=== PATIENT | female | born 1940 | race Caucasian/White ===

== ENCOUNTER 2019-01-02 16:22 | Emergency (ER) | payer MEDICARE ==
--- OUTSIDE RECORDS SUMMARY | 2019-01-02 17:22 | XMS REPORT | Continuity of Care Document ---
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 Onset: 07/09/2011 Cobalamin deficiency Levi Bliss M.D. Onset: 07/09/2011 Acute upper respiratory infection, Levi Bliss M.D. Onset: 09/17/2016 unspecified Anxiety state Levi Bliss M.D. Onset: 09/17/2016 Cataract Levi Bliss M.D. Onset: 12/29/2013 Injury of hip region Levi Bliss M.D. Onset: 10/17/2011 Social History Type Date Description Comments Sex Unknown Tobacco Use Start: Unknown Nonsmoker Tobacco Use Start: Unknown Nonsmoker Smoking Status Reviewed: 12/29/18 Nonsmoker Allergies, Adverse Reactions, Alerts Active Allergies Reaction Severity Comments Date Penicillin Medications Active Medications SIG Qnty Indications Ordering Provider Date Doxycycline 100 mg twice a 21caps S30.861A Beau Zaragoza, 12/29/2018 Monohydrate day for 21 days M.D. 100mg Capsules Ondansetron HCL take one by mouth 20tabs R11.0 Beau Zaragoza, 12/29/2018 4mg every 6 hours as M.D. Tablets needed for vomiting Doxycycline 100 mg twice a 3caps S30.861A Beau Zaragoza, 12/29/2018 Monohydrate day for 7 days. M.D. 100mg Extra pills to Capsules complete 21 day course Flonase Allergy instill 2 sprays 16units Lisa 12/20/2016 Relief in each nostril HUMPHREY Vasquez 50mcg/Act daily as needed Suspension Travatan Z instill one drop Unknown 0.004% into both eyes Solution daily Lisinopril 1 by mouth every 90tabs Levi Hollingsworth 5mg day Kellie Bliss Tablets Ranitidine 150 1 by mouth every Unknown Maximum Strength day 150mg Tablets History Medications Zestril Take 1 Tablet By 30tabs Levi Hollingsworth 04/22/2017 - 5mg Tablets Mouth Every Day Kellie Bliss 04/21/2018 Azithromycin 2 by mouth every 6tabs Christine 10/01/2016 - 250mg Tablets day x1 then 1 by Melinda, 10/06/2016 mouth every day Afnp-C x 4 more days Guaifenesin-Codeine 1-2 teaspoon 120ml Mary Gonzalez 09/27/2016 - every at bedtime HUMPHREY Vasquez 07/20/2017 100-10mg/5ML Syrup as needed for cough Benzonatate 1 by mouth three 45caps Mary Gonzalez 09/27/2016 - 100mg Capsules times a day as HUMPHREY Vasquez 11/19/2016 needed coughing Proair HFA 2 puffs every 4 1units Mary Gonzalez 09/27/2016 - 108(90Base) mcg/Act hours as needed HUMPHREY Vasquez 07/20/2017 Aerosol Prednisone 3 x 3 days 2 x 3 18tabs Levi Hollingsworth 11/16/2015 - 20mg Tablets days 1 x 3 days Kellie Bliss 01/24/2016 Flonase instill 2 sprays 16units Levi Hollingsworth 06/27/2015 - 50mcg/Act Suspension in each nostril Kellie Bliss 12/20/2016 daily as needed Doxycycline Hyclate 1 po bid 20caps Christine 09/08/2013 - 100mg [place], 09/18/2013 Capsules Afnp-C Zostavax in ject sq 1units Linda Guillermo 06/27/2012 - 49700Pcc/0.65ML Kellie Husain 11/19/2012 Solution Rec pune Lisinopril take 1 tablet by 30tabs Lisa 10/20/2011 - 5mg Tablets mouth every day HUMPHREY Vasquez 04/22/2017 Physical Therapy needs PT to jose Hollingsworth 10/17/2011 - hip Kellie Bliss 11/06/2011 Physical Therapy treatment and Levi Hollingsworth 03/08/2010 - evaluation low Kellie Bliss 10/17/2011 back pain Omeprazole 1-2 po qd 60caps 536.8 Maryam Irene 02/09/2010 - 20mg Capsules DR YIN 11/16/2015 Amrix 1 po qd 21caps 726.19 Beau Singh 12/13/2008 - 15mg Caps ER 24HR Kellie Zaragoza 12/20/2008 Physical Therapy treatment and 726.19 Beau Singh 12/13/2008 - evaluation ascencion Zaragoza M.D. 12/25/2008 shoulder pain Hydrochlorothiazide Take 1 Tablet 90tabs Levi Hollingsworth 08/12/2006 - 25mg Daily Kellie Bliss 10/17/2011 Tablets Hydrochlorothiazide 1 po qd 30caps Levi Hollingsworth 01/18/2006 - 12.5mg Kellie Bliss 08/12/2006 Capsules Tessalon Pearls 1 po tid prn 30units Sussy Mart, 03/17/2004 - 100mg Afnp-C 01/18/2006 Zithromax 2 Tabs Day 1 6units Sussy Mart, 03/17/2004 - 250mg Afnp-C 03/22/2004 1 Tab qd Days 2 Thru 5 Nasacort Aq 2 sprays q 1units Levi Hollingsworth 12/04/2002 - nostril qd Kellie Bliss 06/27/2015 Z-Pack Levi Hollingsworth 09/24/2000 - Kellie Bliss 12/04/2002 Keflex 1 PO tid 28units [facility] 04/07/1999 - 250mg [facility] 05/14/2000 [place] Zithromax 2 Tabs Day 1 6units Bacilio Guerrero, 03/13/1999 - 250mg Kellie 04/07/1999 1 Tab qd Days 2 Thru 5 Joslyn 1 bid 30units Levi Hollingsworth 05/15/1997 - 60mg Kellie Bliss 03/13/1999 Robitussin ac 1-2 tsp po q4h 4Oz Christine 05/07/1997 - prn cough [place], 09/15/2013 Afnp-C Medrol as Directed 1unqi Bansal 05/07/1997 - Kellie Mcwilliams 05/14/1997 Vancenase 0unqi Bansal 05/07/1997 - Kellie Mcwilliams 12/04/2002 Prempro 1 PO qd 0unqi Bansal 05/07/1997 - 0.625/2.5 Kellie Mcwilliams 01/18/2006 Zantac take 1 tablet by Unknown - 150mg Tablets mouth twice a 12/27/2018 day Mucinex DM 1 tablet 2 x a Unknown - 30-600mg Tablets ER day as needed 07/20/2017 12HR for cough Joslyn Allergy once daily Unknown - 60mg Tablets 11/19/2016 Patanase 2 sprays each Unknown - 0.6% Solution nare once daily 07/20/2017 Patanase 2 spray ea Unknown - 0.6% Solution nostril qd for 06/27/2015 allergies Timolol Maleate 1 gtt each eye Unknown - 0.25% Solution qd 06/27/2015 Travatan Z instill 1 drop Unknown - 0.004% Solution into both eyes 01/24/2016 daily Vitamin C 2 po qd Unknown - 1000mg Tablets 12/27/2018 Claritin 1 po qd 10tabs Unknown - 10mg Tablets 06/27/2015 Co Enzymne Q10 Unknown - 07/20/2017 Red Yeast Rice Unknown - 07/20/2017 Mucinex DM Unknown - 06/27/2015 Claritin-D 12 Hour Unknown - Tablets ER 11/21/2011 12HR Calcium W/ Vit D Unknown - 07/20/2017 Mmulti Vitamin Unknown - 07/20/2017 Lisinopril Unknown - Tablets 10/20/2011 Prevacid 1 po qd 30caps Unknown - 15mg Capsules 02/09/2010 Medications Administered in Office Medication SIG Qnty Indications Ordering Provider Date Injection Subcutaneous Or Levi Bliss M.D. 07/20/2017 Intramuscular Injection H1N1 MDCR vaccine any route Levi Bliss M.D. 07/20/2009 Injection Immunizations CPT Code Status Date Vaccine Lot # [id number] Given 06/09/2018 Pneumococcal Immunization 07970 Given 04/10/2018 High-Dose, Influenza Virus Vacccine-fluzone 65 and older 22077 Given 05/16/2015 High-Dose, Influenza Virus Vacccine-fluzone 65 and older 32607 Given 05/18/2013 DO Not Use Split Influenza Virus Vaccine 12848 Given 07/17/2012 Zostivax 37592 Given 05/14/2011 DO Not Use Split Influenza Virus Vaccine 73005 Given 02/10/2008 Tetanus And Diptheria Adult Preservative Free [id number] >7Yrs Vital Signs Date Vital Result Comment 12/30/2018 9:09am BP Systolic 122 mmHg BP Diastolic 62 mmHg Heart Rate 66 /min Body Temperature 97.2 F 12/29/2018 8:34am BP Systolic 128 mmHg BP Diastolic 60 mmHg Heart Rate 78 /min Body Temperature 97.5 F Weight 132.00 lb 12/27/2018 11:23am BP Systolic 140 mmHg BP Diastolic 62 mmHg Heart Rate 86 /min Body Temperature 97.7 F Weight 130.00 lb 03/12/2018 1:51pm BP Systolic 128 mmHg BP Diastolic 62 mmHg Heart Rate 68 /min Body Temperature 98.3 F Respiratory Rate 16 /min Height 62.5 inches 5'2.50" Weight 131.00 lb BMI (Body Mass Index) 23.6 kg/m2 07/20/2017 11:02am BP Systolic 142 mmHg BP Diastolic 80 mmHg Heart Rate 60 /min Body Temperature 97.9 F Respiratory Rate 16 /min Height 62.5 inches 5'2.50" Weight 131.00 lb BMI (Body Mass Index) 23.6 kg/m2 10/01/2016 9:51am BP Systolic 136 mmHg BP Diastolic 52 mmHg Heart Rate 88 /min Body Temperature 97.5 F Respiratory Rate 20 /min O2 % BldC Oximetry 97 % Height 62.5 inches 5'2.50" Weight 127.25 lb BMI (Body Mass Index) 22.9 kg/m2 09/27/2016 8:27am BP Systolic 144 mmHg BP Diastolic 54 mmHg Heart Rate 88 /min Body Temperature 98.9 F Respiratory Rate 18 /min Height 62.5 inches 5'2.50" Weight 134.12 lb BMI (Body Mass Index) 24.1 kg/m2 09/17/2016 9:26am BP Systolic 138 mmHg BP Diastolic 74 mmHg Heart Rate 68 /min Body Temperature 97.7 F Respiratory Rate 16 /min Height 62.5 inches 5'2.50" Weight 127.00 lb BMI (Body Mass Index) 22.9 kg/m2 02/02/2016 1:05pm BP Systolic 150 mmHg BP Diastolic 70 mmHg Heart Rate 78 /min Body Temperature 98.0 F Height 62.5 inches 5'2.50" Weight 136.38 lb BMI (Body Mass Index) 24.5 kg/m2 01/24/2016 2:33pm BP Systolic 130 mmHg BP Diastolic 58 mmHg Heart Rate 76 /min Body Temperature 98.1 F Respiratory Rate 16 /min Height 62.5 inches 5'2.50" Weight 137.00 lb BMI (Body Mass Index) 24.7 kg/m2 11/16/2015 9:19am BP Systolic 140 mmHg BP Diastolic 62 mmHg Heart Rate 72 /min Body Temperature 98.1 F Height 62.5 inches 5'2.50" Weight 134.00 lb BMI (Body Mass Index) 24.1 kg/m2 10/17/2015 3:18pm BP Systolic 124 mmHg BP Diastolic 80 mmHg Heart Rate 72 /min Body Temperature 97.9 F Respiratory Rate 20 /min O2 % BldC Oximetry 97 % Height 62.5 inches 5'2.50" Weight 134.00 lb BMI (Body Mass Index) 24.1 kg/m2 06/27/2015 1:38pm BP Systolic 126 mmHg BP Diastolic 70 mmHg Heart Rate 62 /min Body Temperature 97.4 F Respiratory Rate 16 /min Height 62.5 inches 5'2.50" Weight 132.00 lb BMI (Body Mass Index) 23.8 kg/m2 12/29/2013 1:45pm BP Systolic 134 mmHg BP Diastolic 70 mmHg Heart Rate 80 /min Body Temperature 98.6 F Respiratory Rate 16 /min Height 62.5 inches 5'2.50" Weight 135.12 lb BMI (Body Mass Index) 24.3 kg/m2 09/08/2013 10:39am BP Systolic 146 mmHg BP Diastolic 90 mmHg Heart Rate 66 /min Body Temperature 98.9 F Respiratory Rate 18 /min Height 62.5 inches 5'2.50" Weight 136.00 lb BMI (Body Mass Index) 24.5 kg/m2 11/19/2012 12:09pm BP Systolic 136 mmHg BP Diastolic 72 mmHg Heart Rate 48 /min Body Temperature 98.9 F Respiratory Rate 16 /min Height 62.5 inches 5'2.50" Weight 134.25 lb BMI (Body Mass Index) 24.2 kg/m2 11/21/2011 9:16am BP Systolic 102 mmHg BP Diastolic 62 mmHg Heart Rate 72 /min Body Temperature 98.6 F Height 62.5 inches 5'2.50" Weight 130.00 lb BMI (Body Mass Index) 23.4 kg/m2 11/06/2011 9:07am BP Systolic 138 mmHg BP Diastolic 62 mmHg Heart Rate 66 /min Body Temperature 99.0 F Height 62.5 inches 5'2.50" Weight 132.00 lb BMI (Body Mass Index) 23.8 kg/m2 10/17/2011 5:10pm BP Systolic 150 mmHg BP Diastolic 82 mmHg Heart Rate 72 /min Body Temperature 98.2 F Height 62.5 inches 5'2.50" Weight 135.00 lb BMI (Body Mass Index) 24.3 kg/m2 03/08/2010 1:42pm BP Systolic 144 mmHg BP Diastolic 70 mmHg Heart Rate 78 /min Height 62.5 inches 5'2.50" Weight 128.00 lb BMI (Body Mass Index) 23.0 kg/m2 02/09/2010 9:38am BP Systolic 148 mmHg BP Diastolic 74 mmHg Heart Rate 66 /min Body Temperature 98.5 F Height 62.5 inches 5'2.50" Weight 128.00 lb BMI (Body Mass Index) 23.0 kg/m2 02/01/2010 7:56am BP Systolic 140 mmHg BP Diastolic 70 mmHg Heart Rate 72 /min Body Temperature 97.2 F Height 62.5 inches 5'2.50" Weight 131.00 lb BMI (Body Mass Index) 23.6 kg/m2 02/16/2009 4:05pm BP Systolic 156 mmHg BP Diastolic 64 mmHg Heart Rate 68 /min Weight 129.00 lb 12/13/2008 11:42am BP Systolic 140 mmHg BP Diastolic 68 mmHg Heart Rate 72 /min Body Temperature 98.8 F Respiratory Rate 16 /min Height 62.5 inches 5'2.50" Weight 130.00 lb BMI (Body Mass Index) 23.4 kg/m2 08/24/2008 1:04pm BP Systolic 124 mmHg BP Diastolic 70 mmHg Heart Rate 72 /min Height 62.5 inches 5'2.50" Weight 126.00 lb BMI (Body Mass Index) 22.7 kg/m2 10/08/2006 9:03am BP Systolic 136 mmHg BP Diastolic 70 mmHg Heart Rate 72 /min Height 62.5 inches 5'2.50" Weight 132.00 lb BMI (Body Mass Index) 23.8 kg/m2 08/12/2006 1:21pm BP Systolic 154 mmHg BP Diastolic 80 mmHg Heart Rate 74 /min Height 62.5 inches 5'2.50" Weight 136.00 lb BMI (Body Mass Index) 24.5 kg/m2 01/18/2006 9:09am BP Systolic 144 mmHg BP Diastolic 70 mmHg Heart Rate 72 /min Height 62.5 inches 5'2.50" Weight 135.00 lb BMI (Body Mass Index) 24.3 kg/m2 03/17/2004 1:59pm BP Systolic 128 mmHg BP Diastolic 72 mmHg Heart Rate 64 /min Body Temperature 97.8 F Height 62.5 inches 5'2.50" Weight 130.00 lb BMI (Body Mass Index) 23.4 kg/m2 01/26/2003 1:50pm BP Systolic 118 mmHg BP Diastolic 60 mmHg Heart Rate 60 /min Height 62.5 inches 5'2.50" 12/29/2002 10:29am BP Systolic 124 mmHg BP Diastolic 56 mmHg Heart Rate 68 /min Body Temperature 99.5 F Height 62.5 inches 5'2.50" Weight 134.00 lb BMI (Body Mass Index) 24.1 kg/m2 12/04/2002 11:37am BP Systolic 148 mmHg BP Diastolic 68 mmHg Heart Rate 74 /min Body Temperature 98.6 F Height 62 inches 5'2" Weight 135.00 lb BMI (Body Mass Index) 24.7 kg/m2 09/10/2000 1:32pm BP Systolic 120 mmHg BP Diastolic 78 mmHg Heart Rate 80 /min Body Temperature 98.3 F Height 62 inches 5'2" Weight 139.00 lb BMI (Body Mass Index) 25.4 kg/m2 05/14/2000 9:30am BP Systolic 126 mmHg LA SM Cuff BP Diastolic 70 mmHg LA SM Cuff Heart Rate 68 /min Height 62 inches 5'2" Weight 138.00 lb BMI (Body Mass Index) 25.2 kg/m2 04/07/1999 2:11pm Body Temperature 98.4 F 03/13/1999 11:02am Body Temperature 98.2 F Weight 140.00 lb 05/07/1997 12:00am BP Systolic 104 mmHg BP Diastolic 60 mmHg Body Temperature 98.3 F Weight 135.50 lb 135 lbs. 8 ozs. Down 4.5 LBS 04/15/1997 12:00am Body Temperature 98.1 F Weight 140.00 lb Results Test Date Facility Test Result H/L Range Note CBC Electronic a 12/29/2018 Charlie Pappas([facility]) WBC 4.4 x10^3/UL 4.0- 10.0 RBC 3.81 x10^6/UL Low 3.93-6.00 HGB 11.4 g/dL Low 12.0-17.0 HCT 34 % Low 35-50 MCV 90.0 fL 80.0-95.0 MCH 29.9 pg 25.6-32.2 MCHC 33.2 g/dL 32.2-36.0 RDW-CV 11.9 % 11.6-14.4 PLT 125 x10^3/UL Low 163-400 MPV 10.4 fL 9.4-12.4 Erin# 3.80 x10^3/UL 1.56-6.13 Lymph# 0.33 x10^3/UL Low 1.18-3.74 [place]# 0.19 x10^3/UL Low 0.24-0.82 Eos # 0.0 x10^3/UL 0.0-0.5 Baso # 0.01 x10^3/UL 0.01-0.08 Erin% 86.4 % High 34.0-70.0 Lymph % 7.5 % Low 20.0-52.0 [place]% 4.3 % Low 5.0-12.0 Eos% 0.9 % 0.7-7.0 Baso% 0.2 % 0.1-1.2 Comprehensive Metabolic 03/13/2018 Charlie Elyse(a) Sodium 134 mEq/L 134-149 Prof Potassium 4.7 mEq/L 3.6-5.5 Chloride 103 mEq/L 94-112 Carbon Dioxide 24 mEq/L 21-32 Glucose 97 mg/dL 70-105 BUN 20 mg/dL 6-26 Creatinine 0.9 mg/dL 0.6-1.4 BUN/Creat Ratio 22.2 CALC 8.0-36.0 Calcium 9.2 mg/dL 8.6-10.2 Total Protein 6.4 g/dL 6.4-8.3 Albumin 4.3 g/dL 3.8-5.5 Globulin 2.1 g/dL 2.0-4.8 A/G Ratio 2.0 CALC 0.6-2.3 Alk. Phosphatase 58 U/L 30-110 Alt (SGPT) 12 U/L 7-35 Ast (Sgot) 15 U/L 5-34 Total Bilirubin 0.7 mg/dL 0.2-1.3 GFR Non- >60 ml/min/1.73m^ >=60 GFR >60 ml/min/1.73m^ >=60 Lipid Profile 03/13/2018 Charlie Elyse(a) Cholesterol 200 mg/dL 120- 200 Triglycerides 77 mg/dL 30-200 HDL Cholesterol 59 mg/dL 30-85 LDL (Calculated) 126 CALC 0-129 VLDL Cholesterol 15 mg/dL 0-50 HDL Risk Factor 3.4 CALC 0.0-4.4 CBC Electronic Fma 03/13/2018 Charlie Elyse([facility]) WBC 6.7 x10^3/UL 4.0- 10.0 RBC 3.77 x10^6/UL Low 3.93-6.00 HGB 11.5 g/dL Low 12.0-17.0 1 HCT 34 % Low 35-50 2 MCV 89.9 fL 80.0-95.0 MCH 30.5 pg 25.6-32.2 MCHC 33.9 g/dL 32.2-36.0 RDW-CV 11.7 % 11.6-14.4 PLT 190 x10^3/UL 163-400 MPV 9.5 fL 9.4-12.4 Erin# 3.47 x10^3/UL 1.56-6.13 Lymph# 2.23 x10^3/UL 1.18-3.74 [place]# 0.53 x10^3/UL 0.24-0.82 Eos # 0.4 x10^3/UL 0.0-0.5 Baso # 0.03 x10^3/UL 0.01-0.08 Erin% 51.8 % 34.0-70.0 Lymph % 33.2 % 20.0-52.0 [place]% 7.9 % 5.0-12.0 Eos% 6.6 % 0.7-7.0 Baso% 0.4 % 0.1-1.2 CBC Auto Diff 09/18/2016 [facility] [place] White Blood Count 10.8 10^3/uL N 3.5-10.8 Red Blood Count 4.09 10^6/uL N 4.0-5.4 Hemoglobin 12.5 g/dL N 12.0-16.0 Hematocrit 36 % N 35-47 Mean Corpuscular Volume 88 fL N 80-97 Mean Corpuscular Hemoglobin 31 pg N 27-31 Mean Corpuscular HGB Conc 35 g/dL N 31-36 Red Cell Distribution Width 13 % N 10.5-15 Platelet Count 256 10^3/uL N 150-450 Mean Platelet Volume 7 um3 Low 7.4-10.4 Abs Neutrophils 7.3 10^3/uL N 1.5-7.7 Abs Lymphocytes 2.3 10^3/uL N 1.0-4.8 Abs Monocytes 0.7 10^3/uL N 0-0.8 Abs Eosinophils 0.4 10^3/uL N 0-0.6 Abs Basophils 0.1 10^3/uL N 0-0.2 Abs Nucleated RBC 0.01 10^3/uL N Granulocyte % 67.5 % N 38-83 Lymphocyte % 21.2 % Low 25-47 Monocyte % 6.9 % N 1-9 Eosinophil % 3.8 % N 0-6 Basophil % 0.6 % N 0-2 Nucleated Red Blood Cells % 0.1 N Comp Metabolic Panel 09/18/2016 [facility] Sodium 128 mmol/L Low 133-145 Potassium 4.9 mmol/L N 3.5-5.0 Chloride 96 mmol/L Low 101-111 Co2 Carbon Dioxide 28 mmol/L N 22-32 Anion Gap 4 mmol/L N 2-11 Glucose 95 mg/dL N 70-100 Blood Urea Nitrogen 11 mg/dL N 6-24 Creatinine 0.82 mg/dL N 0.51-0.95 BUN/Creatinine Ratio 13.4 N 8-20 Calcium 9.7 mg/dL N 8.6-10.3 Total Protein 6.7 g/dL N 6.4-8.9 Albumin 4.5 g/dL N 3.2-5.2 Globulin 2.2 g/dL N 2-4 Albumin/Globulin Ratio 2.0 N 1-3 Total Bilirubin 0.80 mg/dL N 0.2-1.0 Alkaline Phosphatase 69 U/L N 34-104 Alt 18 U/L N 7-52 Ast 15 U/L N 13-39 Egfr Non- 68.1 N >60 Egfr 87.6 N >60 3 Lipid Profile (Trig/Chol/HDL) 09/18/2016 [facility] [place] Triglycerides 127 mg/dL N 4 Cholesterol 175 mg/dL N 5 HDL Cholesterol 48.5 mg/dL N 6 LDL Cholesterol 101 mg/dL N 7 Laboratory test 11/16/2015 [facility] Sedimentation Rate 10mm finding (607)- - Complete Blood 11/16/2015 Guerra Elyse([facility]) WBC 6.9 3.6-9.6 Count x10^3/UL RBC 4.17 x10^6/UL 3.90-5.70 HGB 13.1 g/dL 12.1-17.2 HCT 38 % 36-50 MCV 90.0 fL 82.2-97.4 MCH 31.3 pg 27.6-33.3 MCHC 34.7 g/dL 33.0-35.5 RDW 12.7 % 11.6-13.7 PLT 236 x10^3/UL 150-400 MPV 7.7 fL 7.4-10.4 Gran # 5.1 x10^3/UL 1.5-7.2 Lymph# 1.4 x10^3/UL 0.7-4.9 [place]# 0.4 x10^3/UL 0.1-0.9 Gran % 72.7 % 42.2-75.2 Lymph % 21.5 % 20.5-51.1 [place]% 5.8 % 1.7-9.3 Laboratory test 11/16/2015 [facility] Immunoglobulin E, 258 IU/mL High 0- 100 8 finding [address] [place] [address] (607)- - Comprehensive 06/29/2015 Charlie Elyse([facility]) Sodium 132 mEq/L Low 134- 149 9 Metabolic Prof Potassium 4.4 mEq/L 3.6-5.5 Chloride 95 mEq/L 94-112 Carbon Dioxide 25 mEq/L 21-32 Glucose 106 mg/dL High 70-105 10 BUN 20 mg/dL 6-26 Creatinine 0.8 mg/dL 0.6-1.4 BUN/Creat Ratio 25.0 CALC 8.0-36.0 Calcium 10.0 mg/dL 8.6-10.2 Total Protein 7.5 g/dL 6.4-8.3 Albumin 4.8 g/dL 3.8-5.5 Globulin 2.7 g/dL 2.0-4.8 A/G Ratio 1.8 CALC 0.6-2.3 Alk. Phosphatase 59 U/L 30-110 Alt (SGPT) 18 U/L 7-35 Ast (Sgot) 26 U/L 5-34 Total Bilirubin 0.8 mg/dL 0.2-1.3 GFR Non- >60 ml/min/1.73m^ >=60 GFR >60 ml/min/1.73m^ >=60 Lipid Profile 06/29/2015 Charlie Elyse([facility]) Cholesterol 226 mg/dL High 120-200 Triglycerides 92 mg/dL 30-200 HDL Cholesterol 65 mg/dL 30-85 LDL (Calculated) 143 CALC High 0-129 VLDL Cholesterol 18 mg/dL 0-50 HDL Risk Factor 3.5 CALC 0.0-4.4 Complete Blood Count 06/29/2015 Charlie Elyse(a) WBC 7.2 x10^3/UL 3.6 -9.6 RBC 4.05 x10^6/UL 3.90-5.70 HGB 12.6 g/dL 12.1-17.2 HCT 37 % 36-50 MCV 91.0 fL 82.2-97.4 MCH 31.0 pg 27.6-33.3 MCHC 33.9 g/dL 33.0-35.5 RDW 12.4 % 11.6-13.7 PLT 243 x10^3/UL 150-400 MPV 7.6 fL 7.4-10.4 Gran # 4.5 x10^3/UL 1.5-7.2 Lymph# 2.4 x10^3/UL 0.7-4.9 [place]# 0.3 x10^3/UL 0.1-0.9 Gran % 60.0 % 42.2-75.2 Lymph % 34.5 % 20.5-51.1 [place]% 5.5 % 1.7-9.3 Comprehensive Metabolic 11/27/2012 Charlie Pappas([facility]) Albumin 4.7 g/dL 3.8-5.5 Prof Alk. Phos. 69 U/L 30-110 Alt (SGPT) 17 U/L 7-35 Ast (Sgot) 18 U/L 5-34 BUN 15 mg/dL 6-26 Calcium 9.4 mg/dL 8.6-10.2 Chloride 98 mEq/L 94-112 Creatinine 0.9 mg/dL 0.6-1.4 Carbon Dioxide 25 mEq/L 21-32 Glucose 99 mg/dL 70-105 Sodium 134 mEq/L 134-149 Total Bilirubin 0.8 mg/dL 0.2-1.3 Total Protein 6.7 g/dL 6.3-8.1 Potassium 4.8 mEq/L 3.6-5.5 Globulin 2.0 g/dL 2.0-4.8 A/G Ratio 2.3 Calc 0.6-2.3 BUN/Creat Ratio 16.3 Calc 8.0-36.0 Lipid Profile 11/27/2012 Guerra Elyse([facility]) Cholesterol 222 mg/dL High 120-200 HDL 57 mg/dL 30-85 Triglycerides 81 mg/dL 30-200 HDL Risk Factor 3.9 CALC 0.0-4.4 LDL (Calculated) 149 CALC High 0-129 VLDL (Calculated) 16 mg/dL 0-50 Laboratory test 11/06/2011 [facility] Hematocrit 40 % 36.1 - finding (607)- - (Fma/CMC/CTX) 50.3 Comprehensive 05/18/2011 Guerra Elyse([facility]) Albumin 4.7 g/dL 3.8-5.5 Metabolic Prof Alk. Phos. 77 U/L 30-110 Alt (SGPT) 19 U/L 7-35 Ast (Sgot) 21 U/L 5-34 BUN 16 mg/dL 6-26 Calcium 9.3 mg/dL 8.6-10.2 Chloride 104 mEq/L 94-112 Creatinine 0.7 mg/dL 0.6-1.4 Carbon Dioxide 22 mEq/L 21-32 Glucose 94 mg/dL 70-105 Sodium 135 mEq/L 134-149 Total Bilirubin 0.6 mg/dL 0.2-1.3 Total Protein 6.9 g/dL 6.3-8.1 Potassium 3.8 mEq/L 3.6-5.5 Globulin 2.2 g/dL 2.0-4.8 A/G Ratio 2.1 Calc 0.6-2.2 BUN/Creat Ratio 23.4 Calc 8.0-36.0 Lipid Profile 05/18/2011 Guerra Elyse([facility]) Cholesterol 232 mg/dL High 120-200 HDL 64 mg/dL 30-85 Triglycerides 78 mg/dL 30-200 HDL Risk Factor 3.6 CALC 0.0-4.0 LDL (Calculated) 152 CALC High 0-129 VLDL (Calculated) 16 mg/dL 0-50 Laboratory test finding 05/18/2011 Guerra Elyse([facility]) B12 659 pg/mL 230 -1050 Comprehensive Metabolic 03/13/2010 Guerra Elyse([facility]) Albumin 4.5 g/dL 3.8-5.5 Prof Alk. Phos. 64 U/L 30-110 Alt (SGPT) 24 U/L 7-35 Ast (Sgot) 34 U/L 5-34 BUN 19 mg/dL 6-26 Calcium 10.2 mg/dL 8.6-10.2 Chloride 88 mEq/L Low 94-112 11 Creatinine 0.8 mg/dL 0.6-1.4 Carbon Dioxide 29 mEq/L 21-32 Glucose 97 mg/dL 70-105 Sodium 129 mEq/L Low 134-149 12 Total Bilirubin 0.9 mg/dL 0.2-1.3 Total Protein 6.7 g/dL 6.3-8.1 Potassium 4.0 mEq/L 3.6-5.5 Globulin 2.2 g/dL 2.0-4.8 A/G Ratio 2.1 Calc 0.6-2.2 BUN/Creat Ratio 24.0 Calc 8.0-36.0 Lipid Profile 03/13/2010 Guerra Elyse([facility]) Cholesterol 225 mg/dL High 120-200 HDL 53 mg/dL 30-85 Triglycerides 121 mg/dL 30-200 HDL Risk Factor 4.2 CALC 4.2-7.0 LDL (Calculated) 147 CALC High 0-129 VLDL (Calculated) 24 mg/dL 0-50 CBC ([facility]) 03/13/2010 [facility] Medicine WBC 8.7 3.6-9.6 (607)- - RBC 4.43 3.90-5.70 Hemoglobin (Fma/CMC/CTX) 13.3 g/dL 12.1 - 17.2 Hematocrit (Fma/CMC/CTX) 39.3 % 36.1 - 50.3 Mean Corpuscular Vol 88.7 82.2-97.4 Mean Corpuscular Hemaglobin 30.0 27.6-33.3 Mean Corpuscular Hemo Concen 33.8 33.0-36.0 Platelets 228 10^3/ul 150-400 Lymph% 20.8 20.5-51.1 Mixed% 6.0 Neutrophils % 73.2 RDW 11.6 11.6-13.7 Mean Platelet Volume 11.3 High 7.4-10.4 Comprehensive Metabolic 02/23/2009 [place]([facility]) Albumin 4.6 g/dL 3.8-5.5 13 Prof Alk. Phos. 71 U/L 30-110 Alt (SGPT) 19 U/L 7-35 Ast (Sgot) 21 U/L 5-34 BUN 16 mg/dL 6-26 Calcium 9.9 mg/dL 8.6-10.2 Chloride 97 mEq/L 94-112 Creatinine 0.8 mg/dL 0.6-1.4 Carbon Dioxide 27 mEq/L 21-32 Glucose 100 mg/dL 70-105 Sodium 138 mEq/L 134-149 Total Bilirubin 1.0 mg/dL 0.2-1.3 Total Protein 7.3 g/dL 6.3-8.1 Potassium 4.6 mEq/L 3.6-5.5 Globulin 2.8 g/dL 2.0-4.8 A/G Ratio 1.6 Calc 0.6-2.2 BUN/Creat Ratio 20.7 Calc 8.0-36.0 Lipid Profile 02/23/2009 [place](a) Cholesterol 222 mg/dL High 120-200 HDL 74 mg/dL 30-85 Triglycerides 120 mg/dL 30-200 HDL Risk Factor 3.0 CALC Low 4.2-7.0 LDL (Calculated) 124 CALC 0-129 VLDL (Calculated) 24 mg/dL 0-50 Complete Blood Count 02/23/2009 [facility] [place](a) WBC 6.9 x10^3/uL 3.6 -9.6 Gran# 4.9 x10^3/uL 1.5-7.2 Gran% 71.4 % 42.2-75.2 HCT 42 % 36-50 HGB 14.3 g/dL 12.1-17.2 Lymph# 1.7 x10^3/uL 0.7-4.9 Lymph% 24.8 % 20.5-51.1 MCH 30.1 pg 27.6-33.3 MCV 89.4 fL 82.2-97.4 MCHC 33.7 g/dL 33.0-35.5 Mo# 0.3 x10^3/uL 0.1-0.9 Mo% 3.8 % 1.7-9.3 MPV 7.5 fL 7.4-10.4 PLT 257 x10^3/uL 150-400 RBC 4.74 x10^6/uL 3.90-5.70 RDW 11.6 % 11.6-13.7 Laboratory test 02/23/2009 [facility](a) TSH 1.37 mIU/L 0.50-6.00 finding Comprehensive 02/10/2008 Charlie Pappas([facility]) Albumin 4.4 g/dL 3.8-5.5 Metabolic Prof Alk. Phos. 75 U/L 30-110 Alt (SGPT) 29 U/L 7-35 Ast (Sgot) 25 U/L 5-34 BUN 14 mg/dL 6-26 Calcium 9.8 mg/dL 8.6-10.2 Chloride 94 mEq/L 94-112 Creatinine 0.9 mg/dL 0.6-1.4 Carbon Dioxide 28 mEq/L 21-32 Glucose 101 mg/dL 70-105 Sodium 131 mEq/L Low 134-149 14 Total Bilirubin 0.8 mg/dL 0.2-1.3 Total Protein 6.8 g/dL 6.3-8.1 Potassium 4.2 mEq/L 3.6-5.5 Globulin 2.4 g/dL 2.0-4.8 A/G Ratio 1.8 Calc 0.6-2.2 BUN/Creat Ratio 15.0 Calc 8.0-36.0 Lipid Profile 02/10/2008 Charlie Pappas([facility]) Cholesterol 202 mg/dL High 120-200 15 HDL 59 mg/dL 30-85 Triglycerides 66 mg/dL 30-200 16 HDL Risk Factor 3.4 CALC Low 4.2-7.0 LDL (Calculated) 130 CALC High 0-129 VLDL (Calculated) 13 mg/dL 0-50 Complete Blood Count 02/10/2008 Charlie Pappas([facility]) WBC 5.3 x10^3/u 3.6- 9.6 Gran# 3.5 x10^3/u 1.5-7.2 Gran% 66.7 % 42.2-75.2 HCT 40 % 36-50 HGB 13.7 g/dL 12.1-17.2 Lymph# 1.5 x10^3/u 0.7-4.9 Lymph% 27.8 % 20.5-51.1 MCH 30.7 pg 27.6-33.3 MCV 89.3 fL 82.2-97.4 MCHC 34.4 g/dL 33.0-35.5 Mo# 0.3 x10^3/u 0.1-0.9 Mo% 5.5 % 1.7-9.3 MPV 8.3 fL 7.4-10.4 PLT 260 x10^3/u 150-400 RBC 4.47 x10^6/u 3.90-5.70 RDW 11.8 % 11.6-13.7 Lipid 10/08/2006 [facility] Cholesterol 236 mg/dL High 120-200 Panel-ALL Lab (607)- - (Fma/CMC/[facility]) Companies HDL-Chol 56 mg/dL 30-85 Triglyceride 125 mg/dL 30-200 LDL/HDL Chol. Ratio (F/C/CTX) - Chol./HDL Ratio (Fma/CMC/CTX) - Low 30-85 LDL, Calculated ([facility]) 155 mg/dL High 0-129 HDL Risk Factor (Fma) 4.2 CALC 4.2-7.0 Lipid Profile 01/18/2006 [facility] Cholesterol 250 mg/dL High 120- 200 (a) Female (607)- - (Fma/CMC/[facility]) Triglyceride 115 mg/dL 30-200 HDL-Chol 58 mg/dL 30-85 LDL, Calculated (Fma/CMC) 168 CALC High 0-129 VLDL 23 0-50 HDL Risk Factor (Fma) 4.3 CALC 4.2-7.0 Comp Metabolic 01/18/2006 [facility] Glucose, Serum 102 mg/dL 70- 105 (a) Female (607)- - (Fma/CMC/CTX) BUN (Fma/CMC/[facility]) 15 mg/dL 6-26 Creatinine, Serum 0.8 mg/dL 0.6-1.4 BUN/Creatinin Ratio 18.0 8.0-36 Sodium 139 134-149 Potassium 4.4 3.6-5.5 Chloride 98 mEq/L 94-112 Co2 26 21-32 Calcium (Fma/CMC/[facility]) 9.9 mg/dL 8.6-10.2 Total Protein 7.5 g/dL 6.3-8.1 Albumin (Fma/CMCC/[facility]) 4.9 3.8-5.5 Globulin 2.6 2.0-4.8 A/G Ratio (A/G Ratio) 1.9 0.6-2.2 Alkaline Phosphatase (F/C/CTX) 88 U/L 30-110 Alt (SGPT) Female (Fma) 20 7-35 Ast Sgot 19 U/L 5-34 Bilirubin, Total 0.8 mg/dL 0.2-1.3 CBC Electronic ([facility]) 01/02/2005 [facility] WBC 6.1 3.6-9.6 (607)- - Lymphocytes 27.2 % 20.5 - 51.1 Monocytes 5.1 % 1.7-9.3 Granulocytes 67.7 % 42.2 - 75.2 Lymphocytes 1.7 10^3/uL 0.7 - 4.9 Monocytes 0.3 10^3/uL 0.1 - 0.9 Granulocytes 4.1 10^3/uL 1.5 - 7.2 RBC 4.34 3.90-5.70 Hemoglobin (Fma/CMC/CTX) 13.3 g/dL 12.1 - 17.2 Hematocrit (a/CMC/CTX) 39.0 % 36.1 - 50.3 Mean Corpuscular Vol 89.8 82.2-97.4 Mean Corpuscular Hemaglobin 30.5 27.6-33.3 Mean Corpuscular Hemo Concen 34.0 33.0-36.0 RDW 11.9 11.6-13.7 Platelets 226. 10^3/ul 150-400 Mean Platelet Volume 7.5 7.4-10.4 Lipid Profile ([facility]) 01/02/2005 [facility] Cholesterol 224 mg/dL High 120-200 Female (607)- - Triglyceride 70 mg/dL 30-200 HDL-Chol 55 mg/dL 30-85 LDL, Calculated ([facility]/CMC) 154 CALC High 0-129 LDL, Direct - mg/dL 0-130 VLDL 14 0-50 HDL Risk Factor ([facility]) 4.0 CALC Low 4.2-7.0 Comp Metabolic 01/02/2005 [facility] Glucose, Serum 94 mg/dL 70- 105 ([facility]) Female (607)- - (Fma/CMC/CTX) BUN (a/CMC/[facility]) 18 mg/dL 6-26 Creatinine, Serum 0.7 mg/dL 0.6-1.4 BUN/Creatinin Ratio 24.1 8.0-36 Sodium 143 134-149 Potassium 4.7 3.6-5.5 Chloride 103 mEq/L 94-112 Co2 28 21-32 Calcium (a/CMC/[facility]) 9.8 mg/dL 8.6-10.2 Total Protein 7.0 g/dL 6.3-8.1 Albumin (a/CMCC/[facility]) 4.3 3.8-5.5 Globulin 2.6 2.0-4.8 A/G Ratio (A/G Ratio) 1.6 0.6-2.2 Alkaline Phosphatase (F/C/CTX) 74 U/L 22-95 Alt (SGPT) (a/CMC/[facility]) 19 7-35 Ast (Sgot) (a/CMC/[facility]) 20 U/mL 5-34 Bilirubin, Total 1.0 mg/dL 0.2-1.3 Lipid Profile ([facility]) 12/11/2002 [facility] Cholesterol 187 mg/dL 120 -200 (607)- - Triglyceride 360 mg/dL High 30-200 HDL-Chol 45 30-85 LDL-Calculated ([facility]) INVALID CALC 0-129 VLDL 72 High 0-50 HDL Risk Factor ([facility]) 4.1 CALC Low 4.2-7.0 Laboratory test finding 12/11/2002 [facility] LDL, Direct 81 mg/dL 0-130 (607)- - TSH 1.71 uIU/ml 0.5-6.0 Comp Metabolic 12/11/2002 [facility] Glucose, Serum 110 mg/dL 70- 118 (a) (607)- - (Fma/CMC/CTX) BUN (a/CMC/[facility]) 18 mg/dL 7-26 Creatinine (a/CMC/CTX) 0.7 mg/dL 0.6-1.4 BUN/Creatinin Ratio 24.6 8.0-36 Sodium 145 134-149 Potassium 4.2 3.6-5.5 Chloride 106 mEq/L 94-112 Co2 24 21-32 Calcium (a/CMC/[facility]) 9.6 mg/dL 8.6-10.0 Total Protein 6.9 g/dL 6.3-8.1 Albumin (a/CMCC/[facility]) 4.3 3.8-5.5 Globulin 2.6 2.0-4.8 A/G Ratio (Fma/CMC/[facility]) 1.7 0.6-2.2 Alkaline Phosphatase (F/C/CTX) 68 U/L 30-110 Alt (SGPT) 17 10-40 Ast (Sgot) (Fma/CMC/[facility]) 19 U/mL 5-34 Bilirubin, Total 0.6 mg/dL 0.2-1.3 CBC Electronic ([facility]) 12/11/2002 [facility] WBC 6.6 3.6-9.6 (607)- - Lymphocytes 24.0 % 20.5 - 51.1 Monocytes 5.3 % 1.7-9.3 Granulocytes 70.7 % 42.2 - 75.2 Lymphocytes 1.6 10^3/uL 0.7 - 4.9 Monocytes 0.3 10^3/uL 0.1 - 0.9 Granulocytes 4.7 10^3/uL 1.5 - 7.2 RBC 4.48 3.90-5.70 Hemoglobin (a/CMC/CTX) 13.9 g/dL 12.1 - 17.2 Hematocrit ([facility]/CTX) 41.1 % 36.1 - 50.3 Mean Corpuscular Vol 91.7 82.2-97.4 Mean Corpuscular Hemaglobin 31.0 27.6-33.3 Mean Corpuscular Hemo Concen 33.8 33.0-34.8 RDW 11.5 Low 11.6-13.7 Platelets 195. 10^3/ul 150-400 Mean Platelet Volume 8.3 7.4-10.4 Occult Blood (3) 06/11/2000 [facility] Occult Blood #1 NEG (607)- - Occult Blood #2 NEG 05/21/00 Occult Blood #3 NEG 05/25/00 Lipid Panel [facility] 04/19/1999 Triglyceride 170 mg/dL <200 Cholesterol 185 mg/dL <200 HDL-Chol 51 mg/dL >34 LDL-Calculated 100 mg/dL 0-130 Cholesterol / HDL Ratio 3.63 (CALC) <4.45 Comp Metabolic ([facility]) 04/19/1999 Glucose 100 mg/dL 70-115 BUN 10 mg/dL 7-25 Creatinine 0.9 mg/dL 0.5-1.4 BUN/Creatinin Ratio 11 (CALC) 6-25 Sodium 141 mEq/L 135-146 Potassium 4.4 mEq/L 3.5-5.3 Chloride 106 mEq/L 95-108 Co2 31 mEq/L 20-32 Calcium 9.3 mg/dL 8.5-10.3 Protein 6.6 g/dL 6.0-8.5 Albumin 4.1 g/dL 3.2-5.0 Globulin 2.5 g/dL 2.2-4.2 Albumin / Globulin Ratio 1.6 (CALC) 0.8-2.0 Bilirubin, Total 0.7 mg/dL 0.0-1.3 Alkaline Phosphatase 43 U/L 20-125 Ast (Sgot) 16 U/L 0-42 CBC With Diff ([facility]) 04/19/1999 WBC 6.1 thous/L 3.8-10.8 RBC 4.15 mill/L 3.9-5.20 Hemoglobin 13.1 g/dL 12.0-15.6 Hematocrit 39.7 % 35-46 Mean Corpuscular Vol 95.6 FL 80.0-100.0 Mean Corpuscular Hemaglobin 31.7 pg 27.0-33.0 Mean Corpuscular Hemo Concen 33.2 g/dL 32.0-36.0 RDW 13.0 % 9.0-15.0 Platelets 183 thous/L 130-400 Abs Neutrophils 3782 thous/L 5891-5852 Neutrophils 62 % Abs Lymphs 1830 cells/L 850-4100 Lymphocytes 30 % Abs Mononuclear 305 cells/L 200-1100 Abs Eosinophils 183 cells/L 50-550 Eosinophil 3 % Abs Basophils 0 cells/L 0-200 Basophil% 0 % Laboratory test finding 04/19/1999 TSH 2.8 IU/mL 0.4-5.5 1 RESULTS VERIFIED BY REPEAT ANALYSIS 2 RESULTS VERIFIED BY REPEAT ANALYSIS 3 Because ethnic data is not always readily available, this report includes an eGFR for both -Americans and non- Americans. The National Kidney Disease Education Program (NKDEP) does not endorse the use of the MDRD equation for patients that are not between the ages of 18 and 70, are , have extremes of body size, muscle mass, or nutritional status, or are non- or non-. According to the National Kidney Foundation, irrespective of diagnosis, the stage of the disease is based on the level of kidney function: Stage Description GFR(mL/min/1.73 m(2)) 1 Kidney damage with normal or decreased GFR 90 2 Kidney damage with mild decrease in GFR 60-89 3 Moderate decrease in GFR 30-59 4 Severe decrease in GFR 15-29 5 Kidney failure <15 (or dialysis) 4 Desirable <150 Borderline high 150-199 High 200-499 Very High >500 5 Desirable <200 Borderline high 200-239 High >239 6 Low <40 Desirable: 40-60 High: >60 7 Desirable: <100 mg/dL Near Optimal: 100-129 mg/dL Borderline High: 130-159 mg/dL High: 160-189 mg/dL Very High: >189 mg/dL 8 1 sst 9 RESULTS VERIFIED BY REPEAT ANALYSIS 10 RESULTS VERIFIED BY REPEAT ANALYSIS 11 RESULT RECKD' 12 RESULT FRANCINE'D 13 FASTING 14 RESULT FRANCINE'D 15 RESULT FRANCINE'D 16 RESULT FRANCINE'D Procedures Date Code Description Status 02/26/2018 [id number] Mammogram Completed 07/20/2017 84618 Injection Subcutaneous Or Intramuscular Completed 02/06/2017 [id number] Mammogram Completed 10/01/2016 08061 Pulse Oximetry Completed 09/27/2016 77896 Nebulizer Treatment Completed 02/01/2016 [id number] Mammogram Completed 10/17/2015 87532 Pulse Oximetry Completed 10/17/2015 07946 Cintia flow vital capacity, total (seperate procedure) Completed 10/19/2014 [id number] Mammogram Completed 06/18/2012 [id number] Mammogram Completed 11/06/2011 12200 Finger Or Heel Stick Completed 06/13/2011 [id number] Mammogram Completed 06/12/2010 [id number] Mammogram Completed 02/09/2010 35951 Electrocardiogram Complete Completed 06/08/2009 [id number] Mammogram Completed 08/24/2008 94780 Electrocardiogram Complete Completed 06/07/2008 [id number] Mammogram Completed 06/04/2007 [id number] Mammogram Completed 11/19/2006 [id number] Colonoscopy Completed 11/12/2006 [id number] Bone Mineral Density Test Completed 04/19/2006 [id number] Mammogram Completed 05/14/2000 37737 Electrocardiogram Complete Completed Encounters Type Date Location Provider Dx Diagnosis Office Visit 12/27/2018 11:15a [facility] HUMPHREY Nunez R05 Cough R51 Headache J30.2 Other seasonal allergic rhinitis Office Visit 03/12/2018 1:40p [facility] Levi Hollingsworth I1Katherine Essential ( primary) Kellie Bliss hypertension F41.9 Anxiety disorder, unspecified R06.02 Shortness of breath Office Visit 07/20/2017 11:00a [facility] Levi Hollingsworth M25.511 Pain in right Kellie Bliss shoulder Office Visit 10/01/2016 9:45a [facility] Christine J06.9 Acute upper [place]dor[place], respiratory Afnp-C infection, unspecified J18.8 Other pneumonia, unspecified organism Office Visit 09/27/2016 8:15a [facility] HUMPHREY Nunez R05 Cough J20.9 Acute bronchitis, unspecified Office Visit 09/17/2016 9:20a [facility] Levi Hollingsworth I1Katherine Essential ( primary) Kellie Bliss hypertension J06.9 Acute upper respiratory infection, unspecified F41.9 Anxiety disorder, unspecified Office Visit 02/02/2016 1:00p [facility] Sussy Blackwelligne, N63 Unspecified lump Afnp-C in breast N64.59 Other signs and symptoms in breast Office Visit 01/24/2016 2:30p [facility] Sussy Mart, N63 Unspecified lump Afnp-C in breast Office Visit 11/16/2015 9:10a [facility] Levi Hollingsworth R05 Cough Kellie Bliss Office Visit 10/17/2015 3:00p [facility] Office Levi Hollingsworth R06.02 Shortness of Kellie Bliss breath Office Visit 06/27/2015 1:40p [facility] Levi Chauhan Essential Kellie Bliss (primary) hypertension Office Visit 12/29/2013 1:40p [facility] Levi Hollingsworth 366.9 Cataract Unspec Kellie Bliss 401.9 Hypertension Unspec V72.83 Examination Preoperative Other Spec Office Visit 09/08/2013 10:30a [facility] Christine 465.9 URI Upper [place]dor[place], Afnp-C Respiratory Infections Acute Unspec Sites 473.9 Sinusitis Chronic Unspec Office Visit 11/19/2012 12:00p [facility] Levi Hollingsworth 401.9 Hypertension Kellie Bliss Unspec Office Visit 11/21/2011 9:20a [facility] Levi Hollingsworth 959.6 Injury Hip & Thigh Kellie Bliss Other & Unspec Office Visit 11/06/2011 9:10a [facility] Levi Hollingsworth 959.6 Injury Hip & Thigh Kellie Bliss Other & Unspec Office Visit 10/17/2011 5:10p [facility] Office Levi Hollingsworth 959.6 Injury Hip & Thigh Kellie Bliss Other & Unspec Office Visit 03/08/2010 1:40p [facility] Levi Hollingsworth 536.8 Stomach Dyspepsia Kellie Bliss & Other Spec Disorders Of Function 401.9 Hypertension Unspec 719.46 Pain Joint Lower Leg 724.5 Backache Unspec Office Visit 02/09/2010 9:30a [facility] Maryam Irene 536.8 Stomach Dyspepsia [employer] & Other Spec Disorders Of Function Office Visit 02/01/2010 8:00a [facility] Office Renzo Singh 729.5 Pain In Limb Kellie Deluna Office Visit 02/16/2009 4:00p [facility] Office Levi Hollingsworth 401.9 Hypertension Kellie Bliss Unspec 536.8 Stomach Dyspepsia & Other Spec Disorders Of Function 272.4 Hyperlipidemia Other Unspec Office Visit 12/13/2008 11:30a [facility] Office Beau Singh 726.19 Shoulder Disorders Kellie Zaragoza Other Spec Office Visit 08/24/2008 1:00p [facility] Office Levi Hollingsworth 536.8 Stomach Dyspepsia Kellie Bliss & Other Spec Disorders Of Function Office Visit 02/10/2008 8:00a [facility] Office Levi Hollingsworth 401.9 Hypertension Kellie Bliss Unspec V06.5 Tetanus Diphtheria (DT) Office Visit 10/08/2006 9:00a [facility] Office Levi Hollingsworth 401.9 Hypertension Kellie Bliss Unspec 272.4 Hyperlipidemia Other Unspec Office Visit 08/12/2006 1:00p [facility] Levi Hollingsworth 401.9 Hypertension Unspec Kellie Bliss 272.4 Hyperlipidemia Other Unspec Office Visit 01/18/2006 9:10a [facility] Levi Hollingsworth 401.9 Hypertension Unspec Kellie Bliss 272.4 Hyperlipidemia Other Unspec 780.79 Malaise And Fatigue Other Office Visit 01/02/2005 8:00a [facility] Levi Hollingsworth 780.79 Malaise And Kellie Bliss Fatigue Other V17.3 History Family Ischemic Heart Disease V77.91 Screening For Lipoid Disorders Office Visit 03/17/2004 2:00p [facility] Office Sussy Brittny, 466.0 Bronchitis Acute Afnp-C Office Visit 01/26/2003 1:40p [facility] Office Levi Hollingsworth 611.72 Lump Or Mass Dago Bliss. Breast Office Visit 12/29/2002 10:20a [facility] Office Levi Hollingsworth V70.0 Examination Kellie Bliss General Medical Routine AT Health Care Facility Office Visit 12/04/2002 11:30a [facility] Office Sussy Mart, V65.5 Person W/ Feared Afnp-C Complaint In Whom No Diagnosis Was Made Office Visit 09/10/2000 1:20p [facility] Office Levi Bliss M.D. Office Visit 05/14/2000 9:20a [facility] Levi Bliss M.D. Plan of Treatment 12/30/2018 - Jacque Vazquez, PAS30.861A Insect bite (nonvenomous) of abdominal wall, initial encountComments:See Kleber/ Gurwinder today for emergent eval of her expanding rash. Follow up here pending upon Derm f/u. Continue Joslyn or Claritin as well as Zofran until nausea has subsided.AllComments:PCMHMedication Management Patient Understands medications he's taking? Yes Are there Barriers to Adherence? No Has the patient been asked about herbal supplements and therapies, and OTC meds? Yes Care Plan1. Patient has been queried about patient's goals/preferences and functional/lifestyle goals at relevant visits. Yes If relevant, describe: N/A2. Treatment goals as explained to the patient: above3. Are there barriers to meeting treatment goals ? No If Yes, please describe:4. Self-Management goals as described to the patient: Yes As always, we strongly encourage a healthy diet and making physical activity a part of your every day life. If you have questions about how or where to start, please contact the office.
--- OUTSIDE RECORDS SUMMARY | 2019-01-02 17:22 | XMS REPORT | Continuity of Care Document ---
:1940 External Reference #:[id number] Author Name MARIBELL Bowman Address [address] [facility] [place] [address] Care Team Providers Name Role Phone Levi Bliss MD Care Team Information Guidance Services Coordinator Unavailable Levi Bliss MD Primary Care Physician Unavailable Payers Date Identification Numbers Payment Provider Subscriber Effective: 2007 Policy Number: [id number] [place] PayID: [id number] [address] [place] [address] Effective: 2007 Policy Number: [id number] [place]ider Expires: 2018 PayID: [id number] [address] [place] [address] Effective: 2012 Policy Number: [id number] [facility] Amber Haider Options PayID: [id number] [address] [place] [address] Problems Active Problems Provider Date Essential hypertension [...] 250mg Tablets day x1 then 1 by Melinda 10/06/2016 mouth every day Afnp-C x 4 more days Guaifenesin-Codeine 1-2 teaspoon 120ml Mary Gonzalez 09/27/2016 - every at bedtime HUMPHREY Vasquez 07/20/2017 100-10mg/5ML Syrup as needed for cough Benzonatate 1 by mouth three 45caps Mary Gonzalez 09/27/2016 - 100mg Capsules times a day as HUMPHREY Vasquez 11/19/2016 needed coughing Proair HFA 2 puffs every 4 1units Mary oGnzalez 09/27/2016 - 108(90Base) mcg/Act hours as needed [...] ject sq 1units Linda Guillermo 06/27/2012 - 98768Xus/0.65ML Kellie Husain 11/19/2012 Solution Rec pune Lisinopril take 1 tablet by 30tabs Lisa 10/20/2011 - 5mg Tablets mouth every day HUMPHREY Vasquez 04/22/2017 Physical Therapy needs PT to jose Hollingsworth 10/17/2011 - hip Kellie Bliss 11/06/2011 Physical Therapy treatment and Levi Hollingsworth 03/08/2010 - evaluation low Kellie Bliss 10/17/2011 back pain Omeprazole 1-2 po qd 60caps 536.8 Maryam Irene, 02/09/2010 - 20mg Capsules DR YIN 11/16/2015 [...] Medicine 04/07/1999 - 250mg [facility] 05/14/2000 [place] Zithromax 2 Tabs Day 1 6units Bacilio Guerrero, 03/13/1999 - 250mg Kellie 04/07/1999 1 Tab qd Days 2 Thru 5 Joslyn 1 bid 30units Levi Hollingsworth 05/15/1997 - 60mg Kellie Bliss 03/13/1999 Robitussin ac 1-2 tsp po q4h 4Oz Christine 05/07/1997 [facility] Afnp-C Medrol as Directed 1unqi Bansal [...] CPT Code Status Date Vaccine Lot # [id number] Given 06/09/2018 Pneumococcal Immunization 57331 Given 04/10/2018 High-Dose, Influenza Virus Vacccine-fluzone 65 and older 47167 Given 05/16/2015 High-Dose, Influenza Virus Vacccine-fluzone 65 and older 73959 Given 05/18/2013 DO Not Use Split Influenza Virus Vaccine 76177 Given 07/17/2012 Zostivax 65807 Given 05/14/2011 DO Not Use Split Influenza Virus Vaccine 43908 Given 02/10/2008 Tetanus And Diptheria Adult Preservative Free [id number] >7Yrs Vital Signs Date Vital Result Comment 12/31/2018 2:05pm BP Systolic 116 mmHg BP Diastolic 52 mmHg Heart Rate 64 /min Body Temperature 97.7 F 12/30/2018 9:09am BP Systolic 122 mmHg BP [...] Date Facility Test Result H/L Range Note Laboratory test 12/31/2018 [facility] Sedimentation Rate <pending> finding (607)- - Laboratory test 12/31/2018 [facility] C-Reactive Protein, <pending> finding [address] [place] [address] (607)- - Lyme Antibody, 12/29/2018 [facility] IgG P93 Ab. Absent 1 Line Blot, Serum [address] [place] [address] (504)- - IgG P66 Ab. Absent IgG P58 Ab. Absent IgG P45 Ab. Present Abnormal IgG P41 Ab. Present Abnormal IgG P39 Ab. Absent IgG P30 Ab. Absent IgG P28 Ab. Absent IgG P23 Ab. Absent IgG P18 Ab. Absent Lyme IgG WB Interp. Negative 2 IgM P41 Ab. Present Abnormal IgM P39 Ab. Absent IgM P23 Ab. Absent Lyme IgM WB Interp. Negative 3 CBC Electronic a 12/29/2018 Charlie Pappas([facility]) WBC 4.4 x10^3/UL 4.0- 10.0 RBC 3.81 x10^6/UL Low 3.93-6.00 HGB 11.4 g/dL Low 12.0-17.0 HCT 34 % Low 35-50 MCV 90.0 fL 80.0-95.0 MCH 29.9 pg 25.6-32.2 MCHC 33.2 g/dL 32.2-36.0 RDW-CV 11.9 % 11.6-14.4 PLT 125 x10^3/UL Low 163-400 MPV 10.4 fL 9.4-12.4 Erin# 3.80 x10^3/UL 1.56-6.13 Lymph# 0.33 x10^3/UL Low 1.18-3.74 [place]# 0.19 x10^3/UL Low 0.24-0.82 Eos # 0.0 x10^3/UL 0.0-0.5 Baso # 0.01 x10^3/UL 0.01-0.08 Erin% 86.4 % High 34.0-70.0 Lymph % 7.5 % Low 20.0-52.0 [place]% 4.3 % Low 5.0-12.0 Eos% 0.9 % 0.7-7.0 Baso% 0.2 % 0.1-1.2 Comprehensive Metabolic 03/13/2018 Charlie Pappas([facility]) Sodium 134 mEq/L 134-149 Prof Potassium 4.7 [...] >60 ml/min/1.73m^ >=60 Lipid Profile 03/13/2018 Charlie Pappas([facility]) Cholesterol 200 mg/dL 120- 200 Triglycerides 77 mg/dL 30-200 HDL Cholesterol 59 mg/dL 30-85 LDL (Calculated) 126 CALC 0-129 VLDL Cholesterol 15 mg/dL 0-50 HDL Risk Factor 3.4 CALC 0.0-4.4 CBC Electronic a 03/13/2018 Charlie Pappas([facility]) WBC 6.7 x10^3/UL 4.0- 10.0 RBC 3.77 x10^6/UL Low 3.93-6.00 HGB 11.5 g/dL Low 12.0-17.0 4 HCT 34 % Low 35-50 5 MCV 89.9 fL 80.0-95.0 MCH 30.5 pg 25.6-32.2 MCHC 33.9 g/dL 32.2-36.0 RDW-CV 11.7 % 11.6-14.4 PLT 190 x10^3/UL 163-400 MPV 9.5 fL 9.4-12.4 Erin# 3.47 x10^3/UL 1.56-6.13 Lymph# 2.23 x10^3/UL 1.18-3.74 [place]# 0.53 x10^3/UL 0.24-0.82 Eos # 0.4 x10^3/UL 0.0-0.5 Baso # 0.03 x10^3/UL 0.01-0.08 Erin% 51.8 % 34.0-70.0 Lymph % 33.2 % 20.0-52.0 [place]% 7.9 % 5.0-12.0 Eos% 6.6 % 0.7-7.0 [...] % 0.1 N Comp Metabolic Panel 09/18/2016 [facility] Sodium 128 mmol/L Low 133-145 Potassium 4.9 [...] 68.1 N >60 Egfr 87.6 N >60 6 Lipid Profile (Trig/Chol/HDL) 09/18/2016 [facility] Triglycerides 127 mg/dL N 7 Cholesterol 175 mg/dL N 8 HDL Cholesterol 48.5 mg/dL N 9 LDL Cholesterol 101 mg/dL N 10 Laboratory test 11/16/2015 [facility] Sedimentation Rate 10mm finding (607)- - Complete Blood 11/16/2015 Charlie Pappas(fma) WBC 6.9 3.6-9.6 Count x10^3/UL RBC 4.17 x10^6/UL 3.90-5.70 HGB 13.1 g/dL 12.1-17.2 HCT 38 % 36-50 MCV 90.0 fL 82.2-97.4 MCH 31.3 pg 27.6-33.3 MCHC 34.7 g/dL 33.0-35.5 RDW 12.7 % 11.6-13.7 PLT 236 x10^3/UL 150-400 MPV 7.7 fL 7.4-10.4 Gran # 5.1 x10^3/UL 1.5-7.2 Lymph# 1.4 x10^3/UL 0.7-4.9 [place]# 0.4 x10^3/UL 0.1-0.9 Gran % 72.7 % 42.2-75.2 Lymph % 21.5 % 20.5-51.1 [place]% 5.8 % 1.7-9.3 Laboratory test 11/16/2015 [facility] Immunoglobulin E, 258 High 0-[address] [facility] Total IU/[place] [address] (607)- - Comprehensive 06/29/2015 Charlie Pappas(fma) Sodium 132 Low 134-149 12 Metabolic Prof mEq/L Potassium 4.4 mEq/L 3.6-5.5 Chloride 95 mEq/L 94-112 Carbon Dioxide 25 mEq/L 21-32 Glucose 106 mg/dL High 70-105 13 BUN 20 mg/dL 6-26 Creatinine 0.8 mg/dL [...] >60 ml/min/1.73m^ >=60 Lipid Profile 06/29/2015 Charlie Pappas([facility]) Cholesterol 226 mg/dL High 120-200 Triglycerides 92 mg/dL 30-200 HDL Cholesterol 65 mg/dL 30-85 LDL (Calculated) 143 CALC High 0-129 VLDL Cholesterol 18 mg/dL 0-50 HDL Risk Factor 3.5 CALC 0.0-4.4 Complete Blood Count 06/29/2015 Charlie Pappas([facility]) WBC 7.2 x10^3/UL 3.6 -9.6 RBC 4.05 x10^6/UL 3.90-5.70 HGB 12.6 g/dL 12.1-17.2 HCT 37 % 36-50 MCV 91.0 fL 82.2-97.4 MCH 31.0 pg 27.6-33.3 MCHC 33.9 g/dL 33.0-35.5 RDW 12.4 % 11.6-13.7 PLT 243 x10^3/UL 150-400 MPV 7.6 fL 7.4-10.4 Gran # 4.5 x10^3/UL 1.5-7.2 Lymph# 2.4 x10^3/UL 0.7-4.9 [place]# 0.3 x10^3/UL 0.1-0.9 Gran % 60.0 % 42.2-75.2 Lymph % 34.5 % 20.5-51.1 [place]% 5.5 % 1.7-9.3 Comprehensive Metabolic 11/27/2012 Guerra Elyse(fma) Albumin 4.7 g/dL 3.8-5.5 Prof Alk. Phos. [...] (Calculated) 16 mg/dL 0-50 Laboratory test 11/06/2011 [facility] Medicine Hematocrit 40 % 36.1 - finding [...] 23.4 Calc 8.0-36.0 Lipid Profile 05/18/2011 Guerra Elyse([facility]) Cholesterol 232 mg/dL High 120-200 HDL 64 mg/dL 30-85 Triglycerides 78 mg/dL 30-200 HDL Risk Factor 3.6 CALC 0.0-4.0 LDL (Calculated) 152 CALC High 0-129 VLDL (Calculated) 16 mg/dL 0-50 Laboratory test finding 05/18/2011 Guerra Elyse([facility]) B12 659 pg/mL 230 -1050 Comprehensive Metabolic 03/13/2010 Charlie Elyse([facility]) Albumin 4.5 g/dL 3.8-5.5 Prof Alk. Phos. 64 U/L 30-110 Alt (SGPT) 24 U/L 7-35 Ast (Sgot) 34 U/L 5-34 BUN 19 mg/dL 6-26 Calcium 10.2 mg/dL 8.6-10.2 Chloride 88 mEq/L Low 94-112 14 Creatinine 0.8 mg/dL 0.6-1.4 Carbon Dioxide 29 mEq/L 21-32 Glucose 97 mg/dL 70-105 Sodium 129 mEq/L Low 134-149 15 Total Bilirubin 0.9 mg/dL 0.2-1.3 Total Protein 6.7 g/dL 6.3-8.1 Potassium 4.0 mEq/L 3.6-5.5 Globulin 2.2 g/dL 2.0-4.8 A/G Ratio 2.1 Calc 0.6-2.2 BUN/Creat Ratio 24.0 Calc 8.0-36.0 Lipid Profile 03/13/2010 Guerra Elyse(a) Cholesterol 225 mg/dL High 120-200 HDL 53 mg/dL 30-85 Triglycerides 121 mg/dL 30-200 HDL Risk Factor 4.2 CALC 4.2-7.0 LDL (Calculated) 147 CALC High 0-129 VLDL (Calculated) 24 mg/dL 0-50 CBC (a) 03/13/2010 [facility] WBC 8.7 3.6-9.6 (607)- - RBC 4.43 3.90-5.70 Hemoglobin (Fma/CMC/CTX) 13.3 g/dL 12.1 - 17.2 Hematocrit (Fma/CMC/CTX) 39.3 % 36.1 - 50.3 Mean Corpuscular Vol 88.7 82.2-97.4 Mean Corpuscular Hemaglobin 30.0 27.6-33.3 Mean Corpuscular Hemo Concen 33.8 33.0-36.0 Platelets 228 10^3/ul 150-400 Lymph% 20.8 20.5-51.1 Mixed% 6.0 Neutrophils % 73.2 RDW 11.6 11.6-13.7 Mean Platelet Volume 11.3 High 7.4-10.4 Comprehensive Metabolic 02/23/2009 Charlie Pappas([facility]) Albumin 4.6 g/dL 3.8-5.5 16 Prof Alk. Phos. 71 U/L 30-110 Alt [...] Ratio 20.7 Calc 8.0-36.0 Lipid Profile 02/23/2009 Charlie Pappas([facility]) Cholesterol 222 mg/dL High 120-200 HDL 74 mg/dL 30-85 Triglycerides 120 mg/dL 30-200 HDL Risk Factor 3.0 CALC Low 4.2-7.0 LDL (Calculated) 124 CALC 0-129 VLDL (Calculated) 24 mg/dL 0-50 Complete Blood Count 02/23/2009 Charlie Pappas(fma) WBC 6.9 x10^3/uL 3.6 -9.6 Gran# 4.9 [...] 11.6 % 11.6-13.7 Laboratory test 02/23/2009 Charlie Pappas([facility]) TSH 1.37 mIU/L 0.50-6.00 finding Comprehensive 02/10/2008 Charlie Elyse([facility]) Albumin 4.4 g/dL 3.8-5.5 Metabolic Prof Alk. Phos. 75 U/L 30-110 Alt (SGPT) 29 U/L 7-35 Ast (Sgot) 25 U/L 5-34 BUN 14 mg/dL 6-26 Calcium 9.8 mg/dL 8.6-10.2 Chloride 94 mEq/L 94-112 Creatinine 0.9 mg/dL 0.6-1.4 Carbon Dioxide 28 mEq/L 21-32 Glucose 101 mg/dL 70-105 Sodium 131 mEq/L Low 134-149 17 Total Bilirubin 0.8 mg/dL 0.2-1.3 Total Protein 6.8 g/dL 6.3-8.1 Potassium 4.2 mEq/L 3.6-5.5 Globulin 2.4 g/dL 2.0-4.8 A/G Ratio 1.8 Calc 0.6-2.2 BUN/Creat Ratio 15.0 Calc 8.0-36.0 Lipid Profile 02/10/2008 Charlie Pappas([facility]) Cholesterol 202 mg/dL High 120-200 18 HDL 59 mg/dL 30-85 Triglycerides 66 mg/dL 30-200 19 HDL Risk Factor 3.4 CALC Low 4.2-7.0 LDL (Calculated) 130 CALC High 0-129 VLDL (Calculated) 13 mg/dL 0-50 Complete Blood Count 02/10/2008 Guerra Elyse([facility]) WBC 5.3 x10^3/u 3.6- 9.6 Gran# 3.5 [...] 3.90-5.70 RDW 11.8 % 11.6-13.7 Lipid 10/08/2006 [facility] Cholesterol 236 mg/dL High 120-200 Panel-ALL Lab (607)- - (Fma/CMC/[facility]) Companies HDL-Chol 56 mg/dL 30-85 Triglyceride 125 mg/dL 30-200 LDL/HDL Chol. Ratio (F/C/CTX) - Chol./HDL Ratio (Fma/CMC/CTX) - Low 30-85 LDL, Calculated ([facility]) 155 mg/dL High 0-129 HDL Risk Factor (a) 4.2 CALC 4.2-7.0 Comp Metabolic 01/18/2006 [facility] Medicine Glucose, Serum 102 mg/dL 70- 105 ([facility]) Female (607)- - (Fma/CMC/CTX) BUN (Fma/CMC/Centrex) 15 mg/dL 6-26 Creatinine, Serum 0.8 mg/dL 0.6-1.4 BUN/Creatinin Ratio 18.0 8.0-36 Sodium 139 134-149 Potassium 4.4 3.6-5.5 Chloride 98 mEq/L 94-112 Co2 26 21-32 Calcium (Fma/CMC/[facility]rex) 9.9 mg/dL 8.6-10.2 Total Protein 7.5 g/dL 6.3-8.1 Albumin (Fma/CMCC/[facility]rex) 4.9 3.8-5.5 Globulin 2.6 2.0-4.8 A/G Ratio (A/G Ratio) 1.9 0.6-2.2 Alkaline Phosphatase (F/C/CTX) 88 U/L 30-110 Alt (SGPT) Female ([facility]) 20 7-35 Ast Sgot 19 U/L 5-34 Bilirubin, Total 0.8 mg/dL 0.2-1.3 Lipid Profile 01/18/2006 [facility] Cholesterol 250 mg/dL High 120- 200 ([facility]) Female (607)- - (Fma/CMC/[facility]) Triglyceride 115 mg/dL 30-200 HDL-Chol 58 mg/dL 30-85 LDL, Calculated (a/CMC) 168 CALC High 0-129 VLDL 23 0-50 HDL Risk Factor ([facility]) 4.3 CALC 4.2-7.0 Comp Metabolic 01/02/2005 [facility] Glucose, Serum 94 mg/dL 70- 105 ([facility]) Female (607)- - (Fma/CMC/CTX) BUN (a/CMC/[facility]) 18 mg/dL 6-26 Creatinine, Serum 0.7 mg/dL 0.6-1.4 BUN/Creatinin Ratio 24.1 8.0-36 Sodium 143 134-149 Potassium 4.7 3.6-5.5 Chloride 103 mEq/L 94-112 Co2 28 21-32 Calcium (Fma/CMC/[facility]) 9.8 mg/dL 8.6-10.2 Total Protein 7.0 g/dL 6.3-8.1 Albumin (Fma/CMCC/[facility]rex) 4.3 3.8-5.5 Globulin 2.6 2.0-4.8 A/G Ratio (A/G Ratio) 1.6 0.6-2.2 Alkaline Phosphatase (F/C/CTX) 74 U/L 22-95 Alt (SGPT) (Fma/CMC/[facility]) 19 7-35 Ast (Sgot) (a/[facility]) 20 U/mL 5-34 Bilirubin, Total 1.0 mg/dL 0.2-1.3 Lipid Profile ([facility]) 01/02/2005 Family [facility] Cholesterol 224 mg/dL High 120-200 Female (607)- - Triglyceride 70 mg/dL 30-200 HDL-Chol 55 mg/dL 30-85 LDL, Calculated ([facility]) 154 CALC High 0-129 LDL, Direct - mg/dL 0-130 VLDL 14 0-50 HDL Risk Factor (a) 4.0 CALC Low 4.2-7.0 CBC Electronic ([facility]) 01/02/2005 [facility] WBC 6.1 3.6-9.6 (607)- - Lymphocytes 27.2 % 20.5 - 51.1 Monocytes 5.1 % 1.7-9.3 Granulocytes 67.7 % 42.2 - 75.2 Lymphocytes 1.7 10^3/uL 0.7 - 4.9 Monocytes 0.3 10^3/uL 0.1 - 0.9 Granulocytes 4.1 10^3/uL 1.5 - 7.2 RBC 4.34 3.90-5.70 Hemoglobin (a/[facility]/CTX) 13.3 g/dL 12.1 - 17.2 Hematocrit (a/[facility]/CTX) 39.0 % 36.1 - 50.3 Mean Corpuscular Vol 89.8 82.2-97.4 Mean Corpuscular Hemaglobin 30.5 27.6-33.3 Mean Corpuscular Hemo Concen 34.0 33.0-36.0 RDW 11.9 11.6-13.7 Platelets 226. 10^3/ul 150-400 Mean Platelet Volume 7.5 7.4-10.4 Laboratory test finding 12/11/2002 [facility] LDL, Direct 81 mg/dL 0-130 (607)- - TSH 1.71 uIU/ml 0.5-6.0 Lipid Profile ([facility]) 12/11/2002 [facility] Cholesterol 187 mg/dL 120 -200 (607)- - Triglyceride 360 mg/dL High 30-200 HDL-Chol 45 30-85 LDL-Calculated ([facility]) INVALID CALC 0-129 VLDL 72 High 0-50 HDL Risk Factor ([facility]) 4.1 CALC Low 4.2-7.0 Comp Metabolic 12/11/2002 [facility] Glucose, Serum 110 mg/dL 70- 118 ([facility]) (607)- - (Fma/CMC/CTX) BUN (a/CMC/[facility]) 18 mg/dL 7-26 Creatinine (a/CMC/CTX) 0.7 mg/dL 0.6-1.4 BUN/Creatinin Ratio 24.6 8.0-36 Sodium 145 134-149 Potassium 4.2 3.6-5.5 Chloride 106 mEq/L 94-112 Co2 24 21-32 Calcium (a/CMC/[facility]) 9.6 mg/dL 8.6-10.0 Total Protein 6.9 g/dL 6.3-8.1 Albumin (a/[facility]CC/[facility]) 4.3 3.8-5.5 Globulin 2.6 2.0-4.8 A/G Ratio (a/CMC/[facility]) 1.7 0.6-2.2 Alkaline Phosphatase (F/C/CTX) 68 U/L 30-110 Alt (SGPT) 17 10-40 Ast (Sgot) (a/CMC/[facility]) 19 U/mL 5-34 Bilirubin, Total 0.6 mg/dL 0.2-1.3 CBC Electronic ([facility]) 12/11/2002 [facility] WBC 6.6 3.6-9.6 (607)- - Lymphocytes 24.0 % 20.5 - 51.1 Monocytes 5.3 % 1.7-9.3 Granulocytes 70.7 % 42.2 - 75.2 Lymphocytes 1.6 10^3/uL 0.7 - 4.9 Monocytes 0.3 10^3/uL 0.1 - 0.9 Granulocytes 4.7 10^3/uL 1.5 - 7.2 RBC 4.48 3.90-5.70 Hemoglobin (a/CMC/CTX) 13.9 g/dL 12.1 - 17.2 Hematocrit (Fma/CMC/CTX) 41.1 % 36.1 - 50.3 Mean Corpuscular Vol 91.7 82.2-97.4 Mean Corpuscular Hemaglobin 31.0 27.6-33.3 Mean Corpuscular Hemo Concen 33.8 33.0-34.8 RDW 11.5 Low 11.6-13.7 Platelets 195. 10^3/ul 150-400 Mean Platelet Volume 8.3 7.4-10.4 Occult Blood (3) 06/11/2000 [facility] Occult Blood #1 NEG (607)- - Occult Blood #2 NEG 05/21/00 Occult Blood #3 NEG 05/25/00 Laboratory test finding 04/19/1999 TSH 2.8 IU/mL 0.4-5.5 CBC With Diff ([facility]) 04/19/1999 WBC 6.1 thous/L 3.8-10.8 RBC 4.15 mill/L 3.9-5.20 Hemoglobin 13.1 g/dL 12.0-15.6 Hematocrit 39.7 % 35-46 Mean Corpuscular Vol 95.6 FL 80.0-100.0 Mean Corpuscular Hemaglobin 31.7 pg 27.0-33.0 Mean Corpuscular Hemo Concen 33.2 g/dL 32.0-36.0 RDW 13.0 % 9.0-15.0 Platelets 183 thous/L 130-400 Abs Neutrophils 3782 thous/L 4347-0463 Neutrophils 62 % Abs Lymphs 1830 cells/L 850-4100 Lymphocytes 30 % Abs Mononuclear 305 cells/L 200-1100 Abs Eosinophils 183 cells/L 50-550 Eosinophil 3 % Abs Basophils 0 cells/L 0-200 Basophil% 0 % Comp Metabolic ([facility]) 04/19/1999 Glucose 100 mg/dL 70-115 BUN 10 [...] U/L 20-125 Ast (Sgot) 16 U/L 0-42 Lipid Panel [facility] 04/19/1999 Triglyceride 170 mg/dL <200 Cholesterol 185 mg/dL <200 HDL-Chol 51 mg/dL >34 LDL-Calculated 100 mg/dL 0-130 Cholesterol / HDL Ratio 3.63 (CALC) <4.45 1 2 sst 2 Positive: 5 of the following Borrelia-specific bands: 18,23,28,30,39,41,45,58, 66, and 93. Negative: No bands or banding patterns which do not meet positive criteria. 3 Note: An equivocal or positive EIA result followed by a negative Western Blot result is considered NEGATIVE. An equivocal or positive EIA result followed by a positive Western Blot is considered POSITIVE by the CDC. Positive: 2 of the following bands: 23,39 or 41 Negative: No bands or banding patterns which do not meet positive criteria. Criteria for positivity are those recommended by CDC/ASTPHLD. p23=Osp C, c53=dwvturrqj Note: Sera from individuals with the following may cross react in the Lyme Western Blot assays: other spirochetal diseases (periodontal disease, leptospirosis, relapsing fever, yaws, and pinta); connective autoimmune (Rheumatoid Arthritis and Systemic Lupus Erythematosus and also individuals with Antinuclear Antibody); other infections ([place] Spotted Fever; Don-Frank[place] Virus, and Cytomegalovirus). 4 RESULTS VERIFIED BY REPEAT ANALYSIS 5 RESULTS VERIFIED BY REPEAT ANALYSIS 6 Because ethnic data is not always readily [...] 15-29 5 Kidney failure <15 (or dialysis) 7 Desirable <150 Borderline high 150-199 High 200-499 Very High >500 8 Desirable <200 Borderline high 200-239 High >239 9 Low <40 Desirable: 40-60 High: >60 10 Desirable: <100 mg/dL Near Optimal: 100-129 mg/dL Borderline High: 130-159 mg/dL High: 160-189 mg/dL Very High: >189 mg/dL 11 1 sst 12 RESULTS VERIFIED BY REPEAT ANALYSIS 13 RESULTS VERIFIED BY REPEAT ANALYSIS 14 RESULT RECKD' 15 RESULT FRANCINE'D 16 FASTING 17 RESULT FRANCINE'D 18 RESULT FRANCINE'D 19 RESULT FRANCINE'D Procedures Date Code Description Status 02/26/2018 [id number] Mammogram Completed 07/20/2017 60962 Injection Subcutaneous Or Intramuscular Completed 02/06/2017 [id number] Mammogram Completed 10/01/2016 75213 Pulse Oximetry Completed 09/27/2016 49378 Nebulizer Treatment Completed 02/01/2016 [id number] Mammogram Completed 10/17/2015 34876 Pulse Oximetry Completed 10/17/2015 88897 Cintia flow vital capacity, total (seperate procedure) Completed 10/19/2014 [id number] Mammogram Completed 06/18/2012 [id number] Mammogram Completed 11/06/2011 74700 Finger Or Heel Stick Completed 06/13/2011 [id number] Mammogram Completed 06/12/2010 [id number] Mammogram Completed 02/09/2010 66626 Electrocardiogram Complete Completed 06/08/2009 [id number] Mammogram Completed 08/24/2008 87202 Electrocardiogram Complete Completed 06/07/2008 [id number] Mammogram Completed 06/04/2007 [id number] Mammogram Completed 11/19/2006 [id number] Colonoscopy Completed 11/12/2006 [id number] Bone Mineral Density Test Completed 04/19/2006 [id number] Mammogram Completed 05/14/2000 63395 Electrocardiogram Complete Completed Encounters Type Date Location [...] organism Office Visit 09/27/2016 8:15a Main Office Lisa Vasquez, HUMPHREY R05 Cough J20.9 Acute bronchitis, unspecified Office Visit 09/17/2016 9:20a Main Office Levi Chauhan Essential ( primary) Kellie Bliss hypertension J06.9 Acute upper respiratory infection, unspecified F41.9 Anxiety disorder, unspecified Office Visit 02/02/2016 1:00p [facility] Sussy Blackwelligne, N63 Unspecified lump Afnp-C in breast N64.59 Other signs and symptoms in breast Office Visit 01/24/2016 2:30p Main Office Sussysarah Mart, N63 Unspecified lump Afnp-C in breast Office Visit 11/16/2015 9:10a Main Office Levi Hollingsworth R05 Cough Kellie Bliss Office Visit 10/17/2015 3:00p Main Office Levi Hollingsworth R06.02 Shortness of Kellie Bilss breath Office Visit 06/27/2015 1:40p Main Office [...] [facility] Maryam Irene 536.8 Stomach Dyspepsia FROG OR [employer] & Other Spec Disorders Of Function Office Visit 02/01/2010 8:00a [facility] Renzo Singh 729.5 Pain In Limb Kellie Deluna Office Visit 02/16/2009 4:00p Main Office Levi Hollingsworth 401.9 Hypertension Kellie Bliss Unspec 536.8 Stomach Dyspepsia & Other Spec Disorders Of Function 272.4 Hyperlipidemia Other Unspec Office Visit 12/13/2008 11:30a [facility] Beau Singh 726.19 Shoulder Disorders Kellie Zaragoza Other Spec Office Visit 08/24/2008 1:00p [facility] Levi Hollingsworth 536.8 Stomach Dyspepsia Kellie Bliss & Other Spec Disorders Of Function Office Visit 02/10/2008 8:00a [facility] Levi Hollingsworth 401.9 Hypertension Kellie Bliss Unspec V06.5 Tetanus Diphtheria (DT) Office Visit 10/08/2006 9:00a [facility] Levi Hollingsworth 401.9 Hypertension Kellie Bliss [...] For Lipoid Disorders Office Visit 03/17/2004 2:00p [facility] Sussy Mart, 466.0 Bronchitis Acute Afnp-C Office Visit 01/26/2003 1:40p [facility] Office Levi Hollingsworth 611.72 Lump Or Mass Dago Bliss. Breast Office Visit 12/29/2002 10:20a [facility] Office Levi Hollingsworth V70.0 Examination Kellie Bliss General Medical Routine AT Health Care Facility Office Visit 12/04/2002 11:30a [facility] Office [place], V65.5 Person W/ Feared Afnp-C Complaint In Whom No Diagnosis Was Made Office Visit 09/10/2000 1:20p [facility] Office Levi Bliss M.D. Office Visit 05/14/2000 9:20a [facility] Office Levi Bliss M.D. Plan of Treatment Future Appointment(s):01/06/2019 2:30 pm - MARIBELL Bowman at [facility] [place]0412/31/2018 - Jacque Vazquez, PAL03.311 Cellulitis of abdominal wallComments:Continue Doxycycline for 1 more week at least. Continue Zofran as needed. Continue Claritin.Follow up in 1 week or sooner if needed. Please call with any worsening headache, pain, rash becomes more red.S30.861D Insect bite ( nonvenomous) of abdominal wall, subsequent encoComments:Still awaiting lab results of lyme.R51 HeadacheComments:Can take ibuprofen or tylenol . Drink lots of fluids, eat nutritious foods. Obtain labs to check your inflammatory markers.AllComments:PCMHMedication Management Patient Understands medications he's taking? Yes Are there Barriers to Adherence? No Has the patient been asked about herbal supplements and therapies, and OTC meds? Yes Care Plan1. Patient has been queried about patient's goals/preferences and functional/lifestyle goals at relevant visits. Yes If relevant, describe: N/A2. Treatment goals as explained to the patient: above3. Are there barriers to meeting treatment goals? No If Yes, please describe:4. Self-Management goals as described to the patient: Yes As always, we strongly encourage a healthy diet and making physical activity a part of your every day life. If you have questions about how or where to start, please contact the office.
--- OUTSIDE RECORDS SUMMARY | 2019-01-02 17:22 | XMS REPORT | Continuity of Care Document ---
:1940 External Reference #:[id number] Author Name MARIBELL Bowman Address [address] [facility] [place] [address] Care Team Providers Name Role Phone Levi Bliss MD Care Team Information Maxillofacial Pathology Unavailable Levi Bliss MD Primary Care Physician Unavailable Payers Date Identification Numbers Payment Provider Subscriber Effective: 2007 Policy Number: [id number] [place] Amber Haider PayID: [id number] [address] [facility] [place] [address] Effective: 2012 Policy Number: [id number] [facility] Amber Haider Options PayID: [id number] [address] [place] [address] Problems Active Problems Provider Date Essential hypertension [...] ject sq 1units Linda Guillermo 06/27/2012 - 35027Naf/0.65ML Kellie Husain 11/19/2012 Solution Rec pune Lisinopril [...] Medicine 04/07/1999 - [facility]mg [facility] 05/14/2000 [place] Zithromax 2 Tabs Day 1 6units Bacilio [...] CPT Code Status Date Vaccine Lot # [id number] Given 06/09/2018 Pneumococcal Immunization 25802 Given 04/10/2018 High-Dose, Influenza Virus Vacccine-fluzone 65 and older 91462 Given 05/16/2015 High-Dose, Influenza Virus Vacccine-fluzone 65 and older 35737 Given 05/18/2013 DO Not Use Split Influenza Virus Vaccine 81707 Given 07/17/2012 Zostivax 38355 Given 05/14/2011 DO Not Use Split Influenza Virus Vaccine 77171 Given 02/10/2008 Tetanus And Diptheria Adult Preservative Free E0059SH >7Yrs Vital Signs Date Vital Result Comment 12/29/2018 8:34am BP Systolic 128 mmHg BP [...] Test Result H/L Range Note CBC Electronic Fma 12/29/2018 [place](a) WBC 4.4 x10^3/UL 4.0- 10.0 RBC 3.81 x10^6/UL Low 3.93-6.00 HGB 11.4 g/dL Low 12.0-17.0 HCT 34 % Low 35-50 MCV 90.0 fL 80.0-95.0 MCH 29.9 pg 25.6-32.2 MCHC 33.2 g/dL 32.2-36.0 RDW-CV 11.9 % 11.6-14.4 PLT 125 x10^3/UL Low 163-400 MPV 10.4 fL 9.4-12.4 Erin# 3.80 x10^3/UL 1.56-6.13 Lymph# 0.33 x10^3/UL Low 1.18-3.74 [place]# 0.19 x10^3/UL Low 0.24-0.82 Eos # 0.0 x10^3/UL 0.0-0.5 Baso # 0.01 x10^3/UL 0.01-0.08 Erin% 86.4 % High 34.0-70.0 Lymph % 7.5 % Low 20.0-52.0 [place]% 4.3 % Low 5.0-12.0 Eos% 0.9 % 0.7-7.0 Baso% 0.2 % 0.1-1.2 Comprehensive Metabolic 03/13/2018 [place](fma) Sodium 134 mEq/L 134-149 Prof Potassium 4.7 [...] GFR >60 ml/min/1.73m^ >=60 Lipid Profile 03/13/2018 [place](fma) Cholesterol 200 mg/dL 120- 200 Triglycerides 77 mg/dL 30-200 HDL Cholesterol 59 mg/dL 30-85 LDL (Calculated) 126 CALC 0-129 VLDL Cholesterol 15 mg/dL 0-50 HDL Risk Factor 3.4 CALC 0.0-4.4 CBC Electronic Fma 03/13/2018 [place](fma) WBC 6.7 x10^3/UL 4.0- 10.0 RBC 3.77 x10^6/UL Low 3.93-6.00 HGB 11.5 g/dL Low 12.0-17.0 1 HCT 34 % Low 35-50 2 MCV 89.9 fL 80.0-95.0 MCH 30.5 pg 25.6-32.2 MCHC 33.9 g/dL 32.2-36.0 RDW-CV 11.7 % 11.6-14.4 PLT 190 x10^3/UL 163-400 MPV 9.5 fL 9.4-12.4 Erin# 3.47 x10^3/UL 1.56-6.13 Lymph# 2.23 x10^3/UL 1.18-3.74 [place]# 0.53 x10^3/UL 0.24-0.82 Eos # 0.4 x10^3/UL 0.0-0.5 Baso # 0.03 x10^3/UL 0.01-0.08 Erin% 51.8 % 34.0-70.0 Lymph % 33.2 % 20.0-52.0 [place]% 7.9 % 5.0-12.0 Eos% 6.6 % 0.7-7.0 Baso% 0.4 % 0.1-1.2 CBC Auto Diff 09/18/2016 [facility] White Blood Count 10.8 10^3/uL N 3.5-10.8 [...] N >60 3 Lipid Profile (Trig/Chol/HDL) 09/18/2016 [facility] Triglycerides 127 mg/dL N 4 Cholesterol 175 [...] 5.1 x10^3/UL 1.5-7.2 Lymph# 1.4 x10^3/UL 0.7-4.9 [place]# 0.4 x10^3/UL 0.1-0.9 Gran % 72.7 % 42.2-75.2 Lymph % 21.5 % 20.5-51.1 [place]% 5.8 % 1.7-9.3 Laboratory test 11/16/2015 [facility] Immunoglobulin E, 258 IU/mL High 0- [address] [place] [address] (607)- - Comprehensive 06/29/2015 Charlie Pappas(fma) Sodium 132 mEq/L Low 134- 149 9 [...] >60 ml/min/1.73m^ >=60 Lipid Profile 06/29/2015 Charlie Pappas(fma) Cholesterol 226 mg/dL High 120-200 Triglycerides 92 mg/dL 30-200 HDL Cholesterol 65 mg/dL 30-85 LDL (Calculated) 143 CALC High 0-129 VLDL Cholesterol 18 mg/dL 0-50 HDL Risk Factor 3.5 CALC 0.0-4.4 Complete Blood Count 06/29/2015 Charlie Pappas([facility]) WBC 7.2 x10^3/UL 3.6 -9.6 RBC 4.05 x10^6/UL 3.90-5.70 HGB 12.6 g/dL 12.1-17.2 HCT 37 % 36-50 MCV 91.0 fL 82.2-97.4 MCH 31.0 pg 27.6-33.3 MCHC 33.9 g/dL 33.0-35.5 RDW 12.4 % 11.6-13.7 PLT 243 x10^3/UL 150-400 MPV 7.6 fL 7.4-10.4 Gran # 4.5 x10^3/UL 1.5-7.2 Lymph# 2.4 x10^3/UL 0.7-4.9 [place]# 0.3 x10^3/UL 0.1-0.9 Gran % 60.0 % 42.2-75.2 Lymph % 34.5 % 20.5-51.1 [place]% 5.5 % 1.7-9.3 Comprehensive Metabolic 11/27/2012 Charlie Pappas([facility]) Albumin 4.7 g/dL 3.8-5.5 [...] Ratio 16.3 Calc 8.0-36.0 Lipid Profile 11/27/2012 Charlie Pappas([facility]) Cholesterol 222 mg/dL High 120-200 HDL 57 mg/dL 30-85 Triglycerides 81 mg/dL 30-200 HDL Risk Factor 3.9 CALC 0.0-4.4 LDL (Calculated) 149 CALC High 0-129 VLDL (Calculated) 16 mg/dL 0-50 Laboratory test 11/06/2011 [facility] Hematocrit 40 % 36.1 - finding (607)- - (Fma/CMC/CTX) 50.3 Comprehensive 05/18/2011 [place](a) Albumin 4.7 g/dL 3.8-5.5 Metabolic Prof Alk. [...] 23.4 Calc 8.0-36.0 Lipid Profile 05/18/2011 [place](a) Cholesterol 232 mg/dL High 120-200 HDL 64 mg/dL 30-85 Triglycerides 78 mg/dL 30-200 HDL Risk Factor 3.6 CALC 0.0-4.0 LDL (Calculated) 152 CALC High 0-129 VLDL (Calculated) 16 mg/dL 0-50 Laboratory test finding 05/18/2011 [place](a) B12 659 pg/mL 230 -1050 Comprehensive Metabolic 03/13/2010 [place](a) Albumin 4.5 g/dL 3.8-5.5 Prof Alk. Phos. [...] 0-129 VLDL (Calculated) 24 mg/dL 0-50 CBC ([facility]) 03/13/2010 [facility] Medicine WBC 8.7 3.6-9.6 (607)- - [...] 11.3 High 7.4-10.4 Comprehensive Metabolic 02/23/2009 [place](a) Albumin 4.6 g/dL 3.8-5.5 13 Prof Alk. [...] 20.7 Calc 8.0-36.0 Lipid Profile 02/23/2009 [facility]se([facility]) Cholesterol 222 mg/dL High 120-200 HDL 74 mg/dL 30-85 Triglycerides 120 mg/dL 30-200 HDL Risk Factor 3.0 CALC Low 4.2-7.0 LDL (Calculated) 124 CALC 0-129 VLDL (Calculated) 24 mg/dL 0-50 Complete Blood Count 02/23/2009 Charlie Pappas([facility]) WBC 6.9 x10^3/uL 3.6 -9.6 Gran# 4.9 [...] 11.6 % 11.6-13.7 Laboratory test 02/23/2009 Charlie Pappas([facility]) TSH 1.37 mIU/L 0.50-6.00 finding Comprehensive 02/10/2008 Charlie Pappas([facility]) Albumin 4.4 g/dL 3.8-5.5 Metabolic Prof Alk. [...] 15.0 Calc 8.0-36.0 Lipid Profile 02/10/2008 Charlie Pappas([facility]) Cholesterol 202 mg/dL High 120-200 15 HDL 59 mg/dL 30-85 Triglycerides 66 mg/dL 30-200 16 HDL Risk Factor 3.4 CALC Low 4.2-7.0 LDL (Calculated) 130 CALC High 0-129 VLDL (Calculated) 13 mg/dL 0-50 Complete Blood Count 02/10/2008 Charlie Pappas([facility]) WBC 5.3 x10^3/u 3.6- [...] 3.90-5.70 RDW 11.8 % 11.6-13.7 Lipid 10/08/2006 [facility] Cholesterol 236 mg/dL High 120-200 Panel-ALL Lab (607)- - (Fma/CMC/[facility]) Companies HDL-Chol 56 mg/dL 30-85 Triglyceride 125 mg/dL 30-200 LDL/HDL Chol. Ratio (F/C/CTX) - Chol./HDL Ratio (Fma/CMC/CTX) - Low 30-85 LDL, Calculated ([facility]) 155 mg/dL High 0-129 HDL Risk Factor (Fma) 4.2 CALC 4.2-7.0 Lipid Profile 01/18/2006 [facility] Cholesterol 250 mg/dL High 120- 200 (a) Female (607)- - (Fma/CMC/[facility]) Triglyceride 115 mg/dL 30-200 HDL-Chol 58 mg/dL 30-85 LDL, Calculated (Fma/CMC) 168 CALC High 0-129 VLDL 23 0-50 HDL Risk Factor (a) 4.3 CALC 4.2-7.0 Comp Metabolic 01/18/2006 [facility] Glucose, Serum 102 mg/dL 70- 105 (a) Female (607)- - (Fma/CMC/CTX) BUN (Fma/CMC/[facility]) 15 mg/dL 6-26 Creatinine, Serum 0.8 mg/dL 0.6-1.4 BUN/Creatinin Ratio 18.0 8.0-36 Sodium 139 134-149 Potassium 4.4 3.6-5.5 Chloride 98 mEq/L 94-112 Co2 26 21-32 Calcium (a/CMC/[facility]) 9.9 mg/dL 8.6-10.2 Total Protein 7.5 g/dL 6.3-8.1 Albumin (a/CMCC/[facility]) 4.9 3.8-5.5 Globulin 2.6 2.0-4.8 A/G Ratio (A/G Ratio) 1.9 0.6-2.2 Alkaline Phosphatase (F/C/CTX) 88 U/L 30-110 Alt (SGPT) Female (a) 20 7-35 Ast Sgot 19 U/L 5-34 Bilirubin, Total 0.8 mg/dL 0.2-1.3 CBC Electronic ([facility]) 01/02/2005 [facility] WBC 6.1 3.6-9.6 (607)- - Lymphocytes 27.2 % 20.5 - 51.1 Monocytes 5.1 % 1.7-9.3 Granulocytes 67.7 % 42.2 - 75.2 Lymphocytes 1.7 10^3/uL 0.7 - 4.9 Monocytes 0.3 10^3/uL 0.1 - 0.9 Granulocytes 4.1 10^3/uL 1.5 - 7.2 RBC 4.34 3.90-5.70 Hemoglobin (Fma/CMC/CTX) 13.3 g/dL 12.1 - 17.2 Hematocrit (Fma/CMC/CTX) 39.0 % 36.1 - 50.3 Mean Corpuscular Vol 89.8 82.2-97.4 Mean Corpuscular Hemaglobin 30.5 27.6-33.3 Mean Corpuscular Hemo Concen 34.0 33.0-36.0 RDW 11.9 11.6-13.7 Platelets 226. 10^3/ul 150-400 Mean Platelet Volume 7.5 7.4-10.4 Lipid Profile ([facility]) 01/02/2005 [facility] Cholesterol 224 mg/dL High 120-200 Female (607)- - Triglyceride 70 mg/dL 30-200 HDL-Chol 55 mg/dL 30-85 LDL, Calculated (a/CMC) 154 CALC High 0-129 LDL, Direct - mg/dL 0-130 VLDL 14 0-50 HDL Risk Factor ([facility]) 4.0 CALC Low 4.2-7.0 Comp Metabolic 01/02/2005 [facility] Glucose, Serum 94 mg/dL 70- 105 ([facility]) Female (607)- - (Fma/CMC/CTX) BUN (a/CMC/[facility]) 18 [...] Bilirubin, Total 1.0 mg/dL 0.2-1.3 Lipid Profile ([facility]) 12/11/2002 [facility] Cholesterol 187 mg/dL 120 -200 (607)- - Triglyceride 360 mg/dL High 30-200 HDL-Chol 45 30-85 LDL-Calculated ([facility]) INVALID CALC 0-129 VLDL 72 High 0-50 HDL Risk Factor ([facility]) 4.1 CALC Low 4.2-7.0 Laboratory test finding 12/11/2002 [facility] LDL, Direct 81 mg/dL 0-130 (607)- - TSH 1.71 uIU/ml 0.5-6.0 Comp Metabolic 12/11/2002 [facility] Glucose, Serum 110 mg/dL 70- 118 ([facility]) (607)- - (Fma/CMC/CTX) BUN (a/CMC/[facility]) 18 mg/dL 7-26 Creatinine (a/CMC/CTX) 0.7 mg/dL 0.6-1.4 BUN/Creatinin Ratio 24.6 8.0-36 Sodium 145 134-149 Potassium 4.2 3.6-5.5 Chloride 106 mEq/L 94-112 Co2 24 21-32 Calcium (a/CMC/[facility]) 9.6 mg/dL 8.6-10.0 Total Protein 6.9 g/dL 6.3-8.1 Albumin ([facility]) 4.3 3.8-5.5 Globulin 2.6 2.0-4.8 A/G Ratio (a/CMC/[facility]) 1.7 0.6-2.2 Alkaline Phosphatase (F/C/CTX) 68 U/L 30-110 Alt (SGPT) 17 10-40 Ast (Sgot) (a/CMC/[facility]) 19 U/mL 5-34 Bilirubin, Total 0.6 mg/dL 0.2-1.3 CBC Electronic (a) 12/11/2002 [facility] WBC 6.6 3.6-9.6 (607)- - Lymphocytes 24.0 % 20.5 - 51.1 Monocytes 5.3 % 1.7-9.3 Granulocytes 70.7 % 42.2 - 75.2 Lymphocytes 1.6 10^3/uL 0.7 - 4.9 Monocytes 0.3 10^3/uL 0.1 - 0.9 Granulocytes 4.7 10^3/uL 1.5 - 7.2 RBC 4.48 3.90-5.70 Hemoglobin (Fma/CMC/CTX) 13.9 g/dL 12.1 - 17.2 Hematocrit (Fma/CMC/CTX) 41.1 % 36.1 - 50.3 Mean Corpuscular Vol 91.7 82.2-97.4 Mean Corpuscular Hemaglobin 31.0 27.6-33.3 Mean Corpuscular Hemo Concen 33.8 33.0-34.8 RDW 11.5 Low 11.6-13.7 Platelets 195. 10^3/ul 150-400 Mean Platelet Volume 8.3 7.4-10.4 Occult Blood (3) 06/11/2000 [facility] Occult Blood #1 NEG (607)- - Occult Blood #2 NEG 05/21/00 Occult Blood #3 NEG 05/25/00 Lipid Panel [facility] 04/19/1999 Triglyceride 170 mg/dL <200 Cholesterol 185 [...] 183 thous/L 130-400 Abs Neutrophils 3782 thous/L 7774-6004 Neutrophils 62 % Abs Lymphs 1830 cells/L [...] FRANCINE'D Procedures Date Code Description Status 02/26/2018 18490539 Mammogram Completed 07/20/2017 27469 Injection Subcutaneous Or Intramuscular Completed 02/06/2017 [id number] Mammogram Completed 10/01/2016 42750 Pulse Oximetry Completed 09/27/2016 09899 Nebulizer Treatment Completed 02/01/2016 [id number] Mammogram Completed 10/17/2015 20403 Pulse Oximetry Completed 10/17/2015 65353 Cintia flow vital capacity, total (seperate procedure) Completed 10/19/2014 [id number] Mammogram Completed 06/18/2012 [id number] Mammogram Completed 11/06/2011 68448 Finger Or Heel Stick Completed 06/13/2011 [id number] Mammogram Completed 06/12/2010 [id number] Mammogram Completed 02/09/2010 04849 Electrocardiogram Complete Completed 06/08/2009 [id number] Mammogram Completed 08/24/2008 86348 Electrocardiogram Complete Completed 06/07/2008 [id number] Mammogram Completed 06/04/2007 [id number] Mammogram Completed 11/19/2006 80761170 Colonoscopy Completed 11/12/2006 244191943 Bone Mineral Density Test Completed 04/19/2006 [id number] Mammogram Completed 05/14/2000 70322 Electrocardiogram Complete Completed Encounters Type Date Location Provider Dx Diagnosis Office Visit 12/27/2018 11:15a [facility] HUMPHREY Nunez R05 Cough R51 Headache J30.2 Other seasonal allergic rhinitis Office Visit 03/12/2018 1:40p [facility] Levi Hollingsworth I10 Essential ( primary) Kellie Bliss hypertension F41.9 Anxiety disorder, unspecified R06.02 Shortness of breath Office Visit 07/20/2017 11:00a [facility] Levi Hollingsworth M25.511 Pain in right Breiman, M.D. shoulder Office Visit 10/01/2016 9:45a [facility] Christine J06.9 Acute upper Hilsdorf, respiratory Afnp-C infection, unspecified J18.8 Other pneumonia, unspecified organism Office Visit 09/27/2016 8:15a [facility] Office Lisa Vasquez, [employer] R05 Cough J20.9 Acute bronchitis, unspecified Office Visit 09/17/2016 9:20a [facility] Office Levi Chauhan Essential ( primary) Kellie Bliss hypertension J06.9 Acute upper respiratory infection, unspecified F41.9 Anxiety disorder, unspecified Office Visit 02/02/2016 1:00p [facility] [place], N63 Unspecified lump Afnp-C in breast N64.59 [...] 724.5 Backache Unspec Office Visit 02/09/2010 9:30a [facility] Office Maryam Irene 536.8 Stomach Dyspepsia [employer] & Other Spec Disorders Of Function Office Visit 02/01/2010 8:00a [facility] Office Renzo Singh 729.5 Pain In Limb Kellie Deluna Office Visit 02/16/2009 4:00p Main Office Levi Hollingsworth 401.9 Hypertension Kellie Bliss Unspec 536.8 Stomach Dyspepsia & Other Spec Disorders Of Function 272.4 Hyperlipidemia Other Unspec Office Visit 12/13/2008 11:30a [facility] Office Beau Singh 726.19 Shoulder Disorders Kellie Zaragoza Other Spec Office Visit 08/24/2008 1:00p [facility] Office Levi Hollingsworth 536.8 Stomach Dyspepsia Kellie Bliss & Other Spec Disorders Of Function Office Visit 02/10/2008 8:00a [facility] Office Levi Hollingsworth 401.9 Hypertension Kellie Bliss Unspec V06.5 Tetanus Diphtheria (DT) Office Visit 10/08/2006 9:00a [facility] Office Levi Hollingsworth 401.9 Hypertension Kellie Bliss Unspec 272.4 Hyperlipidemia Other Unspec Office Visit 08/12/2006 1:00p [facility] Office Levi Hollingsworth 401.9 Hypertension Unspec Kellie Bliss 272.4 Hyperlipidemia Other Unspec Office Visit 01/18/2006 9:10a [facility] Office Levi Hollingsworth 401.9 Hypertension Unspec Kellie Bliss 272.4 Hyperlipidemia Other Unspec 780.79 Malaise And Fatigue Other Office Visit 01/02/2005 8:00a [facility] Office Levi Hollingsworth 780.79 Malaise And Kellie Bliss Fatigue Other V17.3 History Family Ischemic Heart Disease V77.91 Screening For Lipoid Disorders Office Visit 03/17/2004 2:00p [facility] Office Sussy Mart, 466.0 Bronchitis Acute Afnp-C Office Visit 01/26/2003 1:40p [facility] Office Levi Hollingsworth 611.72 Lump Or Mass Dago Bliss. Breast Office Visit 12/29/2002 10:20a [facility] Office Levi Hollingsworth V70.0 Examination Kellie Bliss General Medical Routine AT Health Care Facility Office Visit 12/04/2002 11:30a [facility] Office Sussy Mart, V65.5 Person W/ Feared Afnp-C Complaint In Whom No Diagnosis Was Made Office Visit 09/10/2000 1:20p [facility] Office Levi Bliss M.D. Office Visit 05/14/2000 9:20a [facility] Office Levi Bliss M.D. Plan of Treatment 12/29/2018 - Jacque Vazquez, PAS30.861A Insect bite (nonvenomous) of abdominal wall, initial encountNew Medication:Doxycycline Monohydrate 100 mg - 100 mg twice a day for 21 daysDoxycycline Monohydrate 100 mg - 100 mg twice a day for 7 days. Extra pills to complete 21 day courseComments:Switch to Claritin instead of Joslyn. Start doxycycline 100 mg BID for 3 weeks while we wait for blood work to come back.R11.0 NauseaNew Medication:Ondansetron HCL 4 mg - take one by mouth every 6 hours as needed for vomitingComments:Take Zofran as needed for nausea.AllComments:PCMHMedication Management Patient Understands medications he's taking? Yes Are there Barriers to Adherence? No Has the patient been asked about herbal supplements and therapies, and OTC meds ? Yes Care Plan1. Patient has been queried about patient's goals/ preferences and functional/lifestyle goals at relevant visits. Yes [...] or where to start, please contact the office.Follow up:[address] Zaragoza
--- OUTSIDE RECORDS SUMMARY | 2019-01-02 17:23 | XMS REPORT | Continuity of Care Document ---
:1940 External Reference #:[id number] Author Name MARIBELL Bowman Address [address] [facility] [place] [address] Care Team Providers Name Role Phone Levi Bliss MD Care Team Information Product Consultant Unavailable Levi Bliss MD Primary Care Physician Unavailable Payers Date Identification Numbers Payment Provider Subscriber Effective: 2007 Policy Number: [id number] [place] Haider PayID: [id number] [address] [place] [address] Effective: 2012 Policy Number: [id number] [facility] Amber Haider Options PayID: [id number] [address] [place] [address] Problems Active Problems Provider Date Essential hypertension [...] ject sq 1units Linda Guillermo 06/27/2012 - 06378Qmv/0.65ML Kellie Husain 11/19/2012 Solution Rec pune Lisinopril [...] Medicine 04/07/1999 - [facility] 05/14/2000 [place] Zithromax 2 Tabs Day 1 6units Bacilio [...] CPT Code Status Date Vaccine Lot # [id number] Given 06/09/2018 Pneumococcal Immunization 37904 Given 04/10/2018 High-Dose, Influenza Virus Vacccine-fluzone 65 and older 26264 Given 05/16/2015 High-Dose, Influenza Virus Vacccine-fluzone 65 and older 57071 Given 05/18/2013 DO Not Use Split Influenza Virus Vaccine 11755 Given 07/17/2012 Zostivax 72613 Given 05/14/2011 DO Not Use Split Influenza Virus Vaccine 49215 Given 02/10/2008 Tetanus And Diptheria Adult Preservative Free [id number] >7Yrs Vital Signs Date Vital Result Comment [...] x10^3/UL 1.56-6.13 Lymph# 0.33 x10^3/UL Low 1.18-3.74 [place]# 0.19 x10^3/UL Low 0.24-0.82 Eos # 0.0 x10^3/UL 0.0-0.5 Baso # 0.01 x10^3/UL 0.01-0.08 [place]% 86.4 % High 34.0-70.0 Lymph % 7.5 % Low 20.0-52.0 [place]% 4.3 % Low 5.0-12.0 Eos% 0.9 % [...] 3.47 x10^3/UL 1.56-6.13 Lymph# 2.23 x10^3/UL 1.18-3.74 [place]# 0.53 x10^3/UL 0.24-0.82 Eos # 0.4 x10^3/UL 0.0-0.5 Baso # 0.03 x10^3/UL 0.01-0.08 [place]% 51.8 % 34.0-70.0 Lymph % 33.2 % 20.0-52.0 [place]% 7.9 % 5.0-12.0 Eos% 6.6 % 0.7-7.0 [...] 5.1 x10^3/UL 1.5-7.2 Lymph# 1.4 x10^3/UL 0.7-4.9 [place]# 0.4 x10^3/UL 0.1-0.9 Gran % 72.7 % 42.2-75.2 Lymph % 21.5 % 20.5-51.1 [place]% 5.8 % 1.7-9.3 Laboratory test 11/16/2015 [facility] Immunoglobulin E, 258 IU/mL High 0- [address] [place] [address] (607)- - Comprehensive 06/29/2015 Charlie Pappas([facility]ma) Sodium [...] CALC 0.0-4.4 Complete Blood Count 06/29/2015 Charlie Pappas([facility]) WBC 7.2 x10^3/UL 3.6 -9.6 RBC 4.05 x10^6/UL 3.90-5.70 HGB 12.6 g/dL 12.1-17.2 HCT 37 % 36-50 MCV 91.0 fL 82.2-97.4 MCH 31.0 pg 27.6-33.3 MCHC 33.9 g/dL 33.0-35.5 RDW 12.4 % 11.6-13.7 PLT 243 x10^3/UL 150-400 MPV 7.6 fL 7.4-10.4 Gran # 4.5 x10^3/UL 1.5-7.2 Lymph# 2.4 x10^3/UL 0.7-4.9 [place]# 0.3 x10^3/UL 0.1-0.9 Gran % 60.0 % 42.2-75.2 Lymph % 34.5 % 20.5-51.1 [place]% 5.5 % 1.7-9.3 Comprehensive Metabolic 11/27/2012 Charlie Pappas([facility]) Albumin 4.7 g/dL 3.8-5.5 Prof Alk. Phos. [...] 16.3 Calc 8.0-36.0 Lipid Profile 11/27/2012 Charlie Pappas([facility]) Cholesterol 222 mg/dL High 120-200 HDL 57 [...] 0-129 VLDL (Calculated) 24 mg/dL 0-50 CBC ([facility]) 03/13/2010 [facility] Medicine WBC 8.7 3.6-9.6 (607)- - [...] 20.7 Calc 8.0-36.0 Lipid Profile 02/23/2009 Charlie Elyse([facility]) Cholesterol 222 mg/dL High 120-200 HDL 74 mg/dL 30-85 Triglycerides 120 mg/dL 30-200 HDL Risk Factor 3.0 CALC Low 4.2-7.0 LDL (Calculated) 124 CALC 0-129 VLDL (Calculated) 24 mg/dL 0-50 Complete Blood Count 02/23/2009 Charlie Pappas([facility]) WBC 6.9 x10^3/uL 3.6 -9.6 Gran# 4.9 [...] 11.6 % 11.6-13.7 Laboratory test 02/23/2009 Charlie Pappas([facility]) TSH 1.37 mIU/L 0.50-6.00 finding Comprehensive 02/10/2008 Charlie Pappas([facility]) Albumin 4.4 g/dL 3.8-5.5 Metabolic Prof Alk. [...] 15.0 Calc 8.0-36.0 Lipid Profile 02/10/2008 Charlie Pappas([facility]) Cholesterol 202 mg/dL High 120-200 15 HDL 59 mg/dL 30-85 Triglycerides 66 mg/dL 30-200 16 HDL Risk Factor 3.4 CALC Low 4.2-7.0 LDL (Calculated) 130 CALC High 0-129 VLDL (Calculated) 13 mg/dL 0-50 Complete Blood Count 02/10/2008 Charlie Pappas([facility]) WBC 5.3 x10^3/u 3.6- 9.6 Gran# 3.5 [...] 3.90-5.70 RDW 11.8 % 11.6-13.7 Lipid 10/08/2006 [facility] Cholesterol 236 mg/dL High 120-200 Panel-ALL Lab (607)- - ([facility]) Companies HDL-Chol 56 mg/dL 30-85 Triglyceride 125 mg/dL 30-200 LDL/HDL Chol. Ratio (F/C/CTX) - Chol./HDL Ratio ([facility]ma/CMC/CTX) - Low 30-85 LDL, Calculated ([facility]) 155 mg/dL High 0-129 HDL Risk Factor ([facility]ma) 4.2 CALC 4.2-7.0 Lipid Profile 01/18/2006 [facility] Cholesterol 250 mg/dL High 120- 200 (a) Female (607)- - ([facility]) Triglyceride 115 mg/dL 30-200 HDL-Chol 58 mg/dL 30-85 LDL, Calculated (Fma/CMC) 168 CALC High 0-129 VLDL 23 0-50 HDL Risk Factor (a) 4.3 CALC 4.2-7.0 Comp Metabolic 01/18/2006 [facility] Glucose, Serum 102 mg/dL 70- 105 [...] Bilirubin, Total 0.8 mg/dL 0.2-1.3 CBC Electronic ([facility]) 01/02/2005 [facility] WBC 6.1 3.6-9.6 (607)- - Lymphocytes [...] Mean Platelet Volume 7.5 7.4-10.4 Lipid Profile ([facility]) 01/02/2005 [facility] Cholesterol 224 mg/dL High 120-200 Female (607)- - Triglyceride 70 mg/dL 30-200 HDL-Chol 55 mg/dL 30-85 LDL, Calculated (a/CMC) 154 CALC High 0-129 LDL, Direct - mg/dL 0-130 VLDL 14 0-50 HDL Risk Factor ([facility]) 4.0 CALC Low 4.2-7.0 Comp Metabolic 01/02/2005 [facility] Glucose, Serum 94 mg/dL 70- 105 ([facility]) Female (607)- - (Fma/CMC/CTX) BUN (a/CMC/[facility]) [...] Bilirubin, Total 1.0 mg/dL 0.2-1.3 Lipid Profile ([facility]) 12/11/2002 [facility] Cholesterol 187 mg/dL 120 -200 (607)- - Triglyceride 360 mg/dL High 30-200 HDL-Chol 45 30-85 LDL-Calculated ([facility]) INVALID CALC 0-129 VLDL 72 High 0-50 HDL Risk Factor ([facility]) 4.1 CALC Low 4.2-7.0 Laboratory test finding 12/11/2002 [facility] LDL, Direct 81 mg/dL 0-130 (607)- - TSH 1.71 uIU/ml 0.5-6.0 Comp Metabolic 12/11/2002 [facility] Glucose, Serum 110 mg/dL 70- 118 ([facility]) (607)- - (Fma/CMC/CTX) BUN (a/CMC/[facility]) 18 mg/dL 7-26 Creatinine (a/CMC/CTX) 0.7 mg/dL 0.6-1.4 BUN/Creatinin Ratio 24.6 8.0-36 Sodium 145 134-149 Potassium 4.2 3.6-5.5 Chloride 106 mEq/L 94-112 Co2 24 21-32 Calcium (a/CMC/[facility]) 9.6 mg/dL 8.6-10.0 Total Protein 6.9 g/dL 6.3-8.1 Albumin ([facility]) 4.3 3.8-5.5 Globulin 2.6 2.0-4.8 A/G Ratio (a/CMC/[facility]) 1.7 0.6-2.2 Alkaline Phosphatase (F/C/CTX) 68 U/L 30-110 Alt (SGPT) 17 10-40 Ast (Sgot) (a/CMC/[facility]) 19 U/mL 5-34 Bilirubin, Total 0.6 mg/dL 0.2-1.3 CBC Electronic (a) 12/11/2002 [facility] WBC 6.6 3.6-9.6 (607)- - Lymphocytes [...] Volume 8.3 7.4-10.4 Occult Blood (3) 06/11/2000 [facility] Occult Blood #1 NEG (607)- - Occult Blood #2 NEG 05/21/00 Occult Blood #3 NEG 05/25/00 Lipid Panel [facility] 04/19/1999 Triglyceride 170 mg/dL <200 Cholesterol 185 [...] 183 thous/L 130-400 Abs Neutrophils 3782 thous/L 3071-6804 Neutrophils 62 % Abs Lymphs 1830 cells/L [...] FRANCINE'D Procedures Date Code Description Status 02/26/2018 [id number] Mammogram Completed 07/20/2017 56376 Injection Subcutaneous Or Intramuscular Completed 02/06/2017 [id number] Mammogram Completed 10/01/2016 86692 Pulse Oximetry Completed 09/27/2016 10839 Nebulizer Treatment Completed 02/01/2016 [id number] Mammogram Completed 10/17/2015 61178 Pulse Oximetry Completed 10/17/2015 27707 Cintia flow vital capacity, total (seperate procedure) Completed 10/19/2014 [id number] Mammogram Completed 06/18/2012 [id number] Mammogram Completed 11/06/2011 98357 Finger Or Heel Stick Completed 06/13/2011 [id number] Mammogram Completed 06/12/2010 [id number] Mammogram Completed 02/09/2010 48114 Electrocardiogram Complete Completed 06/08/2009 [id number] Mammogram Completed 08/24/2008 90210 Electrocardiogram Complete Completed 06/07/2008 [id number] Mammogram Completed 06/04/2007 [id number] Mammogram Completed 11/19/2006 [id number] Colonoscopy Completed 11/12/2006 [id number] Bone Mineral Density Test Completed 04/19/2006 [id number] Mammogram Completed 05/14/2000 93769 Electrocardiogram Complete Completed Encounters Type Date Location [...] Visit 09/27/2016 8:15a Main Office Lisa Vasquez, [employer] R05 Cough J20.9 Acute bronchitis, unspecified Office [...] 724.5 Backache Unspec Office Visit 02/09/2010 9:30a [facility] Office Maryam Irene 536.8 Stomach Dyspepsia [employer] & Other Spec Disorders Of Function Office Visit 02/01/2010 8:00a [facility] Office Renzo Singh 729.5 Pain In Limb Kellie Deluna Office Visit 02/16/2009 4:00p Main Office Levi Hollingsworth 401.9 Hypertension Kellie Bliss Unspec 536.8 Stomach Dyspepsia & Other Spec Disorders Of Function 272.4 Hyperlipidemia Other Unspec Office Visit 12/13/2008 11:30a [facility] Office Beau Singh 726.19 Shoulder Disorders Kellie Zaragoza Other Spec Office Visit 08/24/2008 1:00p [facility] Office Levi Hollingsworth 536.8 Stomach Dyspepsia Kellie Bliss & Other Spec Disorders Of Function Office Visit 02/10/2008 8:00a [facility] Office Levi Hollingsworth 401.9 Hypertension Kellie Bliss Unspec V06.5 Tetanus Diphtheria (DT) Office Visit 10/08/2006 9:00a [facility] Office Levi Hollingsworth 401.9 Hypertension Kellie Bliss Unspec 272.4 Hyperlipidemia Other Unspec Office Visit 08/12/2006 1:00p Main Office Levi Hollingsworth 401.9 Hypertension Unspec Kellie Bliss 272.4 Hyperlipidemia Other Unspec Office Visit 01/18/2006 9:10a Main Office Levi Hollingsworth 401.9 Hypertension Unspec Kellie Bliss 272.4 Hyperlipidemia Other Unspec 780.79 Malaise And Fatigue Other Office Visit 01/02/2005 8:00a [facility] Office Levi Hollingsworth 780.79 Malaise And Kellie Bliss Fatigue Other V17.3 History Family Ischemic Heart Disease V77.91 Screening For Lipoid Disorders Office Visit 03/17/2004 2:00p [facility] Office [place], 466.0 Bronchitis Acute Afnp-C Office Visit 01/26/2003 1:40p [facility] Office Levi Hollingsworth 611.72 Lump Or Mass Dago Bliss. Breast Office Visit 12/29/2002 10:20a [facility] Office Levi Hollingsworth V70.0 Examination Kellie Bliss General Medical Routine AT Health Care Facility Office Visit 12/04/2002 11:30a [facility] Office [place], V65.5 Person W/ Feared Afnp-C Complaint In Whom No Diagnosis Was Made Office Visit 09/10/2000 1:20p [facility] Office Levi Bliss M.D. Office Visit 05/14/2000 9:20a [facility] Office Levi Bliss M.D. Plan of [...] mouth every 6 hours as needed for vomitingAllComments:PCMHMedication Management Patient Understands medications he's taking? Yes [...]
--- OUTSIDE RECORDS SUMMARY | 2019-01-02 17:23 | XMS REPORT | Continuity of Care Document ---
:1940 External Reference #:[id number] Author Name MARIBELL Bowman Address [address] [facility] [place] [address] Care Team Providers Name Role Phone Levi Bliss MD Care Team Information Retail Wireless Associate Unavailable Levi Bliss MD Primary Care Physician Unavailable Payers Date Identification Numbers Payment Provider Subscriber Effective: 2007 Policy Number: [id number] Medicare [place] Amber Haider PayID: [id number] [address] [facility] [place] [address] Effective: 2012 Policy Number: [id number] [facility] Amber Haider Options PayID: [id number] [address] [place] [address] Problems Active Problems Provider Date Essential hypertension [...] day for 21 days M.D. 100mg Capsules Flonase Allergy instill 2 sprays 16units Lisa Pedro, 12/20/2016 Relief in each nostril JUNIOR ASSISTANT MANAGER 50mcg/Act daily as needed Suspension Travatan Z instill one drop Unknown 0.004% into both eyes Solution daily Lisinopril 1 by mouth every 90tabs Levi Bliss, 5mg day M.DTutu Tablets Ranitidine 150 1 by mouth every Unknown Maximum Strength day 150mg Tablets History Medications Zestril Take 1 Tablet By 30tasita Hollingsworth 04/22/2017 - 5mg Tablets Mouth Every Day Kellie Bliss 04/21/2018 Azithromycin 2 by mouth every 6tabs Christine 10/01/2016 - 250mg Tablets day x1 then 1 by Melinda, 10/06/2016 mouth every day Afnp-C x 4 more days Guaifenesin-Codeine 1-2 teaspoon 120ml [address] 09/27/2016 - every at bedtime [facility] 07/20/2017 100-10mg/5ML Syrup as needed for cough Benzonatate 1 by mouth three 45caps [address] 09/27/2016 - 100mg Capsules times a day as [facility] 11/19/2016 needed coughing Proair HFA 2 puffs every [address] 09/27/2016 - 108(90Base) mcg/Act hours as needed [facility] 07/20/2017 Aerosol Prednisone 3 x 3 days 2 x 3 18tabs Levi Hollingsworth 11/16/2015 - 20mg Tablets days 1 x 3 days Kellie Bliss 01/24/2016 Flonase instill 2 sprays 16units Levi Hollingsworth 06/27/2015 - 50mcg/Act Suspension in each nostril Kellie Bliss 12/20/2016 daily as needed Doxycycline Hyclate 1 po bid 20caps Christine 09/08/2013 - 100mg Melinda 09/18/2013 Capsules Afdonnell-C Zostavax in ject sq 1units Linda Eagle 06/27/2012 - 45495Qpt/0.65ML Kellie Husain 11/19/2012 Solution Rec pune Lisinopril [...] Bliss 12/04/2002 Keflex 1 PO tid 28units [facility] 04/07/1999 - 250mg [facility] 05/14/2000 [place] Zithromax 2 Tabs Day 1 6units Bacilio Guerrero, 03/13/1999 - 250mg Kellie 04/07/1999 1 Tab qd Days 2 Thru 5 Joslyn 1 bid 30units Levi Darrick 05/15/1997 - 60mg Kellie Bliss 03/13/1999 Prempro 1 PO qd 0unqi Bansal 05/07/1997 - 0.625/2.5 Kellie Mcwilliams 01/18/2006 Vancenase 0unqi Bansal 05/07/1997 - Kellie Mcwilliams 12/04/2002 Medrol as Directed 1unqi Bansal 05/07/1997 - Kellie Mcwilliams 05/14/1997 Robitussin ac 1-2 tsp po q4h 4Oz Christine 05/07/1997 - prn cough [facility] [place], 09/15/2013 Afnp-C Zantac take 1 tablet by Unknown - [...] CPT Code Status Date Vaccine Lot # [id number] Given 06/09/2018 Pneumococcal Immunization 27865 Given 04/10/2018 High-Dose, Influenza Virus Vacccine-fluzone 65 and older 81560 Given 05/16/2015 High-Dose, Influenza Virus Vacccine-fluzone 65 and older 56491 Given 05/18/2013 DO Not Use Split Influenza Virus Vaccine 55447 Given 07/17/2012 Zostivax 92797 Given 05/14/2011 DO Not Use Split Influenza Virus Vaccine 86239 Given 02/10/2008 Tetanus And Diptheria Adult Preservative Free [id number] >7Yrs Vital Signs Date Vital Result Comment [...] Date Facility Test Result H/L Range Note Comprehensive Metabolic 03/13/2018 [facility]) Sodium 134 mEq/L 134-149 Prof Potassium 4.7 [...] >60 ml/min/1.73m^ >=60 Lipid Profile 03/13/2018 [facility]) Cholesterol 200 mg/dL 120- 200 Triglycerides 77 mg/dL 30-200 HDL Cholesterol 59 mg/dL 30-85 LDL (Calculated) 126 CALC 0-129 VLDL Cholesterol 15 mg/dL 0-50 HDL Risk Factor 3.4 CALC 0.0-4.4 CBC Electronic a 03/13/2018 [facility]) WBC 6.7 x10^3/UL 4.0- 10.0 RBC 3.77 x10^6/UL Low 3.93-6.00 HGB 11.5 g/dL Low 12.0-17.0 1 HCT 34 % Low 35-50 2 MCV 89.9 fL 80.0-95.0 MCH 30.5 pg 25.6-32.2 MCHC 33.9 g/dL 32.2-36.0 RDW-CV 11.7 % 11.6-14.4 PLT 190 x10^3/UL 163-400 MPV 9.5 fL 9.4-12.4 Erin# 3.47 x10^3/UL 1.56-6.13 Lymph# 2.23 x10^3/UL 1.18-3.74 Lumpkin# 0.53 x10^3/UL 0.24-0.82 Eos # 0.4 x10^3/UL 0.0-0.5 Baso # 0.03 x10^3/UL 0.01-0.08 Erin% 51.8 % 34.0-70.0 Lymph % 33.2 % 20.0-52.0 Lumpkin% 7.9 % 5.0-12.0 Eos% 6.6 % 0.7-7.0 Baso% 0.4 % 0.1-1.2 CBC Auto Diff 09/18/2016 [facility] [place] [place] White Blood Count 10.8 10^3/uL N 3.5-10.8 [...] 5.1 x10^3/UL 1.5-7.2 Lymph# 1.4 x10^3/UL 0.7-4.9 Lumpkin# 0.4 x10^3/UL 0.1-0.9 Gran % 72.7 % 42.2-75.2 Lymph % 21.5 % 20.5-51.1 Lumpkin% 5.8 % 1.7-9.3 Laboratory test 11/16/2015 [facility] Immunoglobulin E, 258 IU/mL High 0- [address] [place] [address] (605)- - Comprehensive 06/29/2015 [facility]) Sodium 132 mEq/L Low 134- 149 [...] >60 ml/min/1.73m^ >=60 Lipid Profile 06/29/2015 Charlie Pappas([facility]) Cholesterol 226 mg/dL High 120-200 Triglycerides 92 mg/dL 30-200 HDL Cholesterol 65 mg/dL 30-85 LDL (Calculated) 143 CALC High 0-129 VLDL Cholesterol 18 mg/dL 0-50 HDL Risk Factor 3.5 CALC 0.0-4.4 Complete Blood Count 06/29/2015 Charlie Pappas([facility]) WBC 7.2 x10^3/UL 3.6 -9.6 RBC 4.05 x10^6/UL 3.90-5.70 HGB 12.6 g/dL 12.1-17.2 HCT 37 % 36-50 MCV 91.0 fL 82.2-97.4 MCH 31.0 pg 27.6-33.3 MCHC 33.9 g/dL 33.0-35.5 RDW 12.4 % 11.6-13.7 PLT 243 x10^3/UL 150-400 MPV 7.6 fL 7.4-10.4 Gran # 4.5 x10^3/UL 1.5-7.2 Lymph# 2.4 x10^3/UL 0.7-4.9 Lumpkin# 0.3 x10^3/UL 0.1-0.9 Gran % 60.0 % 42.2-75.2 Lymph % 34.5 % 20.5-51.1 Lumpkin% 5.5 % 1.7-9.3 Comprehensive Metabolic 11/27/2012 Charlie Pappas([facility]) Albumin 4.7 g/dL 3.8-5.5 Prof [...] Ratio 24.0 Calc 8.0-36.0 Lipid Profile 03/13/2010 Charlie Elyse([facility]) Cholesterol 225 mg/dL High 120-200 HDL 53 mg/dL 30-85 Triglycerides 121 mg/dL 30-200 HDL Risk Factor 4.2 CALC 4.2-7.0 LDL (Calculated) 147 CALC High 0-129 VLDL (Calculated) 24 mg/dL 0-50 CBC ([facility]) 03/13/2010 [facility] WBC 8.7 3.6-9.6 (607)- - RBC 4.43 3.90-5.70 Hemoglobin (Fma/CMC/CTX) 13.3 g/dL 12.1 - 17.2 Hematocrit (a/CMC/CTX) 39.3 % 36.1 - 50.3 Mean Corpuscular Vol 88.7 82.2-97.4 Mean Corpuscular Hemaglobin 30.0 27.6-33.3 Mean Corpuscular Hemo Concen 33.8 33.0-36.0 Platelets 228 10^3/ul 150-400 Lymph% 20.8 20.5-51.1 Mixed% 6.0 Neutrophils % 73.2 RDW 11.6 11.6-13.7 Mean Platelet Volume 11.3 High 7.4-10.4 Comprehensive Metabolic 02/23/2009 Charlie Elyse([facility]) Albumin 4.6 g/dL 3.8-5.5 13 [...] 20.7 Calc 8.0-36.0 Lipid Profile 02/23/2009 Charlie Elyse([facility]) Cholesterol 222 mg/dL High 120-200 HDL 74 mg/dL 30-85 Triglycerides 120 mg/dL 30-200 HDL Risk Factor 3.0 CALC Low 4.2-7.0 LDL (Calculated) 124 CALC 0-129 VLDL (Calculated) 24 mg/dL 0-50 Complete Blood Count 02/23/2009 Guerra Fl[facility]) WBC 6.9 x10^3/uL 3.6 -9.6 [...] 11.6 % 11.6-13.7 Laboratory test 02/23/2009 Charlie Pappas([facility]) TSH 1.37 mIU/L 0.50-6.00 finding Comprehensive 02/10/2008 Charlie Pappas([facility]) Albumin 4.4 g/dL 3.8-5.5 Metabolic [...] 15.0 Calc 8.0-36.0 Lipid Profile 02/10/2008 Charlie Pappas([facility]) Cholesterol 202 mg/dL High 120-200 15 HDL 59 mg/dL 30-85 Triglycerides 66 mg/dL 30-200 16 HDL Risk Factor 3.4 CALC Low 4.2-7.0 LDL (Calculated) 130 CALC High 0-129 VLDL (Calculated) 13 mg/dL 0-50 Complete Blood Count 02/10/2008 Charlie Pappas([facility]) WBC 5.3 x10^3/u 3.6- 9.6 [...] 3.90-5.70 RDW 11.8 % 11.6-13.7 Lipid 10/08/2006 [facility] Cholesterol 236 mg/dL High 120-200 Panel-ALL Lab (607)- - (Fma/CMC/[facility]) Companies HDL-Chol 56 mg/dL 30-85 Triglyceride 125 mg/dL 30-200 LDL/HDL Chol. Ratio (F/C/CTX) - Chol./HDL Ratio (Fma/CMC/CTX) - Low 30-85 LDL, Calculated ([facility]) 155 mg/dL High 0-129 HDL Risk Factor (Fma) 4.2 CALC 4.2-7.0 Lipid Profile 01/18/2006 [facility] Cholesterol 250 mg/dL High 120- 200 ([facility]) Female (607)- - (Fma/CMC/[facility]) Triglyceride 115 mg/dL 30-200 HDL-Chol 58 mg/dL 30-85 LDL, Calculated (Fma/CMC) 168 CALC High 0-129 VLDL 23 0-50 HDL Risk Factor (a) 4.3 CALC 4.2-7.0 Comp Metabolic 01/18/2006 [facility] Glucose, Serum 102 mg/dL 70- 105 (a) [...] (F/C/CTX) 88 U/L 30-110 Alt (SGPT) Female ([facility]) 20 7-35 Ast Sgot 19 U/L 5-34 Bilirubin, Total 0.8 mg/dL 0.2-1.3 CBC Electronic ([facility]) 01/02/2005 [facility] WBC 6.1 3.6-9.6 (607)- - Lymphocytes 27.2 % 20.5 - 51.1 Monocytes 5.1 % 1.7-9.3 Granulocytes 67.7 % 42.2 - 75.2 Lymphocytes 1.7 10^3/uL 0.7 - 4.9 Monocytes 0.3 10^3/uL 0.1 - 0.9 Granulocytes 4.1 10^3/uL 1.5 - 7.2 RBC 4.34 3.90-5.70 Hemoglobin (a/CMC/CTX) 13.3 g/dL 12.1 - 17.2 Hematocrit (a/CMC/CTX) 39.0 % 36.1 - 50.3 Mean Corpuscular Vol 89.8 82.2-97.4 Mean Corpuscular Hemaglobin 30.5 27.6-33.3 Mean Corpuscular Hemo Concen 34.0 33.0-36.0 RDW 11.9 11.6-13.7 Platelets 226. 10^3/ul 150-400 Mean Platelet Volume 7.5 7.4-10.4 Lipid Profile ([facility]) 01/02/2005 [facility] Cholesterol 224 mg/dL High 120-200 Female (607)- - Triglyceride 70 mg/dL 30-200 HDL-Chol 55 mg/dL 30-85 LDL, Calculated (a/CMC) 154 CALC High 0-129 LDL, Direct - mg/dL 0-130 VLDL 14 0-50 HDL Risk Factor ([facility]) 4.0 CALC Low 4.2-7.0 Comp Metabolic 01/02/2005 [facility] Glucose, Serum 94 mg/dL 70- 105 ([facility]) Female (607)- - (Fma/CMC/CTX) BUN ([facility]/CMC/[facility]) 18 mg/dL 6-26 Creatinine, Serum 0.7 mg/dL 0.6-1.4 BUN/Creatinin Ratio 24.1 8.0-36 Sodium 143 134-149 Potassium 4.7 3.6-5.5 Chloride 103 mEq/L 94-112 Co2 28 21-32 Calcium (Fma/CMC/[facility]) 9.8 mg/dL 8.6-10.2 Total Protein 7.0 g/dL 6.3-8.1 Albumin (a/CMCC/[facility]) 4.3 3.8-5.5 Globulin 2.6 2.0-4.8 A/G Ratio (A/G Ratio) 1.6 0.6-2.2 Alkaline Phosphatase (F/C/CTX) 74 U/L 22-95 Alt (SGPT) (a/CMC/[facility]) 19 7-35 Ast (Sgot) (a/[facility] [place]/[facility]) 20 U/mL 5-34 Bilirubin, Total 1.0 mg/dL 0.2-1.3 Lipid Profile ([facility]) 12/11/2002 [facility] Cholesterol 187 mg/dL 120 -200 (607)- - Triglyceride 360 mg/dL High 30-200 HDL-Chol 45 30-85 LDL-Calculated ([facility] [place]) INVALID CALC 0-129 VLDL 72 High 0-50 HDL Risk Factor ([facility]) 4.1 CALC Low 4.2-7.0 Laboratory test finding 12/11/2002 [facility] LDL, Direct 81 mg/dL 0-130 (607)- - TSH 1.71 uIU/ml 0.5-6.0 Comp Metabolic 12/11/2002 [facility] Glucose, Serum 110 mg/dL 70- 118 ([facility]) (607)- - (Fma/CMC/CTX) BUN (a/CMC/[facility]) 18 mg/dL 7-26 Creatinine (a/CMC/CTX) 0.7 mg/dL 0.6-1.4 BUN/Creatinin Ratio 24.6 8.0-36 Sodium 145 134-149 Potassium 4.2 3.6-5.5 Chloride 106 mEq/L 94-112 Co2 24 21-32 Calcium (Fma/CMC/[facility]) 9.6 mg/dL 8.6-10.0 Total Protein 6.9 g/dL 6.3-8.1 Albumin (a/CMCC/[facility]) 4.3 3.8-5.5 Globulin 2.6 2.0-4.8 A/G Ratio (a/CMC/[facility]) 1.7 0.6-2.2 Alkaline Phosphatase (F/C/CTX) 68 U/L 30-110 Alt (SGPT) 17 10-40 Ast (Sgot) (a/CMC/[facility]) 19 U/mL 5-34 Bilirubin, Total 0.6 mg/dL 0.2-1.3 CBC Electronic ([facility]) 12/11/2002 [facility] WBC 6.6 3.6-9.6 (607)- - Lymphocytes 24.0 % 20.5 - 51.1 Monocytes 5.3 % 1.7-9.3 Granulocytes 70.7 % 42.2 - 75.2 Lymphocytes 1.6 10^3/uL 0.7 - 4.9 Monocytes 0.3 10^3/uL 0.1 - 0.9 Granulocytes 4.7 10^3/uL 1.5 - 7.2 RBC 4.48 3.90-5.70 Hemoglobin (a/CMC/CTX) 13.9 g/dL 12.1 - 17.2 Hematocrit (a/CMC/CTX) 41.1 % 36.1 - 50.3 Mean Corpuscular Vol 91.7 82.2-97.4 Mean Corpuscular Hemaglobin 31.0 27.6-33.3 Mean Corpuscular Hemo Concen 33.8 33.0-34.8 RDW 11.5 Low 11.6-13.7 Platelets 195. 10^3/ul 150-400 Mean Platelet Volume 8.3 7.4-10.4 Occult Blood (3) 06/11/2000 [facility] Occult Blood #1 NEG (607)- - Occult Blood #2 NEG 05/21/00 Occult Blood #3 NEG 05/25/00 Lipid Panel [facility] 04/19/1999 Triglyceride 170 mg/dL <200 Cholesterol 185 mg/dL <200 HDL-Chol 51 mg/dL >34 LDL-Calculated 100 mg/dL 0-130 Cholesterol / HDL Ratio 3.63 (CALC) <4.45 Comp Metabolic ([facility]) 04/19/1999 Glucose 100 mg/dL 70-115 BUN 10 [...] 183 thous/L 130-400 Abs Neutrophils 3782 thous/L 8838-3762 Neutrophils 62 % Abs Lymphs 1830 cells/L [...] FRANCINE'D Procedures Date Code Description Status 02/26/2018 07364096 Mammogram Completed 07/20/2017 78300 Injection Subcutaneous Or Intramuscular Completed 02/06/2017 [id number] Mammogram Completed 10/01/2016 43210 Pulse Oximetry Completed 09/27/2016 98415 Nebulizer Treatment Completed 02/01/2016 [id number] Mammogram Completed 10/17/2015 87293 Pulse Oximetry Completed 10/17/2015 01087 Cintia flow vital capacity, total (seperate procedure) Completed 10/19/2014 [id number] Mammogram Completed 06/18/2012 [id number] Mammogram Completed 11/06/2011 00642 Finger Or Heel Stick Completed 06/13/2011 [id number] Mammogram Completed 06/12/2010 [id number] Mammogram Completed 02/09/2010 74963 Electrocardiogram Complete Completed 06/08/2009 [id number] Mammogram Completed 08/24/2008 60316 Electrocardiogram Complete Completed 06/07/2008 [id number] Mammogram Completed 06/04/2007 [id number] Mammogram Completed 11/19/2006 [id number] Colonoscopy Completed 11/12/2006 023491310 Bone Mineral Density Test Completed 04/19/2006 [id number] Mammogram Completed 05/14/2000 93631 Electrocardiogram Complete Completed Encounters Type Date Location Provider Dx Diagnosis Office Visit 03/12/2018 Main Office Levi Bliss, Gissel Essential ( primary) 1:40p Kellie hypertension F41.9 Anxiety disorder, unspecified R06.02 Shortness of breath Office Visit 07/20/2017 11:00a Main Office Levi Hollingsworth M25.511 Pain in right Kellie Bliss shoulder Office Visit 10/01/2016 9:45a [facility] Christine J06.9 Acute upper Hilsdorf, respiratory Afnp-C infection, unspecified J18.8 Other pneumonia, unspecified organism Office Visit 09/27/2016 8:15a Main Office Lisakarlene Vasquez, JUNIOR ASSISTANT MANAGER R05 Cough J20.9 Acute bronchitis, unspecified Office Visit 09/17/2016 9:20a Main Office Levi Chauhan Essential ( primary) Kellie Bliss hypertension J06.9 Acute upper respiratory infection, unspecified F41.9 Anxiety disorder, unspecified Office Visit 02/02/2016 1:00p [facility] Sussysarah Mart, N63 Unspecified lump Afnp-C in breast N64.59 Other signs and symptoms in breast Office Visit 01/24/2016 2:30p Main Office Sussy Mart, N63 Unspecified lump Afnp-C in breast Office Visit 11/16/2015 9:10a Main Office Levi Hollingsworth R05 Cough Kellie Bliss Office Visit 10/17/2015 3:00p Main Office Levi Hollingsworth R06.02 Shortness of Kellie Bliss breath Office Visit 06/27/2015 1:40p Main Office Levi Hollingsworth I1Katherine Essential Kellie Bliss (primary) hypertension Office Visit [...] Hollingsworth 959.6 Injury Hip & Thigh Kellie Blsis Other & Unspec Office Visit 11/06/2011 9:10a [...] [facility] Maryam Irene 536.8 Stomach Dyspepsia JUNIOR ASSISTANT MANAGER & Other Spec Disorders Of Function Office [...] 1:00p [facility] Levi Hollingsworth 536.8 Stomach Dyspepsdiana Bliss M.D. & Other Spec Disorders Of Function Office [...] Office Visit 01/26/2003 1:40p [facility] Office Levi Hollingsworth 611.72 Lump Or Mass Kellie Bliss Breast Office Visit 12/29/2002 10:20a [facility] Office Levi Hollingsworth V70.0 Examination Kellie Bliss General Medical Routine AT Health Care Facility Office Visit 12/04/2002 11:30a [facility] Office Sussy Mart V65.5 Person W/ Feared Afnp-C Complaint In Whom No Diagnosis Was Made Office Visit 09/10/2000 1:20p [facility] Office Levi Bliss M.D. Office Visit 05/14/2000 9:20a [facility] Levi Bliss M.D. Plan of Treatment 12/29/2018 - Jacque Vazquez, PAS30.861A Insect bite (nonvenomous) of abdominal wall, initial encounterNew Medication:Doxycycline Monohydrate 100 mg - 100 mg twice a day for 21 daysComments:Switch to Claritin instead of Joslyn. Start doxycycline 100 mg BID for 3 weeks while we wait for blood work to come back.AllComments:PCMHMedication Management Patient Understands medications he' s taking? Yes Are there Barriers to Adherence? [...]
--- OUTSIDE RECORDS SUMMARY | 2019-01-02 17:24 | XMS REPORT | Continuity of Care Document ---
:1940 External Reference #:[id number] Author Name HUMPHREY Nunez Address [address] [facility] [place] [address] Care Team Providers Name Role Phone Levi Bliss MD Care Team Information Silo Erector Unavailable Levi Bliss MD Primary Care Physician Unavailable Payers Date Identification Numbers Payment Provider Subscriber Effective: 2007 Policy Number: [id number] [place] Amber Haider PayID: [id number] [address] [place] [address] Effective: 2012 Policy Number: [id number] [facility] Amber Haider Options PayID: [id number] [address] [place] [address] Problems Active Problems Provider Date Essential hypertension [...] Unknown Nonsmoker Tobacco Use Start: Unknown Nonsmoker Allergies, Adverse Reactions, Alerts Active Allergies Reaction Severity Comments Date Penicillin Medications Active Medications SIG Qnty Indications Ordering Provider Date Flonase Allergy instill 2 sprays 16units Lisa Vasquez, 12/20/2016 Relief in each nostril BIOMETRICS EXPERIMENTALIST 50mcg/Act daily as needed Suspension Travatan Z [...] 4 more days Guaifenesin-Codeine 1-2 teaspoon 120ml [address] 09/27/2016 - [facility] at [facility] 100-10mg/5ML Syrup as needed for cough Benzonatate 1 by mouth three 45caps [address] 09/27/2016 - 100mg Capsules times a day as [facility] 11/19/2016 needed coughing Proair HFA 2 puffs every [address] 09/27/2016 - 108(90Base) mcg/Act hours as needed [facility] 07/20/2017 Aerosol Prednisone 3 x 3 days 2 x 3 18tabs Levi Hollingsworth 11/16/2015 - 20mg Tablets days 1 x 3 days Kellie Bliss 01/24/2016 Flonase instill 2 sprays 16units Levi Hollingsworth 06/27/2015 - 50mcg/Act Suspension in each nostril Kellie Bliss 12/20/2016 daily as needed Doxycycline Hyclate 1 po bid 20caps Chrisitne 09/08/2013 - 100mg Melinda, 09/18/2013 Capsules Afnp-C Zostavax in ject sq 1units Linda Guillermo 06/27/2012 - 12079Fbb/0.65ML Kellie Husain 11/19/2012 Solution Rec mike Lisinopril take 1 tablet by 30tabs Lisa [...] Medicine 04/07/1999 - 250mg [facility] 05/14/2000 Hornick Zithromax 2 Tabs Day 1 6units Bacilio Guerrero, 03/13/1999 - 250mg Kellie 04/07/1999 1 Tab qd Days 2 Thru 5 Joslyn 1 bid 30units Levi WaltersTutu 05/15/1997 - 60mg Kellie Bliss 03/13/1999 Prempro 1 PO qd 0unqi Purcell Rolf 05/07/1997 - 0.625/2.5 Kellie Mcwilliams 01/18/2006 Vancenase 0unqi Binh Bansal 05/07/1997 - Kellie Mcwilliams 12/04/2002 Medrol as Directed 1unqi Binh Bansal 05/07/1997 - Kellie Mcwilliams 05/14/1997 Robitussin ac 1-2 tsp po q4h 4Oz Christine 05/07/1997 - prn cough Hilsdorf, 09/15/2013 Afnp-C Zantac take 1 tablet by [...] CPT Code Status Date Vaccine Lot # [id number] Given 06/09/2018 Pneumococcal Immunization 08056 Given 04/10/2018 High-Dose, Influenza Virus Vacccine-fluzone 65 and older 59244 Given 05/16/2015 High-Dose, Influenza Virus Vacccine-fluzone 65 and older 98443 Given 05/18/2013 DO Not Use Split Influenza Virus Vaccine 75680 Given 07/17/2012 Zostivax 97628 Given 05/14/2011 DO Not Use Split Influenza Virus Vaccine 17466 Given 02/10/2008 Tetanus And Diptheria Adult Preservative Free [id number] >7Yrs Vital Signs Date Vital Result Comment 12/27/2018 11:23am BP Systolic 140 mmHg BP [...] H/L Range Note Comprehensive Metabolic 03/13/2018 Charlie Elyse(fma) Sodium 134 mEq/L 134-149 Prof Potassium [...] 3.47 x10^3/UL 1.56-6.13 Lymph# 2.23 x10^3/UL 1.18-3.74 Meade# 0.53 x10^3/UL 0.24-0.82 Eos # 0.4 x10^3/UL 0.0-0.5 Baso # 0.03 x10^3/UL 0.01-0.08 Erin% 51.8 % 34.0-70.0 Lymph % 33.2 % 20.0-52.0 Meade% 7.9 % 5.0-12.0 Eos% 6.6 % 0.7-7.0 Baso% 0.4 % 0.1-1.2 CBC Auto Diff 09/18/2016 [facility] White Blood Count 10.8 10^3/uL N 3.5-10.8 [...] 5.1 x10^3/UL 1.5-7.2 Lymph# 1.4 x10^3/UL 0.7-4.9 Meade# 0.4 x10^3/UL 0.1-0.9 Gran % 72.7 % 42.2-75.2 Lymph % 21.5 % 20.5-51.1 Meade% 5.8 % 1.7-9.3 Laboratory test 11/16/2015 [facility] Immunoglobulin E, 258 IU/mL High 0- 100 8 finding [address] [facility] [place] [address] (607)- - Comprehensive 06/29/2015 Charlie Pappas(fma) Sodium [...] 4.5 x10^3/UL 1.5-7.2 Lymph# 2.4 x10^3/UL 0.7-4.9 Meade# 0.3 x10^3/UL 0.1-0.9 Gran % 60.0 % 42.2-75.2 Lymph % 34.5 % 20.5-51.1 Meade% 5.5 % 1.7-9.3 Comprehensive Metabolic 11/27/2012 Charlie Pappas([facility]) Albumin 4.7 g/dL 3.8-5.5 Prof Alk. [...] 16.3 Calc 8.0-36.0 Lipid Profile 11/27/2012 Charlie Pappas([facility]) Cholesterol 222 mg/dL High 120-200 HDL [...] Ratio 23.4 Calc 8.0-36.0 Lipid Profile 05/18/2011 Geurra Elyse(a) Cholesterol 232 mg/dL High 120-200 HDL [...] 0-129 VLDL (Calculated) 24 mg/dL 0-50 CBC ([facility]) 03/13/2010 Family Medicine WBC 8.7 3.6-9.6 (607)- [...] 20.7 Calc 8.0-36.0 Lipid Profile 02/23/2009 Charlie Elyse(a) Cholesterol 222 mg/dL High 120-200 HDL [...] 1.37 mIU/L 0.50-6.00 finding Comprehensive 02/10/2008 Charlie Elyse(a) Albumin 4.4 g/dL 3.8-5.5 Metabolic Prof Alk. [...] 15.0 Calc 8.0-36.0 Lipid Profile 02/10/2008 Charlie Pappas([facility]) Cholesterol 202 mg/dL High 120-200 15 HDL 59 mg/dL 30-85 Triglycerides 66 mg/dL 30-200 16 HDL Risk Factor 3.4 CALC Low 4.2-7.0 LDL (Calculated) 130 CALC High 0-129 VLDL (Calculated) 13 mg/dL 0-50 Complete Blood Count 02/10/2008 Charlie Pappas([facility]) WBC 5.3 x10^3/u 3.6- 9.6 Gran# [...] 3.90-5.70 RDW 11.8 % 11.6-13.7 Lipid 10/08/2006 [facility] Cholesterol 236 mg/dL High 120-200 Panel-ALL Lab (607)- - (Fma/CMC/[facility]) Companies HDL-Chol 56 mg/dL 30-85 Triglyceride 125 mg/dL 30-200 LDL/HDL Chol. Ratio (F/C/CTX) - Chol./HDL Ratio (Fma/CMC/CTX) - Low 30-85 LDL, Calculated ([facility]) 155 mg/dL High 0-129 HDL Risk Factor (a) 4.2 CALC 4.2-7.0 Lipid Profile 01/18/2006 [facility] Cholesterol 250 mg/dL High 120- 200 (a) Female (607)- - (Fma/CMC/[facility]) Triglyceride 115 mg/dL 30-200 HDL-Chol 58 mg/dL 30-85 LDL, Calculated (Fma/CMC) 168 CALC High 0-129 VLDL 23 0-50 HDL Risk Factor (a) 4.3 CALC 4.2-7.0 Comp Metabolic 01/18/2006 [facility] Glucose, Serum 102 mg/dL 70- 105 (a) Female (607)- - (Fma/CMC/CTX) BUN (Fma/CMC/[facility]) 15 mg/dL 6-26 Creatinine, Serum 0.8 mg/dL 0.6-1.4 BUN/Creatinin Ratio 18.0 8.0-36 Sodium 139 134-149 Potassium 4.4 3.6-5.5 Chloride 98 mEq/L 94-112 Co2 26 21-32 Calcium (Fma/CMC/[facility]) 9.9 mg/dL 8.6-10.2 Total Protein 7.5 g/dL 6.3-8.1 Albumin ([facility]CC/[facility]) 4.9 3.8-5.5 Globulin 2.6 2.0-4.8 A/G Ratio (A/G Ratio) 1.9 0.6-2.2 Alkaline Phosphatase (F/C/CTX) 88 U/L 30-110 Alt (SGPT) Female (a) 20 7-35 Ast Sgot 19 U/L 5-34 Bilirubin, Total 0.8 mg/dL 0.2-1.3 CBC Electronic ([facility]) 01/02/2005 [facility] WBC 6.1 3.6-9.6 (607)- - Lymphocytes 27.2 [...] Mean Platelet Volume 7.5 7.4-10.4 Lipid Profile ([facility]) 01/02/2005 [facility] Cholesterol 224 mg/dL High 120-200 Female (607)- - Triglyceride 70 mg/dL 30-200 HDL-Chol 55 mg/dL 30-85 LDL, Calculated ([facility]) 154 CALC High 0-129 LDL, Direct - mg/dL 0-130 VLDL 14 0-50 HDL Risk Factor ([facility]) 4.0 CALC Low 4.2-7.0 Comp Metabolic 01/02/2005 [facility] Glucose, Serum 94 mg/dL 70- 105 ([facility]) Female (607)- - (Fma/CMC/CTX) BUN (a/CMC/[facility]) [...] Bilirubin, Total 1.0 mg/dL 0.2-1.3 Lipid Profile ([facility]) 12/11/2002 [facility] Cholesterol 187 mg/dL 120 -200 (607)- - Triglyceride 360 mg/dL High 30-200 HDL-Chol 45 30-85 LDL-Calculated ([facility]) INVALID CALC 0-129 VLDL 72 High 0-50 HDL Risk Factor ([facility]) 4.1 CALC Low 4.2-7.0 Laboratory test finding 12/11/2002 [facility] LDL, Direct 81 mg/dL 0-130 (607)- - TSH 1.71 uIU/ml 0.5-6.0 Comp Metabolic 12/11/2002 [facility] Glucose, Serum 110 mg/dL 70- 118 ([facility]) (607)- - (Fma/CMC/CTX) BUN (a/CMC/[facility]) 18 [...] 0.6 mg/dL 0.2-1.3 CBC Electronic (a) 12/11/2002 [facility] WBC 6.6 3.6-9.6 (607)- - Lymphocytes 24.0 [...] Volume 8.3 7.4-10.4 Occult Blood (3) 06/11/2000 [facility] Occult Blood #1 NEG (607)- - Occult Blood #2 NEG 05/21/00 Occult Blood #3 NEG 05/25/00 Lipid Panel [facility] 04/19/1999 Triglyceride 170 mg/dL <200 Cholesterol [...] 183 thous/L 130-400 Abs Neutrophils 3782 thous/L 4812-9907 Neutrophils 62 % Abs Lymphs 1830 cells/L [...] FRANCINE'D Procedures Date Code Description Status 02/26/2018 76890501 Mammogram Completed 07/20/2017 71982 Injection Subcutaneous Or Intramuscular Completed 02/06/2017 [id number] Mammogram Completed 10/01/2016 36211 Pulse Oximetry Completed 09/27/2016 80629 Nebulizer Treatment Completed 02/01/2016 [id number] Mammogram Completed 10/17/2015 24808 Pulse Oximetry Completed 10/17/2015 05035 Cintia flow vital capacity, total (seperate procedure) Completed 10/19/2014 [id number] Mammogram Completed 06/18/2012 [id number] Mammogram Completed 11/06/2011 82974 Finger Or Heel Stick Completed 06/13/2011 [id number] Mammogram Completed 06/12/2010 [id number] Mammogram Completed 02/09/2010 55134 Electrocardiogram Complete Completed 06/08/2009 [id number] Mammogram Completed 08/24/2008 40102 Electrocardiogram Complete Completed 06/07/2008 [id number] Mammogram Completed 06/04/2007 [id number] Mammogram Completed 11/19/2006 [id number] Colonoscopy Completed 11/12/2006 638110266 Bone Mineral Density Test Completed 04/19/2006 [id number] Mammogram Completed 05/14/2000 39573 Electrocardiogram Complete Completed Encounters Type Date Location Provider Dx Diagnosis Office Visit 03/12/2018 Main Office Levi Bliss, I10 Essential ( primary) 1:40p Kellie hypertension F41.9 Anxiety disorder, unspecified R06.02 Shortness of breath Office Visit 07/20/2017 11:00a Main Office Levi Hollingsworth M25.511 Pain in right Kellie Bliss shoulder Office Visit 10/01/2016 9:45a [facility] Christine J06.9 Acute upper Hilsdorf, respiratory Afnp-C infection, unspecified J18.8 Other pneumonia, unspecified organism Office Visit 09/27/2016 8:15a Main Office Lisa Loubhart, BIOMETRICS EXPERIMENTALIST R05 Cough J20.9 Acute bronchitis, unspecified Office Visit 09/17/2016 9:20a Main Office Levi Hollingsworth I10 Essential ( primary) Kellie Bliss hypertension J06.9 [...] Visit 06/27/2015 1:40p Main Office Levi Hollingsworth I10 Essential Kellie Bliss (primary) hypertension Office Visit [...] Visit 11/06/2011 9:10a [facility] Levi Hollingsworth 95Alysa.6 Injury Hip & Thigh Kellie Bliss Other [...] Office Visit 02/09/2010 9:30a [facility] Maryam Irene, 536.8 Stomach Dyspepsia BIOMETRICS EXPERIMENTALIST & Other Spec Disorders Of Function Office [...] Office Visit 01/18/2006 9:10a Main Office Levi Hollingswotrh 401.9 Hypertension Unspec Kellie Bliss 272.4 Hyperlipidemia Other Unspec 780.79 Malaise And Fatigue Other Office Visit 01/02/2005 8:00a [facility] Levi Hollingsworth 780.79 Malaise And Kellie Bliss Fatigue Other V17.3 History Family Ischemic Heart Disease V77.91 Screening For Lipoid Disorders Office Visit 03/17/2004 2:00p [facility] S[place] Mart, 466.0 Bronchitis Acute Afnp-C Office Visit 01/26/2003 1:40p [facility] Levi Hollingsworth 611.72 Lump Or Mass Breiman, M.D. Breast Office Visit 12/29/2002 10:20a [facility] Office Levi Hollingsworth V70.0 Examination Kellie Bliss General Medical Routine AT Health Care Facility Office Visit 12/04/2002 11:30a [facility] Office Sussy Mart, V65.5 Person W/ Feared Afnp-C Complaint In Whom No Diagnosis Was Made Office Visit 09/10/2000 1:20p [facility] Office Levi Bliss M.D. Office Visit 05/14/2000 9:20a [facility] Office Levi Bliss M.D. Plan of Treatment 12/27/2018 - Lisa Vasquez, [id number] CoughComments:strongly suspect allergiesuse daily antihistamine, continue flonase, add cough suppressant ( delsym is great) and let me know how you do in a few daysR51 MvqypstiI94.2 Other seasonal allergic rhinitisAllComments:Medication Management Patient Understands medications he 's taking? Yes No Are there Barriers to Adherence? Yes No Has the patient been asked about herbal supplements and therapies, andOT meds? Yes No As always, we strongly encourage a healthy diet and making physical activity a part of your every day life. If you have questions about how or where to start, please contact the office.
--- NOTE | 2019-01-02 18:03 | ED ---
Abdominal Pain/Female - HPI Summary HPI Summary: patient reports no stool for 10 days has tried multiple otc remedies (see nsg note) and today spoke with PA at PCP office who suggested MOM and if no results in 6 hours go to ed---patient has had no fevers, nausea, vomiting or oozing soft stool. - History of Current Complaint Chief Complaint: EDConstipation Stated Complaint: CONSTIPATED PER PT Time Seen by Provider: 01/02/19 18:15 Hx Obtained From: Patient ?: No Onset/Duration: Gradual Onset, Lasting Days - 10, Still Present Timing: Constant Pain Intensity: 2 Pain Scale Used: 0-10 Numeric Location: Diffuse Radiates: No Aggravating Factor(s): Nothing Alleviating Factor(s): Nothing Associated Signs and Symptoms: Positive: Constipation Allergies/Adverse Reactions: Allergies Allergy/AdvReac Type Severity Reaction Status Date / Time Penicillins Allergy Rash Verified 01/02/19 16:30 PMH/Surg Hx/FS Hx/Imm Hx Previously Healthy: No Cardiovascular History: Reports: Hx Hypertension GI History: Reports: Hx Gastroesophageal Reflux Disease - on meds Musculoskeletal History: Reports: Hx Bursitis - left elbow, Hx Tendonitis - right elbow Sensory History: Reports: Hx Contacts or Glasses, Hx Glaucoma Denies: Hx Hearing Aid Opthamlomology History: Reports: Hx Contacts or Glasses, Hx Glaucoma - Cancer History Hx Chemotherapy: No Hx Radiation Therapy: No - Surgical History Surgery Procedure, Year, and Place: tonsillectomy 1948. tubal ligation 1974 Hx Anesthesia Reactions: No Infectious Disease History: No Infectious Disease History: Denies: Traveled Outside the [place] in Last 30 Days - Social History Occupation: Retired Lives: With Family Alcohol Use: Daily Alcohol Amount: 1 drink/day Substance Use Type: Reports: None Smoking Status (MU): Former Smoker Review of Systems Constitutional: Negative Eyes: Negative ENT: Negative Cardiovascular: Negative Respiratory: Negative Positive: Abdominal Pain - mild 2/10, Other - constipation Genitourinary: Negative Musculoskeletal: Negative Skin: Negative Neurological: Negative Psychological: Normal All Other Systems Reviewed And Are Negative: Yes Physical Exam Triage Information Reviewed: Yes Vital Signs On Initial Exam: Initial Vitals Temp Pulse Resp BP Pulse Ox 98.5 F 77 18 190/75 97 01/02/19 16:28 01/02/19 16:28 01/02/19 16:28 01/02/19 16:28 01/02/19 16:28 Vital Signs Reviewed: Yes Appearance: Positive: Well-Appearing, No Pain Distress, Well-Nourished Skin: Positive: Warm, Skin Color Reflects Adequate Perfusion Head/Face: Positive: Normal Head/Face Inspection Eyes: Positive: Normal, EOMI, KOBE, Conjunctiva Clear. Negative: Discharge ENT: Positive: Normal ENT inspection, Hearing grossly normal. Negative: Trismus , Muffled voice, Hoarse voice Neck: Positive: Supple, Nontender Respiratory/Lung Sounds: Positive: Clear to Auscultation, Breath Sounds Present Cardiovascular: Positive: Normal, RRR, S1, S2 Abdomen Description: Positive: No Organomegaly, Soft. Negative: CVA Tenderness (R), CVA Tenderness (L), Guarding, McBurney's Point Tenderness, Peritoneal Signs , Pulsatile Mass Bowel Sounds: Positive: Present Musculoskeletal: Positive: Normal, Strength/ROM Intact Neurological: Positive: Normal, Sensory/Motor Intact, Alert, Oriented to Person Place, Time, CN Intact II-III Psychiatric: Positive: Normal AVPU Assessment: Alert - Shara Coma Scale Best Eye Response: 4 - Spontaneous Best Motor Response: 6 - Obeys Commands Best Verbal Response: 5 - Oriented Coma Scale Total: 15 Diagnostics - Vital Signs Vital Signs Temp Pulse Resp BP Pulse Ox 01/02/19 16:28 98.5 F 77 18 190/75 97 - Laboratory Lab Statement: Any lab studies that have been ordered have been reviewed, and results considered in the medical decision making process. Re-Evaluation - Re-Evaluation First Eval Change: Improved - large amount of stool after enema, patient feels much better- ---digital exam preformed no additional stool noted- Abdominal Pain Fem Course/Dx - Course Course Of Treatment: increase fluids, colace 100 mg po bid and miralax 17 gm qd prn--hold for loose stool---return to ed or follow with pcp as needed - Diagnoses Provider Diagnoses: Constipation in female Discharge - Sign-Out/Discharge Documenting (check all that apply): Patient Departure Patient Received Moderate/Deep Sedation with Procedure: No - Discharge Plan Condition: Stable Disposition: HOME Prescriptions: Docusate CAP* [Colace Cap*] 100 mg PO BID PRN #30 cap PRN Reason: Constipation Polyethylene Glycol 3350 [Miralax] 17 gm PO DAILY PRN #14 pkt PRN Reason: constipation Patient Education Materials: Constipation (ED), High Fiber Diet (ED), Hypertension (ED) Referrals: Levi Bliss MD [Primary Care Provider] - 1 Week - Billing Disposition and Condition Condition: STABLE Disposition: Home
[2019-01-02] MEDS ORDERED: Sodium Phosphate ADULT ENEMA* 118 ml bottle PR ONE (18:55)
[2019-01-02 19:39] LABS: Urine Appearance Clear; Urine Bilirubin Negative (Negative); Urine Blood Negative (Negative); Urine Color Yellow; Urine Glucose Negative (Negative); Urine Ketones Negative (Negative); Urine Nitrite Negative (Negative); Urine Protein Negative (Negative); Urine Specific Gravity 1.006 (1.010-1.030); Urine Urobilinogen Negative (Negative)
[2019-01-02 20:33] VITALS: BP 169/81
== END 2019-01-02 20:33 | disposition home or self-care (01) ==
LOC: ED 16:22
DX: K59.00 Constipation, unspecified (principal); K21.9 Gastro-esophageal reflux disease without esophagitis; Z88.0 Allergy status to penicillin; Z87.891 Personal history of nicotine dependence
CPT/HCPCS: 74019; 81003; 99282; A9270-GY

== ENCOUNTER 2019-09-19 08:15 | Emergency (ER) | payer MEDICARE ==
--- NOTE | 2019-09-19 09:26 | UC ---
Respiratory Complaint HPI - HPI Summary HPI Summary: CHIEF COMPLAINT: shortness of breath, cough HPI: This is a 79 year old female with complaints of shortness of breath, cough, weight gain of 3-5 pounds, ankle/leg transient swelling Description of Pain: no chest pain VITAL SIGNS REVIEWED. Within normal limits unless noted here. BP 220/92; on lisinopril NURSES NOTE REVIEWED. " Pt c/o cold-like sx for the past 8 days. Pt c/o chest congestion, mild SOB, that started a few days ago - not getting better. Pt also c/o ankle swelling that was noticed yesterday - also noticed sudden weight increase. " - History of Current Complaint Chief Complaint: UCGeneralIllness Stated Complaint: COUGH,HEADACHE,SORE THROAT,CHEST CONGESTION Time Seen by Provider: 09/19/19 09:16 Hx Obtained From: Patient Pain Intensity: 0 - Allergies/Home Medications Allergies/Adverse Reactions: Allergies Allergy/AdvReac Type Severity Reaction Status Date / Time Penicillins Allergy Rash Verified 09/19/19 08:51 Home Medications: Home Medications Fluticasone NASAL SPRAY 50MCG* [Flonase NASAL SPRAY 50MCG*] 2 spray BOTH NARES DAILY 09/19/19 [History Confirmed 09/19/19] Lisinopril TAB* [Prinivil TAB*] 5 mg PO DAILY 09/19/19 [History Confirmed ] Travoprost [Travatan Z] 2.5 ml OP DAILY 09/19/19 [History Confirmed 09/19/19] PMH/Surg Hx/FS Hx/Imm Hx - Additional Past Medical History Additional PMH: Hx of glaucoma; tonsillectomy. Previously Healthy: No Cardiovascular History: Hypertension - Surgical History Surgical History: Yes Surgery Procedure, Year, and Place: tonsillectomy 1948. tubal ligation 1973 - Family History Known Family History: Positive: Hypertension - Social History Occupation: Works From/At Home - lives with Alcohol Use: Occasionally Alcohol Amount: 1 drink/day Substance Use Type: None Smoking Status (MU): Never Smoked Tobacco Review of Systems All Other Systems Reviewed And Are Negative: Yes Constitutional: Positive: Negative Respiratory: Positive: Shortness Of Breath - yesterday, Cough Cardiovascular: Positive: Other - leg swelling yesterday. Negative: Chest Pain Gastrointestinal: Positive: Negative Is Patient Immunocompromised?: No Physical Exam - Summary Physical Exam Summary: Appearance: The patient is well-appearing, is in no pain or distress, and is well-nourished. Eyes: Conjunctiva are clear. Pupils are equal and reactive to light and accommodation. Extra ocular muscle movement is intact. ENT: The hearing is grossly normal, the pharynx is normal, and the TMs are normal. There is no muffled or hoarse voice. No stridor. Neck: The neck is supple and there is no lymphadenopathy. Respiratory: The chest is non-tender to palpation and without crepitus. The lungs few rales on the right base. There is no respiratory distress. No wheezesor rhonchi. Cardiovascular: Heart sounds reveal a regular rate and rhythm. There are no clicks, rubs or murmurs. There are no carotid bruits or thrills. Circulation is grossly intact. Abdomen: The abdomen is soft and nontender. There is no organomegaly. Bowel sounds are present and within normal limits. No point tenderness at McBurneys point. No CVA tenderness. Musculoskeletal: Strength is intact. The patient moves all extremities. No pedal edema. Neurological: The patient is alert. Motor and sensory are examination grossly intact. Speech is normal. Psychological: The patient displays age appropriate behavior, and is conversant. GCS=15. Skin: Negative for rashes. EKG (by ): Sinus tach, 100; Non-specific ST T changes; left atrial enlargement. X RAY: interstitial pulmonary edema; blunting both costophrenic angles c/w CHF Triage Information Reviewed: Yes Vital Signs: Initial Vital Signs Temp 98.7 F 09/19/19 08:53 Pulse 87 09/19/19 08:53 Resp 16 09/19/19 08:53 BP 0/0 09/19/19 08:53 Pulse Ox 98 09/19/19 08:53 Respiratory Course/Dx - Course Course Of Treatment: Healthy 79-year-old female who felt well this week and then noted leg swelling and weight gain. She comes to the urgent care center complaining of cough, some shortness of breath, anxiety, leg swelling and weight gain. In the urgent care center the patient states that she has had transient swelling of her ankles which look to her swollen mildly today but not as much as yesterday. She also states that she has gained between 3 and 5 pounds. The patient does not complain of fever. The patient has a history of hypertension and is on lisinopril. Physical examination shows a patient who is comfortable and does not appear short of breath with a pulse ox of 98 and a blood pressure of 234/ 102. The blood pressure was repeated. It was 220/92. Faint rales were heard in the right base. Pedal edema was not appreciated. Chest x-ray showed blunting of both costophrenic angles with mild pulmonary edema. EKG showed no acute ischemia. Rate of 100. There was nonspecific ST-T changes and a sinus tach of 100. My diagnosis is new congestive heart failure of unclear etiology. I recommended that the patient go to the emergency department for further evaluation and treatment as needed. She will go by ambulance. Chest x ray: mild interstitial pulmonary edema and small pleural effusions. - Differential Dx/Diagnosis Differential Diagnosis/HQI/PQRI: Bronchitis, CHF, Pulmonary Edema, Lower Resp Infection Provider Diagnosis: Pulmonary edema, Pleural effusion Discharge ED - Sign-Out/Discharge Documenting (check all that apply): Patient Departure All imaging exams completed and their final reports reviewed: Yes - in the mid Lasix - Discharge Plan Condition: Stable Disposition: TRANS HIGHER LVL OF CARE FAC Referrals: Levi Bliss MD [Primary Care Provider] - Additional Instructions: WE DISCUSSED: we are sending you to the ED to evaluate the WATER ON YOUR LUNGS and your ELEVATED BLOOD PRESSURE. YOUR DIAGNOSIS IS: NEW CONGESTIVE HEART FAILURE, WATER ON THE LUNGS, HIGH BLOOD PRESSURE - Billing Disposition and Condition Condition: STABLE Disposition: Trans Higher Lvl of Care Fac
[2019-09-19 11:02] VITALS: BP 238/98
== END 2019-09-19 11:20 | disposition short-term general hospital (02) ==
LOC: UCEAST 08:15
DX: J81.1 Chronic pulmonary edema (principal); J90 Pleural effusion, not elsewhere classified; I50.9 Heart failure, unspecified; I10 Essential (primary) hypertension; Z79.899 Other long term (current) drug therapy; Z88.0 Allergy status to penicillin
CPT/HCPCS: 71046; 93005; 99204; G0463

== ENCOUNTER 2019-09-19 11:44 | Inpatient (IN) | payer MEDICARE ==
--- NOTE | 2019-09-19 11:54 | ED ---
Complex/Multi-Sys Presentation - HPI Summary HPI Summary: 79 year old F arriving via ambulance from [facility] to [facility] complains of sinus congestion and intermittent headache x8 days, bilateral swelling of ankle x1 day, chest congestion since last night, shortness of breath starting today. She has a headache currently. This is the third time this year she's had these symptoms. Went to [facility] today where she had CXR done which showed #. Stigmata of obstructive lung disease. #. No compelling evidence for pneumonia. # . Mild interstitial pulmonary edema. Associated small dependent pleural effusions. There was concern for new onset CHF so she was referred to the ED for further evaluation and workup. Hx hypertension for which she takes lisinopril. Noted to be hypertensive at [facility] and in ambulance. No chest pain, chest pressure, fever, n/v/d, abdominal pain, bilateral calf pain. Symptoms aggravated by nothing. Symptoms alleviated by nothing. No cardiac hx. No hx diabetes, DVT, PE. Medications reviewed. Allergies noted. Home Medications Medication Instructions Recorded Confirmed Type Fluticasone NASAL SPRAY 50MCG* 2 spray BOTH NARES DAILY 09/19/19 09/19/19 History [Flonase NASAL SPRAY 50MCG*] Lisinopril TAB* [Prinivil TAB*] 5 mg PO DAILY 09/19/19 09/19/19 History Travoprost [Travatan Z] 2.5 ml OP DAILY 09/19/19 09/19/19 History - History Of Current Complaint Hx Obtained From: Patient, EMS, Medical Records Onset/Duration: Lasting Days, Still Present Timing: Constant, Intermittent, Lasting: Aggravating Factor(s): Nothing Alleviating Factor(s): Nothing Associated Signs And Symptoms: Positive: Other - NEG: chest pain, chest pressure , fever, n/v/d, abdominal pain, bilateral calf pain - Allergies/Home Medications Allergies/Adverse Reactions: Allergies Allergy/AdvReac Type Severity Reaction Status Date / Time Penicillins Allergy Rash Verified 09/19/19 08:51 Home Medications: Home Medications Fluticasone NASAL SPRAY 50MCG* [Flonase NASAL SPRAY 50MCG*] 2 spray BOTH NARES DAILY 09/19/19 [History Confirmed 09/19/19] Lisinopril TAB* [Prinivil TAB*] 5 mg PO DAILY 09/19/19 [History Confirmed ] Travoprost [Travatan Z] 2.5 ml OP DAILY 09/19/19 [History Confirmed 09/19/19] PMH/Surg Hx/FS Hx/Imm Hx Endocrine/Hematology History: Denies: Hx Diabetes Cardiovascular History: Reports: Hx Hypertension Denies: Hx Deep Vein Thrombosis Respiratory History: Denies: Hx Asthma, Hx Pulmonary Embolism GI History: Reports: Hx Gastroesophageal Reflux Disease - on meds Musculoskeletal History: Reports: Hx Bursitis - left elbow, Hx Tendonitis - right elbow Sensory History: Reports: Hx Contacts or Glasses, Hx Glaucoma Denies: Hx Hearing Aid Opthamlomology History: Reports: Hx Contacts or Glasses, Hx Glaucoma - Cancer History Hx Chemotherapy: No Hx Radiation Therapy: No - Surgical History Surgery Procedure, Year, and Place: tonsillectomy 1948. tubal ligation 1973 Hx Anesthesia Reactions: No - Family History Known Family History: Positive: Hypertension - Social History Alcohol Use: Occasionally Alcohol Amount: 1 drink/day Substance Use Type: Reports: None Hx Tobacco Use: No Smoking Status (MU): Never Smoked Tobacco Review of Systems Negative: Fever Positive: Other - congestion Cardiovascular: Negative - chest pressure Negative: Chest Pain Positive: Shortness Of Breath Negative: Abdominal Pain, Vomiting, Diarrhea, Nausea Musculoskeletal: Negative - bilateral calf pain Positive: Other - bilateral swelling of ankle Positive: Headache All Other Systems Reviewed And Are Negative: Yes Physical Exam - Summary Physical Exam Summary: Constitutional: Well-developed, Well-nourished, Alert. (-) Distressed Skin: Warm, Dry HENT: Normocephalic; Atraumatic Eyes: Conjunctiva normal Neck: Musculoskeletal ROM normal neck. (-) JVD, (-) Stridor, (-) Tracheal deviation Cardio: Rhythm regular, rate normal, Heart sounds normal; Intact distal pulses; The pedal pulses are 2+ and symmetric. Radial pulses are 2+ and symmetric. (-) Murmur Pulmonary/Chest wall: Effort normal. (-) Respiratory distress, (-) Wheezes, (-) Rales Abd: Soft, (-) tenderness, (-) Distension, (-) Guarding, (-) Rebound Musculoskeletal: (-) Edema Lymph: (-) Cervical adenopathy Neuro: Alert, Oriented x3 Psych: Mood and affect Normal Triage Information Reviewed: Yes Vital Signs Reviewed: Yes Procedures - Sedation Patient Received Moderate/Deep Sedation with Procedure: No Diagnostics - Laboratory Result Diagrams: 09/19/19 12:20 09/19/19 12:20 Lab Statement: Any lab studies that have been ordered have been reviewed, and results considered in the medical decision making process. - Radiology CXR done at [facility] Radiology Interpretation Completed By: Radiologist - #. Stigmata of obstructive lung disease. #. No compelling evidence for pneumonia. #. Mild interstitial pulmonary edema. ED physician has reviewed this imaging report. - EKG 1024 Cardiac Rate: Tachycardia - 100 BPM EKG Rhythm: Sinus Tachycardia Summary of EKG Findings: Non specific ST-T wave changes. ED physician has reviewed and interpreted this EKG. Re-Evaluation - Re-Evaluation First Eval Re-Evaluation Time: 12:55 Comment: aware of troponin 0.05 Second Eval Re-Evaluation Time: 13:10 Comment: patient agrees to admission Complex Multi-Symp Course/Dx Course Of Treatment: 79 y/o F coming from [facility] presents with sinus congestion and intermittent headache x8 days, bilateral swelling of ankle x1 day , chest congestion since last night, shortness of breath starting today. Went to [facility] today where she had CXR done which showed #. Stigmata of obstructive lung disease. #. No compelling evidence for pneumonia. #. Mild interstitial pulmonary edema. Associated small dependent pleural effusions. An EKG done at [facility] shows sinus tachycardia [address]- T wave changes. There was concern for new onset CHF so she was referred to the ED for further evaluation and workup. Hx hypertension for which she takes lisinopril. Noted to be hypertensive at [facility] and in ambulance. No cardiac hx. No hx diabetes, DVT, PE. Physical exam unremarkable. Bloodwork results with no significant abnormalities except for troponin 0.05 and BNP 390. Spoke with Dr. Akhtar. She agrees to admit patient. - Diagnoses Provider Diagnoses: New onset of congestive heart failure, Hypertension - Physician Notifications Discussed Care Of Patient With: Apoorva Akhtar Time Discussed With Above Provider: 13:10 Instructed by Provider To: Admit As Inpatient Discharge ED - Sign-Out/Discharge Documenting (check all that apply): Patient Departure - Discharge Plan Condition: Stable Disposition: ADMITTED TO [facility] Referrals: Levi Bliss MD [Primary Care Provider] - - Billing Disposition and Condition Condition: STABLE Disposition: Admitted to [facility] - Attestation Statements Document Initiated by Medinaibigor: Yes Documenting Scribe: Becky Mckeon Provider For Whom Esther is Documenting (Include Credential): Clinton Paz DO Scribigor Attestation: IBecky, scribed for Clinton Paz DO on 09/19/19 at 1348. Scribe Documentation Reviewed: Yes Provider Attestation: The documentation as recorded by the medinaibeBecky accurately reflects the service I personally performed and the decisions made by , Clinton Paz DO Status of Scribigor Document: Viewed
[2019-09-19 12:29] LABS: ABS Eosinophils 0.1 10^3/ul (0-0.6); ABS Lymphocytes 1.4 10^3/ul (1.0-4.8); ABS Monocytes 0.4 10^3/ul (0-0.8); ABS Neutrophils 5.3 10^3/ul (1.5-7.7); Eosinophil % 1.8 %; Hematocrit 34 % (35-47); Hemoglobin 11.9 g/dL (12.0-16.0); Lymphocyte % 19.2 %; Mean Corpuscular HGB Conc 35 g/dL (31-36); Mean Corpuscular Hemoglobin 30 pg (27-31); Mean Corpuscular Volume 88 fL (80-97); Mean Platelet Volume 7.9 fL (7.4-10.4); Platelet Count 237 10^3/uL (150-450); Red Cell Distribution Width 13 % (10-15); White Blood Count 7.3 10^3/uL (3.5-10.8)
[2019-09-19 12:49] LABS: ALT 14 U/L (7-52); AST 19 U/L (13-39); Albumin 4.4 g/dL (3.2-5.2); Albumin/Globulin Ratio 1.8 (1-3); Alkaline Phosphatase 68 U/L (34-104); Anion Gap 8 mmol/L (2-11); BUN/Creatinine Ratio 14.3 (8-20); Blood Urea Nitrogen 13 mg/dL (6-24); CO2 Carbon Dioxide 27 mmol/L (22-32); Calcium 9.6 mg/dL (8.6-10.3); Chloride 107 mmol/L (101-111); EGFR African American 72.5 (>60); EGFR Non-African American 59.9 (>60); Globulin 2.5 g/dL (2-4); Glucose 97 mg/dL (70-100); Potassium 3.9 mmol/L (3.5-5.0); Sodium 142 mmol/L (135-145); Total Protein 6.9 g/dL (6.4-8.9)
[2019-09-19 12:52] LABS: Troponin I 0.05 ng/mL (<0.03)
[2019-09-19] MEDS ORDERED: Nitro 2% OINT* (Nitroglycerin) 1 INCH/PAK PAK TOPICAL ONE (13:12)
[2019-09-19] MEDS ORDERED: Labetalol IV* 5 MG/ML 20 ML VIAL IV PUSH ONE (13:51)
[2019-09-19] MEDS ORDERED: Ondansetron INJ* 2 MG/ML VIAL IV PRN (13:52)
[2019-09-19] MEDS ORDERED: hydrALAZINE IV* 20 MG/ML VIAL IV SLOW PU PRN (13:58)
[2019-09-19] MEDS ORDERED: Enalaprilat IV* 1.25 MG/ML 1 ML VIAL (1.25 MG) IV PRN (14:11)
[2019-09-19 14:20] LABS: Urine Appearance Clear; Urine Bilirubin Negative (Negative); Urine Blood Negative (Negative); Urine Color Straw; Urine Glucose Negative (Negative); Urine Ketones Trace (Negative); Urine Nitrite Negative (Negative); Urine Protein 2+(100 mg/dL) (Negative); Urine Specific Gravity 1.006 (1.010-1.030); Urine Urobilinogen Negative (Negative)
[2019-09-19 14:21] LABS: Urine Bacteria Absent (Absent); Urine Red Blood Cell Trace(0-2/hpf) (Absent); Urine Squamous Epithelial Cell Present (Absent); Urine White Blood Cell Trace(0-5/hpf) (Absent)
[2019-09-19 14:43] LABS: TSH (Thyroid Stimulating Horm) 2.25 mcIU/mL (0.34-5.60)
[2019-09-19] MEDS: Lisinopril TAB* 10 MG PO SCH (15:04)
[2019-09-19] MEDS: Acetaminophen TAB* 325 MG PO PRN ×2 (15:05→21:27)
[2019-09-19] MEDS: Chlorthalidone TAB* 50 MG PO SCH (15:05)
[2019-09-19] MEDS: Enoxaparin(*) 40 MG/0.4 ML SYR SUBCUT SCH (15:05)
[2019-09-19 16:02] LABS: Troponin I 0.12 ng/mL (<0.03)
--- NOTE | 2019-09-19 19:00 | HP ---
CC: Dr. Levi Bliss * ADMISSION HISTORY AND PHYSICIAN: DATE OF ADMISSION: 09/19/19 PRIMARY CARE PROVIDER: Dr. Levi Bliss. MY ATTENDING WHILE IN THE HOSPITAL: Dr. Apoorva Akhtar.* (DICTATED BY MARIBELL BOYD) CHIEF COMPLAINT: Upper respiratory symptoms, lower extremity swelling. HISTORY OF PRESENT ILLNESS: Ms. Haider is a 79-year-old female with past medical history significant for hypertension and GERD, who presents to the emergency department after she has had an upper respiratory infection with nasal congestion and a dry cough for 8 days, which has not been getting better. This is what prompted her to go to the urgent care in conjunction with lower extremity edema, which she has never had before. The patient states that her blood pressure is usually 130/70 but she has not been following with her primary too much for this recently. At urgent care, the patient was found to have a blood pressure of approximately 200/100 with chest x-ray showing signs of mild fluid overload. The patient was not hypoxic. The patient feels that her lower extremity swelling has improved since yesterday. The patient has had no chest pain. The patient is not dyspneic on exertion. The patient cannot endorse orthopnea, does not lay flat for significant period of time. The patient has no pain with urination. No other pain. The patient has had a recent increase in her stress level having to take care of her at home. The patient denies fevers, chills, other sick contacts, nausea, vomiting, abdominal pain, diarrhea. The patient did not have any other recent changes to her medications. The patient did not take [id number] stimulant decongestants or NSAIDs for her upper respiratory symptoms. The patient in the emergency department had relatively normal lab work except for a slightly elevated troponin of 0.5 and elevated BNP of 390. No known baseline due to concern for acute CHF and hypertensive emergency, we were asked to evaluate the patient for admission to the hospital. PAST MEDICAL HISTORY: Hypertension, glaucoma, allergies, GERD. PAST SURGICAL HISTORY: None. MEDICATIONS: 1. Lisinopril 5 mg p.o. daily. 2. Colace 100 mg p.o. daily as needed. 3. Travatan eye drops 2.5 mL daily. 4. Fluticasone nasal spray, 2 sprays both nares daily. 5. Famotidine unknown dose twice daily. ALLERGIES: PENICILLIN. FAMILY HISTORY: The patient's father at age 85 with CHF. The patient's mother at age 80 of sepsis and had severe Alzheimer's. The patient has 2 siblings, 1 of whom of Alzheimer's, 1 of whom is alive and well. SOCIAL HISTORY: The patient has never smoked. The patient drinks 2 pints of craft beer on Saturday's. The patient uses occasional CBD oil but uses no illicit drugs. The patient worked in the home, has and has 2 children. The patient's surrogate decision maker may be her , Dion Haider. REVIEW OF SYSTEMS: A 10-point review of systems was reviewed and is negative except as above in the HPI. PHYSICAL EXAMINATION GENERAL: The patient is a 79-year-old female, who appears her stated age, sitting in bed, in no acute distress. VITAL SIGNS: At the time of evaluation, temperature 98.8, pulse rate 72, respiratory rate 17, oxygen saturation 98% on room air, blood pressure 204/76. HEENT: Head: Normocephalic, atraumatic. Sclerae anicteric. No conjunctival injection. Nasal mucosa dry. Oral mucosa dry. No pharyngeal erythema, discharge, or exudate. NECK: Supple, nontender. No lymphadenopathy. No carotid bruits auscultated. No JVD. RESPIRATORY: Clear to auscultation bilaterally. No wheezes, rales or rhonchi. Good air exchange bilaterally. CARDIAC: Regular rate and rhythm. No clicks, murmurs, gallops or rubs. Pulses are 2 + in the bilateral dorsalis pedis, posterior tibial, and radial areas. Trace bilateral lower extremity edema noted. ABDOMEN: Soft, nontender, nondistended. Bowel sounds present and normoactive in all 4 quadrants. No hepatosplenomegaly. No abdominal bruits auscultated. No hepatojugular reflux. GENITOURINARY: No suprapubic or CVA tenderness. NEURO: Cranial nerves II through XII intact. No focal deficits. Alert and oriented x3. Slight headache. SKIN: Clean, dry, and intact. No rashes. DIAGNOSTIC STUDIES/LAB DATA: White blood cell count 7.3, hemoglobin 11.9, platelet count 237. Sodium 142, potassium 3.9, chloride 107, carbon dioxide 27 , anion gap 8, BUN 13, creatinine 0.91, glucose 97, calcium 9.6. Bilirubin 0.6 , AST 19, ALT 14, alkaline phosphatase 68. Troponin I 0.05. BNP 390. Protein 6.9, albumin 4.4, globulin 2.5. TSH is pending. Studies from urgent care: EKG showed normal sinus rhythm, normal axis, no ST segment elevation or depression. No hypertrophy. Possible left atrial enlargement. Rate of 100, QTc not calculated but does not appear to be a prolonged, no prior compared to. Chest x-ray read as stigmata of obstructive lung disease. No compelling evidence of pneumonia. Mild interstitial pulmonary edema as well as small dependent pleural effusion. ASSESSMENT AND PLAN/IMPRESSION: Ms. Haider is a 79-year-old female with past medical history significant for hypertension, glaucoma, who presented to the emergency department with 8 days of cold symptoms and an instantly found severely elevated blood pressure with signs of acute heart failure, who was admitted to the hospital for hypertensive emergency and evaluation of acute heart failure. Hypertensive emergency, acute heart failure, unknown ejection fraction. The patient has signs of fluid overload on her chest x-ray though these are not evident on her clinical exam. The patient has a blood pressure of greater than 200/100 with a MAP around 120 at this time. The patient received nitroglycerin in the emergency department, which did not decrease this significantly. The patient will be continued on nitroglycerin and the patient will be given labetalol 1 time to decrease her ejection fraction. She was monitored closely for worsening in her heart failure symptoms but appeared to be mild at this time. The patient will also have enalapril available for blood pressure control. The patient will have TSH checked. The patient is not taking medications that would increase her blood pressure such as stimulant decongestants and has not been taken off any medications that would cause rebound. The patient did not have a TSH check. She has no history of thyroid disease. No signs of hyperthyroidism on exam, however, this could be a cause of secondary hyperthyroidism will be investigated given the patient is only on 1 medication, did not show signs of persistent hypertension at this time. The patient will not have further evaluation for causes secondary to hypertension. The patient has signs of end organ damage with elevated troponin and elevated BNP. Urinalysis will also be checked though her creatinine is normal at this time and not significantly increased from her known baseline. The patient did not have any chest pain or chest x-ray does not show signs of significant left ventricular strain nor acute coronary syndrome. The patient will transitioned on to long-acting medications for her blood pressure. Her lisinopril will be increased and she will be introduced with chlorthalidone to help with both her fluid overload and her long-acting blood pressure management. The patient's troponin will be trended. She will have an echocardiogram tomorrow to assess her ejection fraction and predisposition for heart failure with preserved ejection fraction. Hypertension: Management as above. Glaucoma: Continue eye drops. Gastroesophageal reflux disease: Continue the patient's famotidine. DVT prophylaxis: Lovenox subcutaneously. FEN: The patient will have regular unrestricted diet. Fluids not indicated at this time. TIME SPENT: Approximately 60 minutes was spent on the admission of this patient , 30 of which was spent [id number] with the patient obtaining history and physical and discussing treatment plan. This plan was discussed with my attending Dr. Apoorva Akhtar, and she is in agreement. MARIBELL BOYD [id number]/CPS #: [id number] MTDD
[2019-09-19] MEDS: Latanoprost 0.005%* 2.5 ml BTL BOTH EYES SCH (19:41)
[2019-09-19] MEDS: Docusate CAP* 100 MG PO SCH (21:27)
[2019-09-19] MEDS: Fluticasone NASAL SPRAY 50MCG* 16 gm SPRAY BTL BOTH NARES SCH (21:28)
[2019-09-20 06:19] LABS: ABS Eosinophils 0.2 10^3/ul (0-0.6); ABS Lymphocytes 2.3 10^3/ul (1.0-4.8); ABS Monocytes 0.4 10^3/ul (0-0.8); ABS Neutrophils 3.9 10^3/ul (1.5-7.7); Eosinophil % 3.6 %; Hematocrit 27 % (35-47); Hemoglobin 9.5 g/dL (12.0-16.0); Lymphocyte % 33.4 %; Mean Corpuscular HGB Conc 35 g/dL (31-36); Mean Corpuscular Hemoglobin 31 pg (27-31); Mean Corpuscular Volume 88 fL (80-97); Mean Platelet Volume 7.5 fL (7.4-10.4); Platelet Count 207 10^3/uL (150-450); Red Blood Count 3.11 10^6 /uL (3.70-4.87); Red Cell Distribution Width 13 % (10-15); White Blood Count 6.9 10^3/uL (3.5-10.8)
[2019-09-20 06:40] LABS: BUN/Creatinine Ratio 16.3 (8-20); Calcium 8.4 mg/dL (8.6-10.3); EGFR African American 62.2 (>60); EGFR Non-African American 51.4 (>60); Magnesium 2.2 mg/dL (1.9-2.7); Potassium 2.9 mmol/L (3.5-5.0)
[2019-09-20] MEDS: KCL 20 MEQ/100 ML IVPREMIX* 20 MEQ/100 ML BAG IV SCH ×2 (07:51→10:15)
[2019-09-20] MEDS: Chlorthalidone TAB* 50 MG PO SCH (07:51)
[2019-09-20] MEDS: Lisinopril TAB* 10 MG PO SCH (07:51)
[2019-09-20] MEDS: Famotidine TAB* 20 MG PO SCH (07:51)
[2019-09-20] MEDS: Potassium Chlor TAB* 20 MEQ TAB.ER PO SCH ×2 (07:51→12:22)
--- NOTE | 2019-09-20 09:28 | ECHO ---
*[facility]* [place] [address] Fax #: [phone] Transthoracic Echocardiogram Patient: Amber Haider : 1940 Study Date: 09/20/2019 Age: 79 Gender: F HR: 65 bpm Height: 62 in /157.5 cm BSA: 1.54 m^2 Weight: 119.8 lb /54.4 kg BMI: 21.9 kg/m^2 *Political Advisor: * Marisa Virk [facility] *Referring Physician: * Cordell Stokes *Reading Physician: * Win Wilburn MD Indications: Congestive Heart Failure. History: Risk factors: Hypertension. Conclusions Summary: - Left ventricle: The cavity size is mildly reduced. Wall thickness is mildly increased. Systolic function is normal. The estimated ejection fraction is 70-75%. Wall motion is normal; there are no regional wall motion abnormalities. - Right ventricle: The cavity size is normal. Systolic function is normal. - Left atrium: The atrium is mildly to moderately dilated. - Pulmonary arteries: Systolic pressure is within the normal range. - No functionally significant valvular abnormalities noted. Recommendations: None prior for comparison at time of interpretation. Study data: Transthoracic echocardiogram. Procedure: Transthoracic echocardiography was performed. Image quality was good. Complete 2D, spectral Doppler, and color flow Doppler. Location: Bedside. Patient status: Inpatient. Patient room number: 433. Rhythm: Normal sinus rhythm. Findings Left ventricle: The cavity size is mildly reduced. Wall thickness is mildly increased. Systolic function is normal. The estimated ejection fraction is 70-75%. Wall motion is normal; there are no regional wall motion abnormalities. Left ventricular diastolic function parameters are normal for the patient's age. Right ventricle: The cavity size is normal. Systolic function is normal. Left atrium: The atrium is mildly to moderately dilated. Right atrium: The atrium is at the upper limits of normal in size. Mitral valve: The leaflets are mildly thickened. There is no evidence of stenosis. There is mild regurgitation. Aortic valve: Not well visualized. The annulus is mildly calcified. The leaflets are mildly calcified. There is no evidence of stenosis. There is no significant regurgitation. Tricuspid valve: The leaflets are normal thickness. There is no evidence of stenosis. There is trace regurgitation. Pulmonic valve: The leaflets are normal thickness. There is no evidence of stenosis. There is no significant regurgitation. Aorta: The aortic root appears normal. The aortic arch appears normal. Pericardium: A prominent pericardial fat pad is present. There is no significant pericardial effusion. Pulmonary arteries: Systolic pressure is within the normal range. Systemic veins: Inferior vena cava: The vessel is dilated. There is (>= 50%) respiratory change in the IVC dimension. Measurements Left ventricle Value Ref Mitral valve Value Ref SADI, LAX (L) 3.7 cm 3.8 - 5.2 Peak E 1.33 m/sec ------- ESD, LAX (L) 2.1 cm 2.2 - 3.5 Peak A 0.71 m/sec ------- FS, LAX 45 % 27 - 45 Decel time 185 ms ------- PW, ED, LAX (H) 1.1 cm 0.6 - 0.9 PHT 76 ms ------- E', lat karime, TDI (L) 6.1 cm/sec >=10.0 Mean grad, D 2.0 mm Hg ------- E/e', lat karime, 22 Peak grad, D 8.0 mm Hg --- ---- TDI Peak E/A ratio 1.9 ------- E', med karime, TDI 7.5 cm/sec >=7.0 MVA, PHT 2.9 cm^2 ------- E/e', med karime, 18 TDI Pulmonic valve Value Ref E', avg, TDI 6.8 cm/sec Peak v, S 0.81 m/sec --- ---- E/e', avg, TDI (H) 20 <=14 Peak grad, S 3.0 mm Hg ------- LVOT Value Ref Tricuspid valve Value Ref Diam, S 2.00 cm TR peak v 2.6 m/sec <=2.8 Area 3.1 cm^2 Peak RV-RA grad, S 27 mm Hg ------- Peak mook, S 1.3 m/sec VTI, S 33.0 cm Aortic root Value Ref Peak grad, S 7 mm Hg Root diam 2.7 cm <3.8 Mean grad, S 4 mm Hg Root max diam/bsa, 1.8 cm/m^2 1.4 - SV 103 ml ED 2.2 Ventricular septum Value Ref Ascending aorta Value Ref IVS, ED (H) 1.4 cm 0.6 - 0.9 AAo AP diam, S 2.1 cm ------- AAo AP diam/bsa, S 1.4 cm/m^2 ------- Right ventricle Value Ref SADI, LAX 2.1 cm Aortic arch Value Ref SADI minor ax, A4C 2.8 cm 1.9 - 3.5 Arch diam 2.7 cm ------- mid Arch diam/bsa 1.8 cm/m^2 ------- Pressure, S 30 mm Hg Decending aorta Value Ref Left atrium Value Ref Monika peak mook 0.57 m/sec ------- AP dim, ES (H) 4.10 cm 2.70 - 3.80 Pulmonary artery Value Ref ML dim, A4C 4.8 cm Pressure, S 27.0 mm Hg ------- SI dim, A4C 5.9 cm Vol/bsa, ES, A/L (H) 42 ml/m^2 16 - 34 Inferior vena cava Value Ref Diam 2.2 cm ------- Right atrium Value Ref SI dim, ES 5.1 cm 3.4 - 5.3 Pulmonary veins Value Ref ML dim, ES, A4C 4.2 cm 2.6 - 4.4 Peak v, S 0.63 m/sec ------- Estimated RAP 3 mm Hg Peak v, D 0.4 m/sec ------- Peak S/D ratio 1.6 ------- Aortic valve Value Ref A rev duration 114 ms ------- Karime diam, ED 2.0 cm Peak v, S 1.71 m/sec VTI, S 42.0 cm Mean grad, S 6.0 mm Hg Peak grad, S 12.0 mm Hg LVOT/AV, VTI 0.8 ratio LINDA, VTI 2.50 cm^2 LINDA, Vmax 2.40 cm^2 Legend: (L) and (H) bonifacio values outside specified reference range. Prepared and electronically signed by Win Wilburn MD 09/20/2019 09:28
[2019-09-20 10:10] LABS: HDL Cholesterol 41.4 mg/dL
[2019-09-20] MEDS: Spironolactone TAB* 25 MG PO SCH (10:15)
--- NOTE | 2019-09-20 11:15 | PN ---
Subjective Date of Service: 09/20/19 Interval History: Patient stated that she felt just fine, had no complaints. Denied dizziness, lightheadedness, chest pain, palpitations, headaches, abdominal pain, nausea, vomiting or issues moving bowels or bladder. Family History: Unchanged from Admission Social History: Unchanged from Admission Past Medical History: Unchanged from Admission Objective Active Medications: Acetaminophen (Tylenol Tab*) 650 mg PO Q6H PRN PRN Reason: MILD PAIN or TEMP > 100.4 Last Admin: 09/19/19 21:27 Dose: 650 mg Chlorthalidone (Hygroton Tab*) 50 mg PO DAILY [facility] Last Admin: 09/20/19 07:51 Dose: 50 mg Docusate Sodium (Colace Cap*) 100 mg PO BEDTIME [facility] Last Admin: 09/19/19 21:27 Dose: 100 mg Enalaprilat (Vasotec Iv*) 1.25 mg IV Q6H PRN PRN Reason: Systolic Bp Greater Than: 180 Enoxaparin Sodium (Lovenox(*)) 40 mg SUBCUT Q24H [facility] Last Admin: 09/19/19 15:05 Dose: 40 mg Famotidine (Pepcid Tab*) 20 mg PO DAILY [facility] Last Admin: 09/20/19 07:51 Dose: 20 mg Fluticasone Propionate (Flonase Nasal [place] 50mcg*) 1 spray BOTH NARES BEDTIME [facility] Last Admin: 09/19/19 21:28 Dose: 1 spray Potassium Chloride (Potassium Chloride 20 Meq/100 Ml Ivpremix*) 20 meq in 100 mls @ 50 mls/hr IV Q2H [facility] Stop: 09/20/19 11:59 Last Admin: 09/20/19 10:15 Dose: 50 mls/hr Latanoprost (Xalatan 0.005%*) 1 drop BOTH EYES 2100 [facility]; Protocol Last Admin: 09/19/19 19:41 Dose: 1 drop Lisinopril (Prinivil Tab*) 20 mg PO DAILY [facility] Last Admin: 09/20/19 07:51 Dose: 20 mg Ondansetron HCl (Zofran Inj*) 4 mg IV Q6H PRN PRN Reason: NAUSEA Potassium Chloride (Klor Con Er Tab*) 20 meq PO Q4H [facility] Stop: 09/20/19 12:01 Last Admin: 09/20/19 07:51 Dose: 20 meq Spironolactone (Aldactone Tab*) 25 mg PO DAILY [facility] Last Admin: 09/20/19 10:15 Dose: 25 mg Vital Signs - 8 hr 09/20/19 09/20/19 03:31 07:57 Temperature 98.2 F 97.3 F Pulse Rate 60 55 Respiratory 16 16 Rate Blood Pressure 136/51 153/50 (mmHg) O2 Sat by Pulse 98 98 Oximetry Oxygen Devices in Use Now: None Appearance: This is a well developed woman sitting up in bed in no acute distress. Eyes: No Scleral Icterus, PERRLA Ears/Nose/Mouth/Throat: NL Teeth, Lips, Gums, Clear Oropharnyx, Mucous Membranes Moist Neck: NL Appearance and Movements; NL JVP, Trachea Midline Respiratory: Symmetrical Chest Expansion and Respiratory Effort, Clear to Auscultation Cardiovascular: NL Sounds; No Murmurs; No JVD, RRR, No Edema Abdominal: NL Sounds; No Tenderness; No Distention Lymphatic: No Cervical Adenopathy Extremities: No Edema, No Clubbing, Cyanosis Skin: No Rash or Ulcers, No Nodules or Sclerosis Neurological: Alert and Oriented x 3 Lines/Tubes/Other Access: Clean, Dry and Intact Peripheral IV Result Diagrams: 09/20/19 06:11 09/20/19 06:11 Assess/Plan/Problems-Billing Assessment: This is a 79 year old woman with a past medical history of HTN, glaucoma and GERd who was admitted on 09/19/19 for hypertensive emergency and new onset HFpEF. - Patient Problems (1) Hypertensive emergency Current Visit: Yes Status: Acute Code(s): I16.1 - HYPERTENSIVE EMERGENCY SNOMED Code(s): 935892394813166 Comment: -Normally takes lisinopril. Initially treated with IV labetolol and started on chlorthalidone last night. Blood pressure improved though still elevated with SBP of 150's. Due to resulting low potassium after the chlorthalidone, initiated spironolactone this morning. -There did not appear to be a clear precipitating event other than having a cold a week prior. Did not take any cold medicines. She is experiencing caregiver strain with her , reviewed stress reduction techniques. Patient is not open to pharmacological agents at this time. (2) (HFpEF) heart failure with preserved ejection fraction Current Visit: Yes Status: Acute Code(s): I50.30 - UNSPECIFIED DIASTOLIC ( CONGESTIVE) HEART FAILURE SNOMED Code(s): 680728341 Comment: -Echo showed EF of 70-75% with no structural abnormalities. Is no longer having any lower extremity edema. Continue chlorthalidone. -This was new onset, likely preciptated by HTN. (3) Glaucoma Current Visit: Yes Status: Acute Code(s): H40.9 - UNSPECIFIED GLAUCOMA SNOMED Code(s): 12243959 Comment: -Continue latanoprost. (4) DVT (deep venous thrombosis) Current Visit: Yes Status: Acute Code(s): I82.409 - ACUTE EMBOLISM AND THOMBOS UNSP DEEP VN UNSP LOWER EXTREMITY SNOMED Code(s): 605431928 (5) Full code status Current Visit: Yes Status: Acute Code(s): Z78.9 - OTHER SPECIFIED HEALTH STATUS SNOMED Code(s): 478302156 Status and Disposition: Condition: fair Dispo: Admit obv to 4S. Attending: Birgit Harris
[2019-09-20] MEDS: Enoxaparin(*) 40 MG/0.4 ML SYR SUBCUT SCH (14:29)
[2019-09-20 15:51] LABS: BUN/Creatinine Ratio 14.2 (8-20); Calcium 9.4 mg/dL (8.6-10.3); EGFR African American 56.5 (>60); EGFR Non-African American 46.7 (>60); Potassium 3.7 mmol/L (3.5-5.0)
[2019-09-20] MEDS: Docusate CAP* 100 MG PO SCH (20:01)
[2019-09-20] MEDS: Latanoprost 0.005%* 2.5 ml BTL BOTH EYES SCH (20:01)
[2019-09-20] MEDS: Fluticasone NASAL SPRAY 50MCG* 16 gm SPRAY BTL BOTH NARES SCH (20:01)
[2019-09-21 05:58] LABS: ABS Eosinophils 0.3 10^3/ul (0-0.6); ABS Lymphocytes 2.3 10^3/ul (1.0-4.8); ABS Monocytes 0.4 10^3/ul (0-0.8); Eosinophil % 4.6 %; Hematocrit 29 % (35-47); Lymphocyte % 38.4 %; Mean Corpuscular HGB Conc 34 g/dL (31-36); Mean Corpuscular Hemoglobin 30 pg (27-31); Mean Corpuscular Volume 88 fL (80-97); Mean Platelet Volume 7.8 fL (7.4-10.4); Platelet Count 213 10^3/uL (150-450); Red Blood Count 3.29 10^6 /uL (3.70-4.87); Red Cell Distribution Width 13 % (10-15); White Blood Count 6.1 10^3/uL (3.5-10.8)
[2019-09-21 06:17] LABS: Anion Gap 5 mmol/L (2-11); Blood Urea Nitrogen 14 mg/dL (6-24); CO2 Carbon Dioxide 25 mmol/L (22-32); Calcium 9.2 mg/dL (8.6-10.3); Chloride 109 mmol/L (101-111); EGFR African American 65.1 (>60); EGFR Non-African American 53.8 (>60); Glucose 94 mg/dL (70-100); Sodium 139 mmol/L (135-145)
[2019-09-21] MEDS: Chlorthalidone TAB* 50 MG PO SCH (09:12)
[2019-09-21] MEDS: Lisinopril TAB* 10 MG PO SCH (09:13)
[2019-09-21] MEDS: Spironolactone TAB* 25 MG PO SCH (09:13)
[2019-09-21] MEDS: Famotidine TAB* 20 MG PO SCH (09:13)
[2019-09-21] MEDS ORDERED: hydrOXYzine HCL TAB* 10 MG PO PRN (12:13)
[2019-09-21] MEDS ORDERED: LORazepam TAB(*) 0.5 MG PO ONE (12:14)
[2019-09-21] MEDS ORDERED: Diazepam TAB(*) 5 MG PO ONE (12:18)
--- NOTE | 2019-09-21 12:34 | PN ---
Subjective Date of Service: 09/21/19 Interval History: Ms. Haider presented with SOB and edema. She reports that edema is resolved, and she has SOB described as "I need to take a deep breath" as times, but finds this is associated with anxiety/stress. She feels that this is the cause of her elevated blood pressure. She is her 's primary caregiver, and has been having trouble with stress due to this. She reports no episodes of CP. No other complaints today. Family History: Unchanged from Admission Social History: Unchanged from Admission Past Medical History: Unchanged from Admission Objective Active Medications: Acetaminophen (Tylenol Tab*) 650 mg PO Q6H PRN PRN Reason: MILD PAIN or TEMP > 100.4 Last Admin: 09/19/19 21:27 Dose: 650 mg Chlorthalidone (Hygroton Tab*) 50 mg PO DAILY [facility] Last Admin: 09/21/19 09:12 Dose: 50 mg Diazepam (Valium Tab(*)) 2.5 mg PO ONCE ONE Stop: 09/22/19 06:01 Docusate Sodium (Colace Cap*) 100 mg PO BEDTIME [facility] Last Admin: 09/20/19 20:01 Dose: 100 mg Enalaprilat (Vasotec Iv*) 1.25 mg IV Q6H PRN PRN Reason: Systolic Bp Greater Than: 180 Enoxaparin Sodium (Lovenox(*)) 40 mg SUBCUT Q24H [facility] Last Admin: 09/20/19 14:29 Dose: 40 mg Famotidine (Pepcid Tab*) 20 mg PO DAILY [facility] Last Admin: 09/21/19 09:13 Dose: 20 mg Fluticasone Propionate (Flonase Nasal [place] 50mcg*) 1 spray BOTH NARES BEDTIME [facility] Last Admin: 09/20/19 20:01 Dose: 1 spray Hydroxyzine HCl (Atarax Tab*) 10 mg PO Q4H PRN PRN Reason: ANXIETY Latanoprost (Xalatan 0.005%*) 1 drop BOTH EYES 2100 [facility]; Protocol Last Admin: 09/20/19 20:01 Dose: 1 drop Lisinopril (Prinivil Tab*) 20 mg PO DAILY [facility] Last Admin: 09/21/19 09:13 Dose: 20 mg Ondansetron HCl (Zofran Inj*) 4 mg IV Q6H PRN PRN Reason: NAUSEA Spironolactone (Aldactone Tab*) 25 mg PO DAILY [facility] Last Admin: 09/21/19 09:13 Dose: 25 mg Vital Signs: Temp Pulse Resp BP Pulse Ox 97.3 F 66 16 162/72 98 09/21/19 12:13 09/21/19 12:13 09/21/19 12:13 09/21/19 12:13 09/21/19 12:13 Oxygen Devices in Use Now: None Appearance: Ms. Haider is an elderly white woman who is sitting up in bed. She appears well, in no acute distress, but is anxious. Eyes: No Scleral Icterus, PERRLA Ears/Nose/Mouth/Throat: NL Teeth, Lips, Gums, Clear Oropharnyx, Mucous Membranes Moist Neck: NL Appearance and Movements; NL JVP, Trachea Midline Respiratory: Symmetrical Chest Expansion and Respiratory Effort, Clear to Auscultation Cardiovascular: NL Sounds; No Murmurs; No JVD, RRR, No Edema Abdominal: NL Sounds; No Tenderness; No Distention, No Hepatosplenomegaly Lymphatic: No Auricular Adenopathy Extremities: No Edema Neurological: Alert and Oriented x 3 Result Diagrams: 09/21/19 05:24 09/21/19 05:24 Microbiology and Other Data: Microbiology 09/19/19 14:04 Urine Culture - Final Urine No Growth (<1,000 CFU/mL) 09/20/19 11:14 Stool Occult Blood (LOU) - Final Stool Assess/Plan/Problems-Billing Assessment: This is a 79 year old woman with a past medical history of HTN, glaucoma and GERD who was admitted on 09/19/19 for hypertensive emergency and new onset HFpEF. - Patient Problems (1) Hypertensive emergency Comment: -SBP 150-160's -initially treated with IV labetolol -on lisinopril 5 at home; this dose was increased to 20 daily -add on chlorthalidone and spioronolactone in setting of hypokalemia -possibly precipitated by URI, but also is under great strain as caregiver for -add on hydroxyzine for anxiety -SW consult ordered (2) Elevated troponin Comment: -elevated troponin peaking at 0.12 with mild EKG abnormalities (no comparison availabe); patient denies CP _RF: HTN, family history -ST recommended, and patient is agreeable to 2-day [place] ST -diazepam for anxiety prior to ST (3) (HFpEF) heart failure with preserved ejection fraction Comment: -pt presents with SOB, LE edema; resolved -Echo showed EF of 70-75% with no structural abnormalities -new onset, likely preciptated by HTN -continue BP control with lisinopril, chlorthalidone, spironolactone (4) Anxiety Comment: -pt reports anxiety and stress -add on hydroxyzine and monitor for improvement (5) Glaucoma Comment: -continue latanoprost (6) DVT (deep venous thrombosis) Comment: -enoxaparin (7) Full code status Status and Disposition: Inpatient. Discharge when stable. Plan for d/c after ST in a.m.
[2019-09-21 13:07] LABS: % Iron Saturation 25 % (15-55); Iron 51 ug/dL (50-212); Total Iron Binding Capacity 207 mcg/dL (250-450); Transferrin 148 mg/dL (203-362)
[2019-09-21 13:32] LABS: Folate 12.17 ng/mL (>3.99)
[2019-09-21] MEDS: Enoxaparin(*) 40 MG/0.4 ML SYR SUBCUT SCH (14:51)
[2019-09-21] MEDS: Fluticasone NASAL SPRAY 50MCG* 16 gm SPRAY BTL BOTH NARES SCH (20:07)
[2019-09-21] MEDS: Latanoprost 0.005%* 2.5 ml BTL BOTH EYES SCH (20:07)
[2019-09-21] MEDS: Docusate CAP* 100 MG PO SCH (20:07)
[2019-09-22] MEDS ORDERED: Diazepam TAB(*) 5 MG PO ONE ×2 (06:00→13:46)
[2019-09-22] MEDS ORDERED: LORazepam TAB(*) 0.5 MG PO ONE (06:00)
[2019-09-22 06:26] LABS: ABS Eosinophils 0.3 10^3/ul (0-0.6); ABS Lymphocytes 2.1 10^3/ul (1.0-4.8); ABS Monocytes 0.5 10^3/ul (0-0.8); ABS Neutrophils 3.4 10^3/ul (1.5-7.7); Eosinophil % 4.6 %; Hematocrit 34 % (35-47); Hemoglobin 10.7 g/dL (12.0-16.0); Lymphocyte % 33.1 %; Mean Corpuscular HGB Conc 32 g/dL (31-36); Mean Corpuscular Hemoglobin 30 pg (27-31); Mean Corpuscular Volume 93 fL (80-97); Mean Platelet Volume 7.9 fL (7.4-10.4); Nucleated Red Blood Cells % 0.1; Platelet Count 242 10^3/uL (150-450); Red Blood Count 3.59 10^6 /uL (3.70-4.87); Red Cell Distribution Width 13 % (10-15); White Blood Count 6.3 10^3/uL (3.5-10.8)
[2019-09-22] MEDS: Lisinopril TAB* 10 MG PO SCH (07:54)
[2019-09-22] MEDS: Chlorthalidone TAB* 50 MG PO SCH (07:54)
[2019-09-22] MEDS: Spironolactone TAB* 25 MG PO SCH (07:55)
[2019-09-22] MEDS: Famotidine TAB* 20 MG PO SCH (07:55)
[2019-09-22] MEDS ORDERED: Diazepam TAB(*) 5 MG ONE (14:17)
[2019-09-22] MEDS: Enoxaparin(*) 40 MG/0.4 ML SYR SUBCUT SCH (15:22)
[2019-09-22 15:36] VITALS: BP 148/58
--- NOTE | 2019-09-23 14:37 | DS ---
CC: Dr. Levi Bliss * DISCHARGE SUMMARY: DATE OF ADMISSION: 09/19/19 DATE OF DISCHARGE: 09/22/19 PRIMARY CARE PROVIDER: Dr. Levi Bliss. ATTENDING PHYSICIAN: Dr. Birgit Harris * (dictated by MARIBELL Hawkins). PRIMARY DIAGNOSES: 1. Hypertensive emergency. 2. Acute heart failure with preserved ejection fraction. 3. Elevated troponin, likely due to demand ischemia; acute coronary syndrome ruled out. 4. Depression, anxiety. SECONDARY DIAGNOSES: 1. Hypertension. 2. Glaucoma. 3. Gastroesophageal reflux disease. DISCHARGE MEDICATIONS: Home medications: 1. Fluticasone nasal spray 2 sprays to both nares daily. 2. Travoprost 2.5 mL ophthalmic drops daily. New home medications: 1. Chlorthalidone 50 mg p.o. daily. 2. Lisinopril 20 mg p.o. daily (increased from 5 mg p.o. daily). 3. Spironolactone 25 mg p.o. daily. 4. Escitalopram 10 mg p.o. daily. 5. Famotidine 20 mg p.o. daily. STUDIES WHILE IN THE HOSPITAL: 1. Nuclear cardiac stress test, impression: No definite fixed or reversible perfusion defects. Assessment: Low risk. 2. EKG stress test, conclusion: Baseline hypertension with hypertensive response to exercise, EKG suggestive of ischemia, as described intermediate risk exercise portion of stress test. 3. Transthoracic echocardiogram, summary: LV cavity mildly reduced. Wall thickness mildly increased. Systolic function normal. Estimated EF 70% to 75% . Wall motion normal. No regional wall motion abnormalities. RV cavity size normal. Systolic function normal. LA mildly to moderately dilated. Pulmonary artery systolic pressure within normal range. No functionally significant valvular abnormalities noted. LABORATORY DATA: 1. CBC: WBC 6.3, hemoglobin 10.7, hematocrit 34, MCV 93, platelets 242. 2. Chemistry: Sodium 139, potassium 4.0, chloride 109, carbon dioxide 25, BUN 14, creatinine 1.00. Hemoglobin A1c is 5.7. 3. Iron 51, TIBC 207, transferrin 148, ferritin 61, B12 279, folate 12.17. 4. Troponin 0.05, 0.12, 0.10. 5. Triglycerides 90, cholesterol 150, LDL 91, HDL 41.1. HISTORY OF PRESENT ILLNESS/HOSPITAL COURSE: Ms. Haider is a 79-year-old female with a past medical history of hypertension and GERD, who presented to the ER on 09/19/19 with complaints of upper respiratory symptoms and bilateral lower extremity edema. The patient was admitted for concern for acute heart failure and hypertensive emergency with a systolic blood pressure of 229. The patient was admitted to the hospital and her lisinopril was titrated up. She then required additional medications. She was placed on chlorthalidone. She became mildly hypokalemic and therefore she was placed on spironolactone. Since that time, her potassium has been within range without outliers. Her blood pressure on these new agents has been systolic 130s to 160s over the last 24 hours. She has been recommended to monitor blood pressure at least once daily and log her blood pressure and follow up with her primary care provider for further adjustments and monitoring. The patient presented with bilateral lower extremity edema. She had mild interstitial pulmonary edema on chest x-ray the day prior to admission. An echocardiogram was obtained and revealed an EF of 70% to 75%. Her lower extremity edema resolved with the initiation of oral diuretics and she had no shortness of breath throughout her stay. At admission, the patient was noted to have an elevated troponin that peaked at 0.12. Her EKG showed a rate of 100 with T-wave flattening in II, III, aVL; T inversion in V1; T flattening in V2. There were no previous EKGs available for comparison. The patient denied chest pain throughout her stay. Her echocardiogram showed no regional wall motion abnormalities. Due to the patient 's age, risk factors, and family history of cardiac disease, a stress was ordered and obtained. Nuclear medicine portion revealed no fixed or reversible defects and was deemed low risk. Her EKG portion was abnormal and did show intermediate risk. Due to EKG findings suggestive of ischemia, Cardiology, Dr. Cote was consulted and recommended continued blood pressure control. He reports that there is no further workup needed for the patient and that her EKG suggestions of ischemia are related to physiological response to exercise. Again, he recommends blood pressure control and follow up with her primary care provider. Ms. Haider reports that she is under a lot of stress at home. She is the primary caregiver for her and feels anxious and worried for him frequently. She also is frequently tearful and reports feeling somewhat depressed. A long discussion was had with the patient regarding coping mechanisms, meditation, and possibly discussion with a therapist or counselor who might help offer some relief. I offered the patient SSRI and she has agreed. She will be started on a low dose of Lexapro with plans for her primary care provider to titrate her dose as necessary. At this time, the patient denies chest pain, shortness of breath, cough, fever, chills, abdominal pain, nausea, vomiting, diarrhea, constipation, myalgias, arthralgias. She does have nasal congestion and stuffiness, but no other complaints today. PHYSICAL EXAMINATION: Vital Signs: Temperature 97.1 temporal, heart rate 64, respiratory rate 17, oxygen saturation 100% on room air, blood pressure 148/58. General: Ms. Haider is a well-developed, well-nourished, average weight, older white female, who is sitting in her chair with lower extremities at the floor. She appears to be in no acute distress. She is very intermittently tearful. She is pleasant, cooperative, and appropriate. HEENT: PERRL. EOMI. Sclerae without injection or icterus. Hearing is grossly intact. Oral mucous membranes are moist. There are no lesions. The pharynx is clear. Tongue is at midline. Palate elevates symmetrically. Cardiovascular: Regular rate and rhythm with S1, S2 present. No murmurs, rubs, clicks, or gallops. There is no JVD. There is no pretibial or pedal edema. Pulmonary: Symmetrical chest expansion. No use of accessory muscles. Clear to auscultation bilaterally without rhonchi, wheeze, or rales. Abdomen: Bowel sounds in all quadrants. Soft, nontender to palpation. Skin: Clean, dry, intact. Neuro: The patient is awake. She is alert and oriented x3. Cranial nerves are grossly intact. She has a steady gait without impairment. DISCHARGE PLAN: Ms. Haider will be discharged to home. CONDITION: Good. DIET: Heart-healthy. ACTIVITY: As tolerated. MEDICATIONS: 1. Continue spironolactone and chlorthalidone daily. 2. Lisinopril dose has been increased; a prescription has been sent to your pharmacy. 3. Start escitalopram 10 mg daily for depression/anxiety; follow up with primary care provider for further titration. EDUCATION: 1. Check and record blood pressure at least once daily and bring log to next primary care provider appointment. 2. Follow up with your primary care provider in 4 to 7 days, discuss recent hospitalization, blood pressure log, recent stress test. 3. Return to the ER or nearest hospital if you experience any return or worsening of symptoms, chest pain or discomfort, shortness of breath, dizziness , lightheadedness, loss of consciousness, high fevers, chills, night sweats, or any other worrisome signs or symptoms. This is a summarized report of a complex medical history and hospital stay. For further details, please see the entire medical record. TIME SPENT: Approximately 35 minutes was spent on this discharge, greater than half that time was spent [id number] with the patient discussing discharge plans and instructions. MARIBELL SANABRIA [id number]/CPS #: [id number] MTDD
== END 2019-09-22 17:20 | disposition home or self-care (01) | DRG 304 ==
LOC: ED 11:44 → MEDTELE 13:52 → OBSVTOIN 09-20 12:50
PROVIDERS: ADMIT Internal Medicine; ATTEND Internal Medicine
DX: I16.1 Hypertensive emergency (principal); I50.31 Acute diastolic (congestive) heart failure; I11.0 Hypertensive heart disease with heart failure; R74.8 Abnormal levels of other serum enzymes; F32.9 Major depressive disorder, single episode, unspecified; F41.9 Anxiety disorder, unspecified; H40.9 Unspecified glaucoma; K21.9 Gastro-esophageal reflux disease without esophagitis; E87.6 Hypokalemia; Z79.899 Other long term (current) drug therapy; Z88.0 Allergy status to penicillin; Z82.49 Family history of ischemic heart disease and other diseases of the circulatory system
CPT/HCPCS: 36415; 78452; 80048; 80053; 80061; 81003; 81015; 82272; 82607; 82728; 82746; 83036; 83540; 83550; 83735; 83880; 84443; 84484; 85025; 87086; 93017; 93306; 99284; A9270-GY; A9502; G0378; J1650; J3480